=== PATIENT | female | born 1950 | race Caucasian/White ===

== ENCOUNTER → 2018-12-05 15:27 | Outpatient (CLI) | payer MEDICARE, BC, SELFPAY ==
--- NOTE | 2018-12-05 | DI.RAD.S_ITS ---
PROCEDURE: XR ANKLE LT MIN 3V INDICATIONS: Ankle Pain TECHNIQUE: 3 views of the ankle were acquired. COMPARISON: None. FINDINGS: Bones: No fractures or dislocations. Ankle mortise is normally aligned. No suspicious bony lesions. Soft tissues: No tibiotalar joint effusion. Achilles tendon appears normal. Mild soft tissue swelling right ankle joint is seen. IMPRESSION: No ankle fracture or dislocation. Ankle mortise is congruent. Mild ankle soft tissue swelling. Dictated by: Samuel Lemus M.D. on 12/05/2018 at 17:03 Approved by: Samuel Lemus M.D. on 12/05/2018 at 17:04
--- NOTE | 2018-12-05 | DI.RAD.S_ITS ---
PROCEDURE: XR SHOULDER RT MIN 2V INDICATIONS: Shoulder pain TECHNIQUE: 3 views of the shoulder were acquired. COMPARISON: [facility], , SHOULDER MINIMUM 2VIEW RIGHT, 02/06/2007, 12:13. FINDINGS: Bones: Moderate acromioclavicular joint and glenohumeral joint osteoarthritis is seen. No fractures or dislocations. No suspicious bony lesions. Visualized ribs appear intact. Soft tissues: No suspicious soft tissue calcifications. IMPRESSION: Moderate right shoulder joint osteoarthritis. No fracture or dislocation. Dictated by: Samuel Lemus M.D. on 12/05/2018 at 16:57 Approved by: Samuel Lemus M.D. on 12/05/2018 at 17:03
== END ==
PROVIDERS: PCP Family Medicine; Visit Provider Family Medicine
DX: M25.572 Pain in left ankle and joints of left foot (principal); M25.511 Pain in right shoulder; M19.011 Primary osteoarthritis, right shoulder; M79.89 Other specified soft tissue disorders
CPT/HCPCS: 73030; 73610

== ENCOUNTER 2019-01-03 02:08 | Emergency (ER) | payer MEDICARE, BC, SELFPAY ==
[2019-01-03 02:14] VITALS: BP 141/80; PULSE 78; RESP 14; TEMP 36.7; O2SAT 100; BMI 22.1
[2019-01-03 02:58] VITALS: BP 179/101; PULSE 89
[2019-01-03] MEDS: KETOROLAC 60 MG/2 ML VIAL 30 MG IV (02:58)
[2019-01-03] MEDS: PROCHLORPERAZINE 10 MG/2 ML VIAL IV (02:58)
[2019-01-03] MEDS: diphenhydrAMINE 50 MG/ML VIAL 25 MG IV (02:58)
[2019-01-03] MEDS: SODIUM CHLORIDE 0.9% 1,000 ML 1000 ML IV (02:59)
[2019-01-03 03:03] LABS: Add Manual Diff / Slide Review NO; Basophils Absolute Auto 100 /uL (0-100); Basophils Percent Auto 0.7 % (0-2); Eosinophils Absolute Auto 200 /uL (0-450); Eosinophils Percent Auto 1.2 % (2-4); Hematocrit 47.3 % (36-46); Hemoglobin 15.7 g/dL (12.0-16.0); Lymphocytes Absolute Auto 2300 /uL (1100-4500); Lymphocytes Percent Auto 16.6 % (25-40); Mean Corpuscular HGB Conc 33.3 % (30-36); Mean Corpuscular Hemoglobin 28.8 PG (26-34); Mean Corpuscular Volume 86.4 fL (80-100); Monocytes Absolute Auto 600 /uL (0-900); Monocytes Percent Auto 4.6 % (3-14); Neutrophils Absolute Auto 10400 /uL (1500-7000); Neutrophils Percent Auto 76.9 % (50-75); Platelet Count 368 X10^3/uL (150-400); Red Blood Cell Count 5.47 X10^6/uL (4.0-5.2); Red Cell Distribution Width 12.9 % (11.6-14.8); White Blood Cell Count 13.6 X10^3/uL (4.5-11.0)
[2019-01-03 03:16] LABS: BUN Creatinine Ratio 28.3 (6-22); Blood Urea Nitrogen 17 mg/dL (7-17); Calcium 10.1 mg/dL (8.4-10.2); Carbon Dioxide 32 mmol/L (22-32); Chloride 97 mmol/L (98-107); Estimated Glomerular Filt Rate > 60.0 mL/min (>60); Glucose 106 mg/dL (80-110); HEMOLYSIS 28 (0-50); Potassium 3.6 mmol/L (3.4-5.1); Sodium 140 mmol/L (137-145)
[2019-01-03 03:17] VITALS: BP 177/76; PULSE 74; RESP 16; O2SAT 100
--- NOTE | 2019-01-03 03:17 | PC.NURSE ---
Pt denies needs at this time. States my headache is a little bit better can you turn the light off so i can sleep Lights lowered and pt given a warm blanket. Pt curled up rolled over and appears to be sleeping now. Pt on spo2 monitor and bp cuff
--- NOTE | 2019-01-03 03:20 | PC.NURSE ---
paper tape applied, pt stated paper tape does not bother her skin.
--- NOTE | 2019-01-03 03:39 | ED_ITS ---
HPI - Headache General Chief Complaint: Headache Stated Complaint: Headache for 2 weeks Time Seen by Provider: 01/03/19 02:13 Source: patient and EMS Limitations: no limitations History of Present Illness HPI Narrative: The patient is a 68-year-old female who presents with headache. She has a history of migraines and fibromyalgia. She has had ongoing headache today she she says for 2 days. She actually was seen evaluated [facility] on 01/01/2019. At that time she said she fell and hit her head 5 days prior to and that she had a negative head CT at that time. She said she was previously given Dilaudid 2 separate occasions for headache and that is healing thing that helps. She actually took 10 mg of Valium prior to arrival but she says it has not helped. She denies any nausea or vomiting. She is sensitive to light. She is not on any anticoagulation. She was seen at [facility] on 12/15/2018 and she had an MRI prior to that visit. She was seen again on 01/01/2019 where she had a negative head CT. All visit she immediately asked for Dilaudid including today. Complaint: headache Onset (ago): day(s) (2) Related Data Home Medications Medication Instructions Recorded Confirmed Glucosamine Sulfate (GLUCOSAMINE) #0 03/06/13 esomeprazole magnesium [Nexium] 40 mg PO QDAY #0 03/06/13 fluoxetine [Prozac] 80 1 #0 03/06/13 levothyroxine [Synthroid] #0 03/06/13 meloxicam [Mobic] #0 03/06/13 oxycodone [Roxicodone] 5 mg PO Q4P #0 03/06/13 pregabalin [Lyrica] 1 Q DAY #0 03/06/13 rosuvastatin [Crestor] #0 03/06/13 venlafaxine 50 mg PO #0 03/06/13 Allergies Allergy/AdvReac Type Severity Reaction Status Date / Time sulfamethoxazole Allergy Verified 01/03/19 02:19 [From ] trimethoprim [From ] Allergy Verified 01/03/19 02:19 adhesive tape AdvReac Verified 01/03/19 02:19 Review of Systems Review of Systems GENERAL: Denies chills, fatigue, malaise, fever, sweats, travel HEENT: Denies sinus pain, ear pain, sore throat, difficulty swallowing, neck pain RESPIRATORY: Denies dyspnea, cough, wheezing, hemoptysis, sputum. CARDIOVASCULAR: Denies chest pain, palpitations, orthopnea, edema GASTROINTESTINAL: Denies nausea, vomiting, abdominal pain, diarrhea, constipation, melena. : Denies dysuria, frequency, incontinence, hematuria, urinary retention, flank pain. MUSCULOSKELETAL: Denies weakness, joint pain, or bony pain SKIN: No rash, no erythema, no pruritus NEUROLOGIC: Headache PSYCHIATRIC: No concerning psychosocial issues. 12 point review of systems is negative except for those stated above and HPI [facility] Medical History (Updated 01/03/19 @ 05:21 by Jeaneth Dent DO) Fibromyalgia (Acute) Social History Smoking Status: Never smoker Social History Smoking Status: Never smoker Exam Initial Vital Signs Initial Vital Signs: Vital Signs Temperature 98.1 F 01/03/19 02:14 Pulse Rate 78 01/03/19 02:14 Respiratory Rate 14 01/03/19 02:14 Blood Pressure 141/80 H 01/03/19 02:14 Pulse Oximetry 100 01/03/19 02:14 GENERAL: Patient appears in pain, closing eyes. And in no acute distress. HEENT: Head atraumatic,EOMI, pupils reactive, face symmetric, moist mucous membranes CARDIOVASCULAR: Regular rate and rhythm without murmurs, rubs or gallops. RESPIRATORY: Breath sounds equal bilaterally, no wheezes rales or rhonchi. ABDOMEN: Soft, nontender. Normoactive bowel sounds all 4 quadrants. No guarding or rebound. EXTREMITIES: Normal range of motion, no clubbing or edema. Neurovascularly intact NEUROLOGICAL: Alert and oriented x4.Normal gait and speech. Cranial nerves II through XII grossly intact. Good [id number], good wbog-[id number], strength equal bilaterally, no dysarthria or aphasia, sensation in tact to soft touch bilaterally, no visual changes, no facial droop SKIN: Warm, dry, no laceration, no petechiae, no rashes or lesions. Scores NIH Stroke Scale Level of Conciousness: Alert, keenly responsive Ask month/age: Answers both questions correctly. Open/close eyes, close hand: Performs both tasks correctly Best gaze horizontal: Normal Visual sharpe: No visual loss Facial palsy: Normal symetrical movement Left arm drift: No drift for full 10 sec Right arm drift: No drift for full 10 sec Left leg drift: No drift for full 10 sec Right leg drift: No drift for full 10 sec Limb ataxia: Absent Sensory on face/arms/legs: Normal, no sensory loss Best language: No aphasia, normal Dysarthria: Normal Extinction or inattention: No abnormality Total NIH Stroke scale score: 0 Course Orders Ordered: ED Orders 01/03/19 02:55 Basic Metabolic Panel Stat Complete Blood Count AUTO DIFF Stat Discontinued Medications Diphenhydramine HCl (Benadryl) 25 mg IV NOW ONE Stop: 01/03/19 02:15 Last Admin: 01/03/19 02:58 Dose: 25 mg Sodium Chloride (Normal Saline 0.9%) 1,000 mls @ 1,000 mls/hr IV BOLUS ONE Stop: 01/03/19 03:13 Last Admin: 01/03/19 02:59 Dose: 1,000 mls/hr Ketamine HCl (Ketalar) 10 mg IV NOW ONE Stop: 01/03/19 04:50 Last Admin: 01/03/19 05:18 Dose: 10 mg Ketorolac Tromethamine (Toradol) 30 mg IV NOW ONE Stop: 01/03/19 02:15 Last Admin: 01/03/19 02:58 Dose: 30 mg Prochlorperazine (Compazine) 10 mg IV NOW ONE Stop: 01/03/19 02:15 Last Admin: 01/03/19 02:58 Dose: 10 mg Vital Signs - 8 hr 01/03/19 02:14 01/03/19 02:58 01/03/19 03:17 Temperature 98.1 F Pulse Rate 78 89 74 Respiratory Rate 14 16 Blood Pressure 141/80 H 179/101 H Blood Pressure [Right Arm] 177/76 H Pulse Oximetry 100 100 01/03/19 03:53 01/03/19 05:00 Temperature Pulse Rate 82 Respiratory Rate Blood Pressure Blood Pressure [Right Arm] 165/70 H 161/93 H Pulse Oximetry 100 MDM - Headache Lab Data Attestation: I reviewed the patient's lab results. Result diagrams: 01/03/19 02:55 01/03/19 02:55 Lab Results 01/03/19 01/03/19 Range/Units 02:55 02:55 WBC 13.6 H (4.5-11.0) X10^3/uL RBC 5.47 H (4.0-5.2) X10^6/uL Hgb 15.7 (12.0-16.0) g/dL Hct 47.3 H (36-46) % MCV 86.4 (80-100) fL MCH 28.8 (26-34) PG MCHC 33.3 (30-36) % RDW 12.9 (11.6-14.8) % Plt Count 368 (150-400) X10^3/uL Neut % (Auto) 76.9 H (50-75) % Lymph % (Auto) 16.6 L (25-40) % [place] % (Auto) 4.6 (3-14) % Eos % (Auto) 1.2 L (2-4) % Baso % (Auto) 0.7 (0-2) % Neut # (Auto) 21110 H (1910-2483) /uL Lymph # (Auto) 2300 (6271-7002) /uL [place] # (Auto) 600 (0-900) /uL Eos # (Auto) 200 (0-450) /uL Baso # (Auto) 100 (0-100) /uL Sodium 140 (137-145) mmol/L Potassium 3.6 (3.4-5.1) mmol/L Chloride 97 L (98-107) mmol/L Carbon Dioxide 32 (22-32) mmol/L BUN 17 (7-17) mg/dL Creatinine 0.60 (0.52-1.04) mg/dL Estimated GFR > 60.0 (>60) mL/min BUN/Creatinine Ratio 28.3 H (6-22) Glucose 106 (80-110) mg/dL Calcium 10.1 (8.4-10.2) mg/dL MDM Narrative Medical decision making narrative: Patient is sleeping soon after she arrived. Likely the 10 mg of Valium that she took. She was given the migraine cocktails well. 4:40 a.m.. Patient awake still complaining of headache. She has no way of getting home. She has some mild leukocytosis but was put on Decadron from her visit 18th. She febrile no meningeal signs. No focal deficits. At this time I do not see any need for repeat imaging. 6:15 a.m.. Patient received IV ketamine which he says has helped her headache and she says it is now going down and she feels able to go home. Discharge Plan Departure Patient Disposition: Home Clinical Impression: Headache Qualifiers: Headache type: other headache syndrome Qualified Code(s): G44.89 - Other headache syndrome Instructions: DI for Migraine, DI for Headache Activity Restrictions/Additional Instructions: *You have been diagnosed with headache *What to do: Recommend seeing headache specialist for chronic pain management. Rest, increase fluid intake, sleep *Continue to take medications as directed *Follow up with your primary care provider in 2-3 days *Return to ER if you should have worsening headache, neck pain, persistent vomiting or any new, worsening or concerning symptoms Prescriptions: No Action fluoxetine [Prozac] 40 MG capsule 80 1 Qty: 0 RF: 0 meloxicam [Mobic] 7.5 MG tablet Qty: 0 RF: 0 pregabalin [Lyrica] 100 MG capsule 1 Q DAY Qty: 0 RF: 0 esomeprazole magnesium [Nexium] 40 MG capsule,delayed release(DR/EC) 40 mg PO QDAY Qty: 0 RF: 0 levothyroxine [Synthroid] 125 MCG tablet Qty: 0 RF: 0 venlafaxine 50 MG tablet 50 mg PO Qty: 0 RF: 0 rosuvastatin [Crestor] 20 MG tablet Qty: 0 RF: 0 Glucosamine Sulfate (GLUCOSAMINE) Qty: 0 RF: 0 oxycodone [Roxicodone] 5 MG tablet 5 mg PO Q4P Qty: 0 RF: 0 Referrals: Raffi Quiroga MD [Primary Care Provider] -
[2019-01-03 03:53] VITALS: BP 165/70; PULSE 82; O2SAT 100
[2019-01-03 05:00] VITALS: BP 161/93
[2019-01-03] MEDS: KETAMINE 500 MG/5 ML INJ 10 MG IV (05:18)
[2019-01-03 06:43] VITALS: BP 161/90; PULSE 76; RESP 14; O2SAT 99
== END 2019-01-03 06:52 | disposition home or self-care (01) ==
PROVIDERS: Emergency Provider Emergency Medicine; PCP Family Medicine
DX: G44.89 Other headache syndrome (principal)
CPT/HCPCS: 36591; 80048; 85025; 96361; 96374; 96375; 99283; 99284; J0780; J1200; J1885

== ENCOUNTER 2019-04-21 18:15 | Emergency (ER) | payer MEDICARE, BC, SELFPAY ==
[2019-04-21 18:31] VITALS: BP 162/79; PULSE 66; RESP 12; TEMP 36.9; O2SAT 100
[2019-04-21 18:32] VITALS: BP 162/79; PULSE 66; RESP 14; O2SAT 99
--- NOTE | 2019-04-21 18:33 | DI.RAD.S_ITS ---
PROCEDURE: XR CHEST 1V INDICATIONS: chest pain TECHNIQUE: One view of the chest was acquired. COMPARISON: [facility], CR, XR CHEST 2VW, 01/17/2016, 15:40. Located Within [facility], CR, CHEST 2 VIEW, 10/27/2015, 20:09. FINDINGS: Surgical changes and devices: There is bone cement redemonstrated in the lower thoracic spine. Lungs and pleura: There are indistinct peripheral opacities in the left lung base which appears slightly increased in prominence but may been present on the prior studies. Findings are suggestive of pleural plaques. Right lung is clear. No pleural effusions or pneumothorax. Mediastinum: Mediastinal contours appear unchanged. Heart size is normal. Bones and chest wall: No suspicious bony lesions. Overlying soft tissues appear unremarkable. IMPRESSION: 1. Indistinct left basilar peripheral opacities suggestive of pleural plaques appear slightly increased in prominence. Elsewhere, no acute consolidation. Recommend a followup PA and lateral study when clinically feasible. Dictated by: Henry Mabry M.D. on 04/21/2019 at 20:16 Approved by: Henry Mabry M.D. on 04/21/2019 at 20:19
[2019-04-21 18:42] LABS: Add Manual Diff / Slide Review NO; Basophils Absolute Auto 100 /uL (0-100); Basophils Percent Auto 0.7 % (0-2); Eosinophils Absolute Auto 200 /uL (0-450); Eosinophils Percent Auto 1.2 % (2-4); Hematocrit 41.1 % (36-46); Hemoglobin 13.4 g/dL (12.0-16.0); Lymphocytes Absolute Auto 3100 /uL (1100-4500); Lymphocytes Percent Auto 16.7 % (25-40); Mean Corpuscular HGB Conc 32.6 % (30-36); Mean Corpuscular Volume 85.9 fL (80-100); Monocytes Absolute Auto 1400 /uL (0-900); Monocytes Percent Auto 7.6 % (3-14); Neutrophils Absolute Auto 13600 /uL (1500-7000); Neutrophils Percent Auto 73.8 % (50-75); Platelet Count 386 X10^3/uL (150-400); Red Blood Cell Count 4.78 X10^6/uL (4.0-5.2); Red Cell Distribution Width 14.5 % (11.6-14.8); White Blood Cell Count 18.4 X10^3/uL (4.5-11.0)
[2019-04-21] MEDS: ASPIRIN 81 MG CHEW TAB 324 MG PO (18:44)
[2019-04-21 18:46] LABS: Prothrombin Time 11.9 SECONDS (10.1-12.7)
--- NOTE | 2019-04-21 18:47 | ED.CHESTPAIN ---
HPI - Chest Pain General Chief Complaint: Chest Pain Stated Complaint: THINKS HAD A HEART ATTACK SATURDAY Time Seen by Provider: 04/21/19 18:39 Source: patient Mode of arrival: Ambulatory Limitations: no limitations History of Present Illness HPI narrative: The patient had a 1 hour episode of chest pain 4 days ago. She was at home, she leaned over to pick something up. She developed central sternal chest pain, radiating across her chest. She developed dyspnea. She laid down in bed for about 1 hour, symptoms resolved. She has not recently been ill. She has a history of restrictive lung disease diagnosed in her 20s, but has been asymptomatic of any lung disease for many years. She smoked as a youth, not in recent decades. She has no current diagnosis of cardiac or lung disease. She is on medications for hypothyroidism. She also has a past history of hypertension, but has been off medications for several years. She saw her family practice physician today. He started on metoprolol 50 mg b.i.d., advised her to come here for further evaluation. Apparently there is a subtle change on a baseline EKG he has at the office, there is no prior EKG at this hospital. We do not have access to her prior records. The patient has been asymptomatic for 4 days. The patient also explains that she is under lot of stress at home. She did not elaborate. Related Data Home Medications Medication Instructions Recorded Confirmed Glucosamine Sulfate (GLUCOSAMINE) #0 03/06/13 esomeprazole magnesium [Nexium] 40 mg PO QDAY #0 03/06/13 fluoxetine [Prozac] 80 1 #0 03/06/13 levothyroxine [Synthroid] #0 03/06/13 meloxicam [Mobic] #0 03/06/13 oxycodone [Roxicodone] 5 mg PO Q4P #0 03/06/13 pregabalin [Lyrica] 1 Q DAY #0 03/06/13 rosuvastatin [Crestor] #0 03/06/13 venlafaxine 50 mg PO #0 03/06/13 Allergies Allergy/AdvReac Type Severity Reaction Status Date / Time sulfamethoxazole Allergy Verified 01/03/19 02:19 [From ] trimethoprim [From ] Allergy Verified 01/03/19 02:19 adhesive tape AdvReac Verified 01/03/19 02:19 Review of Systems Review of Systems ROS Unobtainable: All systems reviewed & are unremarkable except as noted in HPI and below Constitutional Constitutional: Reports as per HPI, Denies fatigue, Denies lethargy, Denies malaise, Denies night sweats and Denies poor appetite Eyes Comments: No complaints ENT Ears, Nose, Mouth, and Throat: Denies change in voice, Denies vertigo, Denies dizziness, Denies neck pain and Denies sore throat Cardiovascular Cardiovascular: Reports as per HPI and Reports chest pain at rest Respiratory Respiratory: Reports as per HPI (Dyspnea associated with the chest pain 4 days ago.), Denies cough and Denies wheezing Gastrointestinal Gastrointestinal: Denies abdominal pain, Denies diarrhea, Denies nausea and Denies vomiting Musculoskeletal Musculoskeletal: Denies back pain, Denies myalgias, Denies arthralgias and Denies neck pain Integumentary/Breasts Skin/Breast: Denies dry skin, Denies pruritus, Denies erythema and Denies rash Neurologic Neurologic: Denies confusion, Denies vertigo and Denies dizziness Psychiatric Psychiatric: Reports anxiety, Denies confusion and Denies depression Endocrine Endocrine: Denies fatigue Hematologic/Lymphatic Hematologic/Lymphatic: Denies easy bruising Allergic/Immunologic Allergic/Immunologic: Denies wheezing [facility] Medical History (Updated 04/21/19 @ 20:08 by Raffi Casey MD) Fibromyalgia (Acute) Hypertension (Acute) Hypothyroidism (Acute) Restrictive lung disease (Acute) Surgical History (Updated 04/21/19 @ 19:52 by Raffi Casey MD) No pertinent past surgical history (Acute) Social History (Updated 04/21/19 @ 19:52 by Raffi Casey MD) Smoking Status: Former smoker substance use type: does not use Social History (Updated 04/21/19 @ 19:52 by Raffi Casey MD) Smoking Status: Former smoker substance use type: does not use Exam Initial Vital Signs Initial Vital Signs: Vital Signs Temperature 98.4 F 04/21/19 18:31 Pulse Rate 66 04/21/19 18:31 Respiratory Rate 12 04/21/19 18:31 Blood Pressure 162/79 H 04/21/19 18:31 Pulse Oximetry 100 04/21/19 18:31 Const General: cooperative and well developed Nutritional Appearance: well nourished Orientation: alert, awake, oriented x3 and not confused HENMT Face and sinus: normal facial exam Mouth: oral mucosae normal Throat: posterior oropharynx normal Eyes General: appearance normal, both eyes and all related structures Eyelids: eyelids normal Conjunctivae: conjunctivae normal Sclera: sclerae normal Pupils: PERRL EOM: EOM intact bilaterally Neck Neck: full ROM, No lymphadenopathy and No JVD Thyroid: thyroid normal Chest Chest: normal inspection of the chest Resp Effort & Inspection: normal respiratory effort and able to speak in complete sentences Auscultation: clear to auscultation bilaterally, no rales, no rhonchi and no wheezes Cardio Rate: regular rate Rhythm: regular rhythm Heart Sounds: S1 normal, S2 normal, no click, no gallops, no murmurs and no rubs Pulses: normal peripheral pulses GI Inspection: non-distended Palpation: soft, no hepatosplenomegaly, No guarding, No pulsatile mass and No tender Auscultation: normal bowel sounds Back/Spine/Pelvis Back: normal to inspection Skin General: no rashes or lesions noted Neuro General: alert, oriented x3, gait normal and no focal motor deficits Speech: speech normal Extrem General: full ROM, no pedal edema and no calf tenderness Psych Appearance: well kempt Mental Status: mental status grossly normal Attitude: cooperative Thought Content: normal Judgment: judgment good Course Course Course Narrative: The case was discussed with Dr. Lemus with [facility] in [place], [place]. The patient has been asymptomatic of the episode of chest pain for 4 days. She has an intermediate troponin with no critical EKG changes. The family practice doctor started her on Lopressor, I have started on aspirin. The patient will be contacted by Cardiology tomorrow for outpatient follow-up, she will be instructed return if symptoms escalate. Orders Ordered: ED Orders 04/21/19 18:28 EKG-12 Lead Stat 04/21/19 18:30 Complete Blood Count AUTO DIFF Stat Comprehensive Metabolic Panel Stat Free T4 Free Thyroxine Stat Lipase Stat Partial Thromboplastin Time Stat Prothrombin Time INR Stat TSH w/ Reflex to FT4 Stat Troponin & CK Cardiac Panel Stat 04/21/19 18:33 XR chest 1V Stat Discontinued Medications Aspirin (Aspirin Chew) 324 mg PO NOW ONE Stop: 04/21/19 18:34 Last Admin: 04/21/19 18:44 Dose: 324 mg Documented by: SALAZAR Vital Signs Vital signs: Vital Signs - 8 hr 04/21/19 18:31 04/21/19 18:32 04/21/19 19:35 Temperature 98.4 F Pulse Rate 66 66 64 Respiratory Rate 12 14 18 Blood Pressure 162/79 H Blood Pressure [Left Arm] 162/79 H 122/63 Pulse Oximetry 100 99 98 04/21/19 20:09 Temperature Pulse Rate 65 Respiratory Rate 26 H Blood Pressure Blood Pressure [Left Arm] 117/67 Pulse Oximetry 96 MDM - Chest Pain Lab Data Result diagrams: 04/21/19 18:30 04/21/19 18:30 Labs: Lab Results 04/21/19 04/21/19 04/21/19 Range/Units 18:30 18:30 18:30 WBC 18.4 H (4.5-11.0) X10^3/uL RBC 4.78 (4.0-5.2) X10^6/uL Hgb 13.4 (12.0-16.0) g/dL Hct 41.1 (36-46) % MCV 85.9 (80-100) fL MCH 28.0 (26-34) PG MCHC 32.6 (30-36) % RDW 14.5 (11.6-14.8) % Plt Count 386 (150-400) X10^3/uL Neut % (Auto) 73.8 (50-75) % Lymph % (Auto) 16.7 L (25-40) % [place] % (Auto) 7.6 (3-14) % Eos % (Auto) 1.2 L (2-4) % Baso % (Auto) 0.7 (0-2) % Neut # (Auto) 08116 H (9161-2508) /uL Lymph # (Auto) 3100 (9317-1748) /uL [place] # (Auto) 1400 H (0-900) /uL Eos # (Auto) 200 (0-450) /uL Baso # (Auto) 100 (0-100) /uL PT 11.9 (10.1-12.7) SECONDS INR 1.0 (0.9-1.3) APTT 41 H (26.4-36.2) SECONDS Sodium 138 (137-145) mmol/L Potassium 3.5 (3.4-5.1) mmol/L Chloride 98 (98-107) mmol/L Carbon Dioxide 32 (22-32) mmol/L BUN 23 H (7-17) mg/dL Creatinine 0.70 (0.52-1.04) mg/dL Estimated GFR > 60.0 (>60) mL/min BUN/Creatinine Ratio 32.9 H (6-22) Glucose 124 H (80-110) mg/dL Calcium 9.3 (8.4-10.2) mg/dL Total Bilirubin 0.4 (0.2-1.3) mg/dL AST 29 (14-36) IU/L ALT 19 (9-52) IU/L Alkaline Phosphatase 107 (38-126) U/L Total Creatine Kinase 78 (30-135) U/L CK-MB (CK-2) TNP CK-MB (CK-2) Rel Index TNP Troponin I 0.067 H (0.01-0.034) ng/mL Total Protein 7.1 (6.3-8.2) g/dL Albumin 3.9 (3.5-5.0) g/dL Globulin 3.2 (1.7-4.1) g/dL Albumin/Globulin Ratio 1.2 (1.0-2.8) Lipase 58 (23-300) U/L TSH (0.47-4.68) uIU/mL Free T4 (0.78-2.19) ng/dL 04/21/19 Range/Units 18:30 WBC (4.5-11.0) X10^3/uL RBC (4.0-5.2) X10^6/uL Hgb (12.0-16.0) g/dL Hct (36-46) % MCV (80-100) fL MCH (26-34) PG MCHC (30-36) % RDW (11.6-14.8) % Plt Count (150-400) X10^3/uL Neut % (Auto) (50-75) % Lymph % (Auto) (25-40) % [place] % (Auto) (3-14) % Eos % (Auto) (2-4) % Baso % (Auto) (0-2) % Neut # (Auto) (4250-2701) /uL Lymph # (Auto) (3188-8500) /uL [place] # (Auto) (0-900) /uL Eos # (Auto) (0-450) /uL Baso # (Auto) (0-100) /uL PT (10.1-12.7) SECONDS INR (0.9-1.3) APTT (26.4-36.2) SECONDS Sodium (137-145) mmol/L Potassium (3.4-5.1) mmol/L Chloride (98-107) mmol/L Carbon Dioxide (22-32) mmol/L BUN (7-17) mg/dL Creatinine (0.52-1.04) mg/dL Estimated GFR (>60) mL/min BUN/Creatinine Ratio (6-22) Glucose (80-110) mg/dL Calcium (8.4-10.2) mg/dL Total Bilirubin (0.2-1.3) mg/dL AST (14-36) IU/L ALT (9-52) IU/L Alkaline Phosphatase (38-126) U/L Total Creatine Kinase (30-135) U/L CK-MB (CK-2) CK-MB (CK-2) Rel Index Troponin I (0.01-0.034) ng/mL Total Protein (6.3-8.2) g/dL Albumin (3.5-5.0) g/dL Globulin (1.7-4.1) g/dL Albumin/Globulin Ratio (1.0-2.8) Lipase (23-300) U/L TSH 0.08 L (0.47-4.68) uIU/mL Free T4 2.56 H (0.78-2.19) ng/dL Imaging Data Chest x-ray: My impression: Normal ECG Data Attestation: I personally reviewed and interpreted this ECG as follows: Discharge Plan Departure Patient Disposition: Home Clinical Impression: Chest pain Qualifiers: Chest pain type: unspecified Qualified Code(s): R07.9 - Chest pain, unspecified Discharge Date/Time: 04/21/19 20:11 Instructions: DI for Chest Pain Activity Restrictions/Additional Instructions: It is unclear if the chest pain came from her heart, but she need further evaluation. Continue taking the Lopressor prescribed by your doctor, take 1 baby aspirin daily. Follow-up at a local ER if you experience symptoms such as the event 4 days ago. Consider calling 911 if this happens. Expect a call from [facility] tomorrow to arrange follow-up. Prescriptions: No Action fluoxetine [Prozac] 40 MG capsule 80 1 Qty: 0 RF: 0 meloxicam [Mobic] 7.5 MG tablet Qty: 0 RF: 0 pregabalin [Lyrica] 100 MG capsule 1 Q DAY Qty: 0 RF: 0 esomeprazole magnesium [Nexium] 40 MG capsule,delayed release(DR/EC) 40 mg PO QDAY Qty: 0 RF: 0 levothyroxine [Synthroid] 125 MCG tablet Qty: 0 RF: 0 venlafaxine 50 MG tablet 50 mg PO Qty: 0 RF: 0 rosuvastatin [Crestor] 20 MG tablet Qty: 0 RF: 0 Glucosamine Sulfate (GLUCOSAMINE) Qty: 0 RF: 0 oxycodone [Roxicodone] 5 MG tablet 5 mg PO Q4P Qty: 0 RF: 0 Referrals: Alejo Lemus MD [Non-Staff] - Raffi Quiroga MD [Primary Care Provider] -
[2019-04-21 18:49] LABS: PTT Partial Thromboplastin Tim 41 SECONDS (26.4-36.2)
--- NOTE | 2019-04-21 18:50 | PC.NURSE ---
Very active 68 yo female w/ pmh including hypertension as well as hypothyroid, fibromyalgia, chronic opiod use. Pt states she stopped most of her medications about a year ago and takes her levothyroxine only occasionally. She saw her PCP today after having a single episode of chest pain associated w/ shortness of breath. Episode was self limiting and she has not had pain since.
[2019-04-21 18:51] LABS: Alanine Aminotransferase 19 IU/L (9-52); Albumin 3.9 g/dL (3.5-5.0); Albumin Globulin Ratio 1.2 (1.0-2.8); Alkaline Phosphatase 107 U/L (38-126); Aspartate Aminotransferase 29 IU/L (14-36); BUN Creatinine Ratio 32.9 (6-22); Bilirubin Total 0.4 mg/dL (0.2-1.3); Blood Urea Nitrogen 23 mg/dL (7-17); Calcium 9.3 mg/dL (8.4-10.2); Carbon Dioxide 32 mmol/L (22-32); Chloride 98 mmol/L (98-107); Creatine Kinase 78 U/L (30-135); Estimated Glomerular Filt Rate > 60.0 mL/min (>60); Globulin 3.2 g/dL (1.7-4.1); Glucose 124 mg/dL (80-110); HEMOLYSIS < 15 (0-50); Lipase 58 U/L (23-300); Potassium 3.5 mmol/L (3.4-5.1); Sodium 138 mmol/L (137-145); Total Protein 7.1 g/dL (6.3-8.2)
[2019-04-21 19:02] LABS: Troponin I 0.067 ng/mL (0.01-0.034)
[2019-04-21 19:34] LABS: TSH w/ Reflex to FT4 0.08 uIU/mL (0.47-4.68)
[2019-04-21 19:35] VITALS: BP 122/63; PULSE 64; RESP 18; O2SAT 98
[2019-04-21 20:00] LABS: Free T4, Direct Thyroxine 2.56 ng/dL (0.78-2.19)
[2019-04-21 20:09] VITALS: BP 117/67; PULSE 65; RESP 26; O2SAT 96
== END 2019-04-21 20:11 | disposition home or self-care (01) ==
PROVIDERS: Emergency Provider Emergency Medicine; PCP Family Medicine
DX: R07.9 Chest pain, unspecified (principal)
CPT/HCPCS: 36415; 71045; 80053; 82550; 83690; 84439; 84443; 84484; 85025; 85610; 85730; 93005; 99283; 99285

== ENCOUNTER → 2019-12-28 17:37 | Outpatient (CLI) | payer MEDICARE, BC, SELFPAY ==
--- NOTE | 2019-12-28 | DI.RAD.S_ITS ---
PROCEDURE: XR SHOULDER RT MIN 2V INDICATIONS: PAIN IN RT SHOULDER TECHNIQUE: 3 views of the shoulder were acquired. COMPARISON: [facility], , XR SHOULDER RT MIN 2V, 12/05/2018, 15:40. FINDINGS: Bones: No acute fractures or dislocations. No suspicious bony lesions. Visualized ribs appear intact. Moderate glenohumeral and AC joint degeneration. Slight lateral downsloping of the acromion. Chronic right rib fractures Soft tissues: No suspicious soft tissue calcifications. IMPRESSION: Moderate right shoulder joint degeneration as before. If the patient's pain or other symptoms persist, consider further evaluation with MRI Dictated by: Maico Shah M.D. on 12/29/2019 at 9:05 Approved by: Maico Shah M.D. on 12/29/2019 at 9:21
== END ==
PROVIDERS: PCP Family Medicine; Referring Provider Family Medicine; Visit Provider Family Medicine
DX: M25.511 Pain in right shoulder (principal); M19.011 Primary osteoarthritis, right shoulder
CPT/HCPCS: 73030

== ENCOUNTER → 2020-03-04 15:06 | Outpatient (CLI) | payer MEDICARE, BC, SELFPAY ==
--- NOTE | 2020-03-04 | DI.CT.S_ITS ---
PROCEDURE: CT ABDOMEN PELVIS WO CON INDICATIONS: Unspecified abdominal pain TECHNIQUE: Noncontrast 5 mm thick sections acquired from the diaphragms to the symphysis. 5 mm coronal and sagittal reformats were then performed. For radiation dose reduction, the following was used: automated exposure control, adjustment of mA and/or kV according to patient size. COMPARISON: None. FINDINGS: Image quality: Excellent. ABDOMEN: Lung bases: Lung bases are clear. Heart size is normal. Solid organs: Liver is normal in size, but internal detail is somewhat limited by absence of intravenous contrast. What may be a hepatic hemangioma can be seen at the right and left hepatic lobes on series 2, image 12, slightly larger on the left than the right, and measuring up to 1.3 cm on the left at the left lateral hepatic segment and within the anterior right hepatic segment measuring 1.0 cm. Gallbladder has been previously resected . Pancreas is normal in contours. Spleen is normal in size. No adrenal nodules. Kidneys are normal in size, without hydronephrosis or nephrolithiasis. Peritoneum and bowel: Unenhanced bowel loops demonstrate normal wall thickness and caliber. No free fluid or air. Colonic obstipation is moderate, greater on the right than the left. Nodes and vessels: No retroperitoneal or mesenteric adenopathy by size criteria. Aorta and inferior vena cava are normal in caliber. Miscellaneous: No ventral hernias. PELVIS: Genitourinary: Bladder wall thickness is normal. Miscellaneous: No inguinal hernias or adenopathy. Bones: No suspicious bony lesions. No vertebral body compression fractures. IMPRESSION: The study is moderately compromised by absence of both oral and intravenous contrast. Two small hypodensities within the liver at the same axial level are considered most likely a manifestation of hemangiomas measuring up to 1.3 cm in maximal dimension. No definite infection or neoplasm is found. Generalized moderate colonic obstipation, right greater than left. Dictated by: Juancho Hathaway M.D. on 03/04/2020 at 16:33 Approved by: Juancho Hathaway M.D. on 03/04/2020 at 16:37
== END ==
PROVIDERS: PCP Family Medicine; Referring Provider Family Medicine; Visit Provider Internal Medicine
DX: R10.9 Unspecified abdominal pain (principal); K59.00 Constipation, unspecified
CPT/HCPCS: 74176

== ENCOUNTER 2020-07-19 17:30 | Emergency (ER) | payer MEDICARE, BC, SELFPAY ==
[2020-07-19 17:51] VITALS: BP 128/58; PULSE 59; RESP 18; TEMP 36.9; O2SAT 100
--- NOTE | 2020-07-19 17:57 | DI.RAD.S_ITS ---
PROCEDURE: XR FOOT RT MIN 3V INDICATIONS: heavy item dropped on foot. TECHNIQUE: 3 views of the foot were acquired. COMPARISON: None. FINDINGS: Bones: No fractures or dislocations. No suspicious bony lesions. Scattered degenerative subchondral sclerosis and spurring. Soft tissues: No tibiotalar joint effusion. Achilles tendon appears normal. IMPRESSION: No fracture. If the patient's symptoms do not improve recommend followup radiographs in 10 days to assess for healing sclerosis/occult injury. Dictated by: Maico Shah M.D. on 07/19/2020 at 18:24 Approved by: Maico Shah M.D. on 07/19/2020 at 18:25
--- NOTE | 2020-07-19 19:38 | ED.LOWEXIN ---
HPI - Extremity Injury (Lower) General Chief Complaint: Extremity Injury, Lower Stated Complaint: rt foot injury Time Seen by Provider: 07/19/20 18:05 Source: patient Mode of arrival: Wheelchair Limitations: no limitations History of Present Illness HPI Narrative: Patient is a 70-year-old female here for evaluation of a right foot injury. Her there today she had a porcelain pedestal sink fall over and land on the top of her foot. She did take 2 Percocet prior to arrival. Describes pain on the top her foot and on her 3rd toe which has some bruising. Related Data Home Medications Medication Instructions Recorded Confirmed Glucosamine Sulfate (GLUCOSAMINE) #0 03/06/13 esomeprazole magnesium [Nexium] 40 mg PO QDAY #0 03/06/13 fluoxetine [Prozac] 80 1 #0 03/06/13 levothyroxine [Synthroid] #0 03/06/13 meloxicam [Mobic] #0 03/06/13 oxycodone [Roxicodone] 5 mg PO Q4P #0 03/06/13 pregabalin [Lyrica] 1 Q DAY #0 03/06/13 rosuvastatin [Crestor] #0 03/06/13 venlafaxine 50 mg PO #0 03/06/13 Allergies Allergy/AdvReac Type Severity Reaction Status Date / Time sulfamethoxazole Allergy Verified 01/03/19 02:19 [From ] trimethoprim [From ] Allergy Verified 01/03/19 02:19 adhesive tape AdvReac Verified 01/03/19 02:19 Review of Systems Constitutional Constitutional: Denies fever(s) and Denies headache(s) ENT Ears, Nose, Mouth, and Throat: Denies headache(s) Musculoskeletal Musculoskeletal: Denies tingling Comments: Right foot pain Integumentary/Breasts Comments: Bruising around the toes of the right foot Neurologic Neurologic: Denies headache(s) and Denies tingling Hematologic/Lymphatic Hematologic/Lymphatic: Denies easy bleeding and Denies easy bruising Allergic/Immunologic Allergic/Immunologic: Denies urticaria Patient History Medical History Fibromyalgia Hypertension Hypothyroidism Restrictive lung disease Surgical History (Updated 04/21/19 @ 19:52 by Raffi Casey MD) No pertinent past surgical history Social History Smoking Status: Former smoker substance use type: does not use Smoking Status: Former smoker alcohol intake frequency: 0-2 drinks per day Substance Use Type: marijuana Exam Initial Vital Signs Initial Vital Signs: Vital Signs Temperature 98.5 F 07/19/20 17:51 Pulse Rate 59 L 07/19/20 17:51 Respiratory Rate 18 07/19/20 17:51 Blood Pressure 128/58 L 07/19/20 17:51 Pulse Oximetry 100 07/19/20 17:51 Const General: cooperative and comfortable Limitations: mental status not altered HENMT Head: normal to inspection and normocephalic Cardio Pulses: dorsalis pedis present Skin Other: Patient has bruising along the 3rd and 4th toe. Neuro Sensory Exam: no sensory deficits noted Extrem Other: Tenderness on the dorsum of the foot and along the 3rd and 4th toes Psych Appearance: grossly normal and well kempt Course Orders Ordered: ED Orders 07/19/20 17:57 XR foot RT min 3V Stat Vital Signs Vital signs: Vital Signs - 8 hr 07/19/20 19:52 Temperature 97.0 F L Pulse Rate 53 L Respiratory Rate 16 Blood Pressure 133/59 L Pulse Oximetry 96 MDM - Extremity Injury (Lower) Imaging Data Extremity x-ray #1: Radiologist's Impression: [address] [id number] ReportSigned Patient: Sue Martin KMR#: [id number]: 1950cct:[id number]/Sex: 70 / FDate of Service: 07/19/20Loc: EDAccession Number: [id number] Procedure: XR foot RT min 3V Ordering Provider: Jeaneth Dent D.O. PROCEDURE: XR FOOT RT MIN 3V INDICATIONS: heavy item dropped on foot. TECHNIQUE: 3 views of the foot were acquired. COMPARISON: None. FINDINGS: Bones: No fractures or dislocations. No suspicious bony lesions. Scattered degenerative subchondral sclerosis and spurring. Soft tissues: No tibiotalar joint effusion. Achilles tendon appears normal. IMPRESSION: No fracture. If the patient's symptoms do not improve recommend followup radiographs in 10 days to assess for healing sclerosis/occult injury. Dictated by: Maico Shah M.D. on 07/19/2020 at 18:24 Approved by: Maico Shah M.D. on 07/19/2020 at 18:25 MDM Narrative Medical decision making narrative: There were no fractures on the x-ray. Patient is neurovascularly intact. Discussed this with the patient. Discussed return precautions and follow-up instructions. She expressed understanding and agreement. Discharge Plan Departure Patient Disposition: Home Clinical Impression: Contusion of foot Qualifiers: Encounter type: initial encounter Laterality: right Qualified Code(s): S90.31XA - Contusion of right foot, initial encounter Instructions: How To Perform RICE (Rest, Ice, Compress, Elevate) Activity Restrictions/Additional Instructions: There were no fractures on the x-ray. You can walk on it as tolerated. Return to the emergency department for any new or worsening symptoms Prescriptions: No Action fluoxetine [Prozac] 40 MG capsule 80 1 Qty: 0 RF: 0 meloxicam [Mobic] 7.5 MG tablet Qty: 0 RF: 0 pregabalin [Lyrica] 100 MG capsule 1 Q DAY Qty: 0 RF: 0 esomeprazole magnesium [Nexium] 40 MG capsule,delayed release(DR/EC) 40 mg PO QDAY Qty: 0 RF: 0 levothyroxine [Synthroid] 125 MCG tablet Qty: 0 RF: 0 venlafaxine 50 MG tablet 50 mg PO Qty: 0 RF: 0 rosuvastatin [Crestor] 20 MG tablet Qty: 0 RF: 0 Glucosamine Sulfate (GLUCOSAMINE) Qty: 0 RF: 0 oxycodone [Roxicodone] 5 MG tablet 5 mg PO Q4P Qty: 0 RF: 0 Referrals: Raffi Quiroga MD [Primary Care Provider] -
[2020-07-19 19:52] VITALS: BP 133/59; PULSE 53; RESP 16; TEMP 36.1; O2SAT 96
== END 2020-07-19 19:59 | disposition home or self-care (01) ==
PROVIDERS: Emergency Provider Emergency Medicine; PCP Family Medicine
DX: S90.31XA Contusion of right foot, initial encounter (principal); W20.8XXA Other cause of strike by thrown, projected or falling object, initial encounter
CPT/HCPCS: 73630; 99281; 99283

== ENCOUNTER → 2020-08-16 14:35 | Outpatient (CLI) | payer MEDICARE, BC, SELFPAY ==
--- NOTE | 2020-08-16 14:38 | DI.US.S_ITS ---
PROCEDURE: US CAROTID DOPPLER BI INDICATIONS: STENOSIS TECHNIQUE: Color and pulse Doppler interrogation was performed of both carotid systems, with image documentation and velocity measurements. COMPARISON: None. FINDINGS: Stenosis calculations are based on SRU (Society of Radiologists in Ultrasound) criteria. Right side: Brachial blood pressure: 128/69 mm Hg. Common carotid artery peak systolic velocity: 70 cm/sec. Internal carotid artery peak systolic velocity: 49 cm/sec. Internal carotid artery end diastolic velocity: 12 cm/sec. External carotid artery peak systolic velocity: 77 cm/sec. ICA/CCA peak systolic ratio: 0.[address] scale imaging description: Mild scattered plaque. Percent internal carotid artery stenosis: Less than 50% . Vertebral artery: Flow direction is antegrade. Left side: Brachial blood pressure: 114/68 mm Hg. Common carotid artery peak systolic velocity: 78 cm/sec. Internal carotid artery peak systolic velocity: 61 cm/sec. Internal carotid artery end diastolic velocity: 16 cm/sec. External carotid artery peak systolic velocity: 53 cm/sec. ICA/CCA peak systolic ratio: 0.[address] scale imaging description: Mild scattered plaque Percent internal carotid artery stenosis: Less than 50% . Vertebral artery: Flow direction is antegrade. IMPRESSION: Less than 50% bilateral internal carotid artery stenosis. Dictated by: Arun Jorgensen [facility] Interpreted: Samuel Lemus MD on 08/16/2020 at 15:29 Approved by: Samuel Lemus M.D. on 08/16/2020 at 16:39
== END ==
PROVIDERS: PCP Family Medicine; Referring Provider Family Medicine; Visit Provider Family Medicine
DX: I65.23 Occlusion and stenosis of bilateral carotid arteries (principal)
CPT/HCPCS: 93880

== ENCOUNTER → 2020-11-22 11:03 | Outpatient (CLI) | payer MEDICARE, BC, SELFPAY ==
[2020-11-22 11:40] LABS: COVID19 -Nasal RAPID Negative (Negative)
== END ==
PROVIDERS: PCP Family Medicine; Referring Provider Internal Medicine; Visit Provider Internal Medicine
DX: Z20.822 Contact with and (suspected) exposure to COVID-19 (principal)
CPT/HCPCS: 87635; C9803

== ENCOUNTER → 2020-11-23 15:14 | Outpatient (CLI) | payer MEDICARE, BC, SELFPAY ==
--- NOTE | 2020-11-30 09:22 | PM.PFT.1 ---
Pulmonary Function Test Referral & Results Date Patient Seen: 11/23/20 Requesting provider: Raffi Quiroga Results: The spirometry demonstrates an FVC of 1.64 L which is 74% of predicted. The FEV1 was measured at 1.26 L which is 76% of predicted. The FEV1/FVC ratio was 77 which is 100% of predicted. Following the administration of bronchodilator there was a 44% improvement in FEF 25-75%. Lung volumes show an SVC of 2.01 L which is 92% of predicted. The diffusing capacity was measured at 10.90 which is 73% of predicted. No hemoglobin value was provided, so no correction for potential anemia could be made, if appropriate. The maximum voluntary ventilation was reduced Interpretation: This study demonstrates perhaps very mild obstructive lung disease based on reduction FEV1. FEV1/FVC ratio is preserved however. There is an element of improvement in small airway flow after bronchodilator based on improvement in FEF 25-75%, the supporting the possibility of mild obstructive lung disease Lung volumes are normal There is a minimal reduction in diffusing capacity suggesting element of disease at the capillary alveolar level
== END ==
PROVIDERS: PCP Family Medicine; Referring Provider Family Medicine; Visit Provider Family Medicine
DX: R06.02 Shortness of breath (principal)
CPT/HCPCS: 94060; 94726; 94729

== ENCOUNTER → 2020-12-20 15:45 | Outpatient (CLI) | payer MEDICARE, BC, SELFPAY ==
--- NOTE | 2020-12-20 | DI.MRI.S_ITS ---
PROCEDURE: MR HEAD/BRAIN WO CON INDICATIONS: COGNITIVE IMPAIRMENT TECHNIQUE: Non-contrast axial T1 spin echo, axial T2 fast spin echo, sagittal and axial FLAIR, coronal T2 fast spin echo, axial gradient echo, axial diffusion and ADC through the brain. COMPARISON: [facility], MR, BRAIN WITH AND WITHOUT CONTRAS, 02/07/2009, 12:53. FINDINGS: Image quality: Excellent. CSF spaces: Ventricles appear symmetric in size and shape. Basal cisterns are patent. No extra-axial fluid collections. Brain: No intracranial bleeds or mass effects. There is cerebral volume loss for age. There are minimal periventricular and deep white matter chronic small vessel ischemic changes. Brainstem appears normal. Diffusion-weighted images show no acute ischemic insults. No chronic ischemic insults. Normal intravascular flow voids are present. Skull and face: Calvarial bone marrow is normal in signal. Orbits are normal. Sinuses: Sinuses and mastoids are clear. IMPRESSION: 1. Mild volume loss and minimal small vessel ischemic disease. 2. No acute process. No recent infarct. Dictated by: Sukhjinder Martins M.D. on 12/20/2020 at 16:42 Approved by: Sukhjinder Martins M.D. on 12/20/2020 at 16:43
== END ==
PROVIDERS: PCP Family Medicine; Referring Provider Specialist; Visit Provider Specialist
DX: R41.89 Other symptoms and signs involving cognitive functions and awareness (principal); G40.909 Epilepsy, unspecified, not intractable, without status epilepticus; I67.82 Cerebral ischemia
CPT/HCPCS: 70551

== ENCOUNTER → 2021-02-08 10:56 | Outpatient (CLI) | payer MEDICARE, BC, SELFPAY ==
--- NOTE | 2021-02-08 | DI.RAD.S_ITS ---
PROCEDURE: XR CHEST 2V INDICATIONS: Pulmonary fibrosis, unspecified TECHNIQUE: 2 views of the chest were acquired. COMPARISON: [facility], CR, XR CHEST 1V, 04/21/2019, 18:36. FINDINGS: Surgical changes and devices: Post vertebroplasty changes are noted in lower thoracic spine vertebral bodies. Lungs and pleura: Lungs are clear. No pleural effusions or pneumothorax. Mediastinum: Mediastinal contours are normal. Heart size is normal. Bones and chest wall: Old healed right posterior lateral upper rib fractures are seen. Soft tissues appear unremarkable. IMPRESSION: No acute cardiopulmonary pathology. Dictated by: Samuel Lemus M.D. on 02/08/2021 at 11:41 Approved by: Samuel Lemus M.D. on 02/08/2021 at 11:41
[2021-02-08 12:00] LABS: Alanine Aminotransferase 21 IU/L (<35); Albumin 4.4 g/dL (3.5-5.0); Albumin Globulin Ratio 1.5 (1.0-2.8); Alkaline Phosphatase 94 U/L (38-126); Aspartate Aminotransferase 46 IU/L (14-36); BUN Creatinine Ratio 33.3 (6-22); Bilirubin Total 0.5 mg/dL (0.2-1.3); Blood Urea Nitrogen 30 mg/dL (7-17); Calcium 9.8 mg/dL (8.4-10.2); Carbon Dioxide 30 mmol/L (22-32); Chloride 101 mmol/L (98-107); Estimated Glomerular Filt Rate > 60.0 mL/min (>60); Glucose 149 mg/dL (80-110); HEMOLYSIS < 15 (0-50); Potassium 4.7 mmol/L (3.4-5.1); Sodium 139 mmol/L (137-145); Total Protein 7.4 g/dL (6.3-8.2)
[2021-02-08 12:01] LABS: Add Manual Diff / Slide Review NO; Basophils Absolute Auto 100 /uL (0-100); Basophils Percent Auto 0.5 % (0-2); Eosinophils Absolute Auto 200 /uL (0-450); Eosinophils Percent Auto 2.3 % (2-4); Hematocrit 39.1 % (36-46); Lymphocytes Absolute Auto 2200 /uL (1100-4500); Lymphocytes Percent Auto 20.8 % (25-40); Mean Corpuscular HGB Conc 33.2 % (30-36); Mean Corpuscular Volume 87.4 fL (80-100); Monocytes Absolute Auto 900 /uL (0-900); Monocytes Percent Auto 8.6 % (3-14); Neutrophils Absolute Auto 7100 /uL (1500-7000); Neutrophils Percent Auto 67.8 % (50-75); Platelet Count 321 X10^3/uL (150-400); Red Blood Cell Count 4.47 X10^6/uL (4.0-5.2); Red Cell Distribution Width 14.4 % (11.6-14.8); White Blood Cell Count 10.5 X10^3/uL (4.5-11.0)
[2021-02-08 13:08] LABS: Folate > 20.0 ng/mL (2.76-20.0); Vitamin B12 948 pg/mL (239-931)
[2021-02-10 15:45] LABS: Lamotrigine Lamictal <1.0 ug/mL (2.0-20.0)
== END ==
PROVIDERS: PCP Family Medicine; Referring Provider Family Medicine; Visit Provider Family Medicine
DX: J84.10 Pulmonary fibrosis, unspecified (principal); E11.8 Type 2 diabetes mellitus with unspecified complications; I10 Essential (primary) hypertension; E03.9 Hypothyroidism, unspecified; R06.02 Shortness of breath; F41.0 Panic disorder [episodic paroxysmal anxiety]; M79.7 Fibromyalgia
CPT/HCPCS: 36415; 71046; 80053; 80175; 82607; 82746; 83036; 85025

== ENCOUNTER 2021-03-07 21:49 | Emergency (ER) | payer MEDICARE, BC, SELFPAY ==
[2021-03-07 21:53] VITALS: BP 145/63; PULSE 97; RESP 18; TEMP 37; O2SAT 98
--- NOTE | 2021-03-07 21:58 | DI.RAD.S_ITS ---
PROCEDURE: XR ELBOW RT MIN 3V INDICATIONS: fall TECHNIQUE: 3 views of the elbow were acquired. COMPARISON: None. FINDINGS: Bones: Age indeterminate impaction involving radial neck is seen.. No suspicious bony lesions. Osteoarthritic changes are noted in elbow joints. Soft tissues: There is a small elbow joint effusion with displacement of anterior fat pad.. No suspicious soft tissue calcifications. IMPRESSION: Age indeterminate impaction fracture involving radial neck. Small joint effusion is present. Elbow joint osteoarthritis. No discrepancies from preliminary reading. Dictated by: Samuel Lemus M.D. on 03/08/2021 at 8:43 Approved by: Samuel Lemus M.D. on 03/08/2021 at 8:44
--- NOTE | 2021-03-07 21:58 | DI.RAD.S_ITS ---
PROCEDURE: XR SHOULDER RT MIN 2V INDICATIONS: fall TECHNIQUE: 2 views of the shoulder were acquired. COMPARISON: [facility], CR, XR SHOULDER RT MIN 2V, 12/28/2019, 17:43. FINDINGS: Bones: No fractures or dislocations. Moderate acromioclavicular joint and glenohumeral joint osteoarthritic changes are seen. No suspicious bony lesions. Visualized ribs appear intact. Soft tissues: No suspicious soft tissue calcifications. IMPRESSION: No acute right shoulder fracture or dislocation. Moderate shoulder joint osteoarthritis. No discrepancies from preliminary reading. Dictated by: Samuel Lemus M.D. on 03/08/2021 at 8:31 Approved by: Samuel Lemus M.D. on 03/08/2021 at 8:43
== END 2021-03-08 00:21 | disposition left against medical advice (07) ==
PROVIDERS: Emergency Provider Emergency Medicine; PCP Family Medicine
DX: S49.91XA Unspecified injury of right shoulder and upper arm, initial encounter (principal); W19.XXXA Unspecified fall, initial encounter
CPT/HCPCS: 73030; 73080; 99281

== ENCOUNTER → 2021-06-21 17:49 | Outpatient (CLI) | payer MEDICARE, BC, SELFPAY ==
--- NOTE | 2021-06-21 | DI.MRI.S_ITS ---
PROCEDURE: MR SHOULDER RT WO CON INDICATIONS: Pain in right shoulder TECHNIQUE: Noncontrast oblique coronal T2 fast spin echo with fat saturation, oblique sagittal T1 spin echo and T2 fast spin echo with fat saturation, axial T1 spin echo and T2 fast spin echo with fat saturation through the shoulder. COMPARISON: [facility], CR, XR SHOULDER 2+ VIEWS RIGHT, 05/27/2021, 21:37. FINDINGS: Rotator cuff: Severe supraspinatus tendinopathy with partial thickness articular and bursal sided tear although no definite large or retracted full-thickness defect. There is infraspinatus tendinopathy and thickening with bursal surface fraying partial-thickness articular sided tear. Teres minor tendon appears intact. Subscapularis tendinopathy with high-grade partial thickness articular and bursal sided tear. Diffuse atrophy of the rotator cuff muscles involving the subscapularis infraspinatus and supraspinatus. Bones and bursae: No bone marrow contusions or fractures. Moderate joint effusion. There is ill-defined marrow edema with serpiginous and geographic appearance for example image 9/8. Moderate hypertrophic acromioclavicular joint degeneration. Acromion demonstrates conventional anatomy, without an os acromiale. Moderate subacromial-subdeltoid bursitis. Capsule and soft tissues: Labrum: Marked blunting of the superior labrum. There is also blunted appearance of amorphous intermediate signal changes involving the inferior, anterior and posterior segments. There is early chondrolabral separation at the posterior segment and diffuse partial thickness glenohumeral chondral loss. Glenohumeral ligaments: Inferior and superior glenohumeral ligaments are intact. Biceps tendon: Intra-articular segment not seen, likely indicating rupture. Rotator interval: Normal signal intensity. Coracohumeral ligament: Intact. IMPRESSION: Marked edema involving the surgical neck and greater tuberosity of the humerus, which could be related to bone infarct, versus reactive changes or marrow contusion. A discrete lesion is thought to be less likely and not seen. Please correlate clinically. Recommend continued surveillance with serial shoulder radiographs. High-grade partial-thickness rotator cuff tear as detailed above. Diffuse atrophy of the rotator cuff muscles. Moderate subacromial-subdeltoid bursitis Circumferential chronic appearing tear/degeneration of the labrum. Early chondrolabral separation at the posterior glenoid and diffuse partial-thickness chondral loss. Moderate joint effusion Dictated by: Maico Shah M.D. on 06/22/2021 at 8:50 Approved by: Maico Shah M.D. on 06/22/2021 at 9:55
== END ==
PROVIDERS: PCP Family Medicine; Referring Provider Family Medicine; Visit Provider Family Medicine
DX: M75.111 Incomplete rotator cuff tear or rupture of right shoulder, not specified as traumatic (principal); M25.511 Pain in right shoulder; M75.51 Bursitis of right shoulder; M25.411 Effusion, right shoulder
CPT/HCPCS: 73221

== ENCOUNTER 2021-09-12 17:23 | Emergency (ER) | payer MEDICARE, BC, SELFPAY ==
[2021-09-12 17:26] VITALS: BP 137/60; PULSE 54; RESP 18; TEMP 36.3; O2SAT 96
--- NOTE | 2021-09-12 19:25 | DI.RAD.S_ITS ---
PROCEDURE: XR RIBS RT MIN 3V W CXR 1V INDICATIONS: fall, right rib pain TECHNIQUE: 2 views of the right ribs were acquired, along with a single view chest. COMPARISON: [facility], CR, XR RIBS RIGHT WITH PA CHEST, 05/27/2021, 21:37. [facility], CR, XR SHOULDER RT MIN 2V, 03/07/2021, 21:53. FINDINGS: Surgical changes and devices: Cholecystectomy clips. Bones and chest wall: Prior T10-T11 vertebroplasty. Right lateral 10th rib minimally displaced rib fracture. Remote right 5-7th rib fractures. No suspicious bony lesions. Overlying soft tissues appear unremarkable. Lungs and pleura: No pleural effusions or pneumothorax. No consolidation. Prominent interstitial markings. Prominent lung volumes. Mediastinum: Mediastinal contours appear unchanged. Heart size is prominent. IMPRESSION: Right lateral 10th rib fracture. Remote right 5-7th rib fractures. Dictated by: Kartik Lewis M.D. on 09/12/2021 at 20:12 Approved by: Kartik Lewis M.D. on 09/12/2021 at 20:15
--- NOTE | 2021-09-12 20:05 | ED.FALL ---
HPI - Fall General Chief Complaint: Fall Stated Complaint: GLF, thinks broke sternum/ribs/etc Time Seen by Provider: 09/12/21 19:46 Source: patient Mode of arrival: Ambulatory History of Present Illness HPI Narrative: 71-year-old female former smoker with history of GERD, restrictive lung disease, hypertension and gait disturbance presents with a chief complaint of a ground level, mechanical fall 5 days ago in which she was pulled to the ground by and excited dog attached to leash. She fell forward and essentially rolled while landing on her right anterior chest. She denies any head neck or back pain. She denies any prodromal symptoms such as dizziness, weakness or lightheadedness. She states that she had been doing relatively well until her cat jumped on her anterior chest 3 days ago and now she has significant, sharp and stabbing anterior chest pain with deep breath, motion and palpation. Related Data Home Medications Medication Instructions Recorded Confirmed Glucosamine Sulfate (GLUCOSAMINE) #0 03/06/13 esomeprazole magnesium 40 mg 40 mg PO QDAY #0 03/06/13 capsule,delayed release (Nexium) fluoxetine 40 mg capsule (Prozac) 80 1 #0 03/06/13 levothyroxine 125 mcg tablet #0 03/06/13 (Synthroid) meloxicam 7.5 mg tablet (Mobic) #0 03/06/13 oxycodone 5 mg tablet (Roxicodone) 5 mg PO Q4P #0 03/06/13 pregabalin 100 mg capsule (Lyrica) 1 Q DAY #0 03/06/13 rosuvastatin 20 mg tablet (Crestor) #0 03/06/13 venlafaxine 50 mg tablet 50 mg PO #0 03/06/13 Previous Rx's Medication Instructions Recorded ketorolac 10 mg tablet 10 mg PO Q6H PRN #14 tab 09/12/21 lidocaine 5 % topical patch 1 patch TOP DAILY #15 each 09/12/21 (Lidoderm) Allergies Allergy/AdvReac Type Severity Reaction Status Date / Time sulfamethoxazole Allergy Verified 09/12/21 17:36 [From ] trimethoprim [From ] Allergy Verified 09/12/21 17:36 adhesive tape AdvReac Verified 09/12/21 17:36 Review of Systems Review of Systems Narrative: GENERAL: Denies chills, fatigue, malaise, fever, sweats. HEENT: Denies sinus pain, ear pain, sore throat, difficulty swallowing, dizziness. RESPIRATORY: Denies dyspnea, cough, wheezing, hemoptysis, sputum. CARDIOVASCULAR: See HPI GASTROINTESTINAL: Denies nausea, vomiting, abdominal pain, diarrhea, constipation, melena. : Denies dysuria, frequency, incontinence, hematuria, urinary retention. MUSCULOSKELETAL: denies weakness, joint pain, or bony pain SKIN: Denies rash, skin lesions, or other NEUROLOGIC: Denies weakness, headache, numbness, change in speech, confusion, seizures, incoordination. PSYCHIATRIC: No concerning psychosocial issues. 12 point review of systems is negative except for those stated above Patient History Medical History Fibromyalgia Hypertension Hypothyroidism Restrictive lung disease Surgical History (Updated 04/21/19 @ 19:52 by Raffi Casey MD) No pertinent past surgical history Social History Smoking Status: Former smoker substance use type: does not use Smoking Status: Former smoker alcohol intake frequency: 0-2 drinks per day Substance Use Type: marijuana Exam Narrative Exam Narrative: GENERAL: [71 year old patient appears stated age. Well-developed patient, in mild distress. HEAD: Atraumatic. Normocephalic. EYES: Pupils equal round and reactive. Extraocular motions intact. No scleral icterus. No injection or drainage. ENT: Nose without bleeding, purulent drainage. Throat without erythema, tonsillar hypertrophy or exudate. Airway patent. NECK: Trachea midline. Non tender CARDIOVASCULAR: Regular rate and rhythm without murmurs, gallops, or rubs. Anterior chest pain to palpation in the right lower anterior lip and lateral ribs. No crepitance or subcu emphysema. No decreased breath sounds, deep breath and palpation clearly elicit some pain. RESPIRATORY: Clear to auscultation. Breath sounds equal bilaterally. No wheezes, rales, or rhonchi. GASTROINTESTINAL: Abdomen soft, non-tender, nondistended. EXTREMITIES: No edema or joint tenderness. BACK: Nontender without deformity or crepitance. No flank tenderness. NEURO: AOx3. SKIN: No rash or erythema of visible areas Initial Vital Signs Initial Vital Signs: Vital Signs Temperature 97.4 F L 09/12/21 17:26 Pulse Rate 54 L 09/12/21 17:26 Respiratory Rate 18 09/12/21 17:26 Blood Pressure 137/60 09/12/21 17:26 Pulse Oximetry 96 09/12/21 17:26 Course Orders Ordered: ED Orders 09/12/21 19:25 XR ribs RT min 3V w CXR1V Stat Discontinued Medications Oxycodone/Acetaminophen (Oxycodone/Acetaminophen 5/325 Tablet) 2 tab PO NOW ONE Stop: 09/12/21 20:14 Last Admin: 09/12/21 20:20 Dose: 2 tab Documented by: [email or web address] Vital Signs Vital signs: Vital Signs - 8 hr 09/12/21 17:26 09/12/21 20:34 Temperature 97.4 F L Pulse Rate 54 L 71 Respiratory Rate 18 16 Blood Pressure 137/60 137/66 Pulse Oximetry 96 97 MDM - Fall Imaging Data Chest x-ray: Radiologist's Impression: Sue Martin??71??F??1950 ? Allergy/Adv: sulfamethoxazole, trimethoprim, adhesive tape (More??) Close Ribs X-Ray (Signed) Kartik Lewis - 09/12/21 Shoulder MRI (Signed) Maico Shah - 06/21/21 Shoulder X-Ray (Signed) Samuel Lemus - 03/07/21 Elbow X-Ray (Signed) Samuel Lemus - 03/07/21 Chest X-Ray (Signed) Samuel Lemus - 02/08/21 Brain MRI (Signed) Sukhjinder Martins - 12/20/20 Carotid Doppler Study (Signed) Samuel Lemus - 08/16/20 Foot X-Ray (Signed) Maico Shah - 07/19/20 Abdomen/Pelvis CT (Signed) Juancho Hathaway - 03/04/20 Shoulder X-Ray (Signed) Maico Shah - 12/28/19 Chest X-Ray (Signed) Henry Mabry - 04/21/19 Shoulder X-Ray (Signed) Samuel Lemus - 12/05/18 Ankle X-Ray (Signed) Samuel Lemus - 12/05/[address] [address] XRay Report Signed Patient: Sue Martin MR#: [id number] : 1950 Acct:[id number] Age/Sex: 71 / F Date of Service: 09/12/21 Loc: ED Accession Number: [id number] ?? Procedure: XR ribs RT min 3V w CXR1V Ordering Provider: Feli Evangelista P.A-C PROCEDURE:? XR RIBS RT MIN 3V W CXR 1V ? INDICATIONS:? fall, right rib pain ? TECHNIQUE:? 2 views of the right ribs were acquired, along with a single view chest.? ? COMPARISON:? [facility], CR, XR RIBS RIGHT WITH PA CHEST, 05/27/2021, 21:37.? [facility], CR, XR SHOULDER RT MIN 2V, 03/07/2021, 21:53. ? FINDINGS:? ? Surgical changes and devices:? Cholecystectomy clips.? ? Bones and chest wall:? Prior T10-T11 vertebroplasty.? Right lateral 10th rib minimally displaced rib fracture.? Remote right 5-7th rib fractures.? No suspicious bony lesions.? Overlying soft tissues appear unremarkable.? ? Lungs and pleura:? No pleural effusions or pneumothorax.? No consolidation.? Prominent interstitial markings.? Prominent lung volumes. ? Mediastinum:? Mediastinal contours appear unchanged.? Heart size is prominent.? ? IMPRESSION:? Right lateral 10th rib fracture. ? Remote right 5-7th rib fractures.? ? Dictated by: Kartik Lewis M.D. on 09/12/2021 at 20:12 ? ? Approved by: Kartik Lewis M.D. on 09/12/2021 at 20:15? Discharge Plan Departure Patient Disposition: Home Clinical Impression: Closed rib fracture Instructions: DI for Rib Fracture Activity Restrictions/Additional Instructions: *You have been diagnosed with [fall with right-sided 10th rib fracture. Your history physical exam are reassuring and as we discussed your x-ray showed a single rib fracture without any obvious evidence of lung injury. *What to do: *Please continue to take your regular medications as directed. [ ] New medication prescriptions sent to your pharmacy: [ [facility]] [ ] New medication written as a paper prescription [ ] No new medications given *Please follow up with your primary care provider in 2-3 days, call for an appointment. Let them know you were seen in the Emergency Department and that we ask that you be seen in follow up. We will electronically transmit a record of today's note if your PCP is in our system *If you do not have a primary care provider please contact the [facility] Resource line at [phone]. They will ask some questions about your medical history and help get you set up with a doctor in the community. *Return to Emergency Department if you should have any new, worsening or concerning symptoms, such as [fever greater than 101 F, shaking chills, worsening pain, persistent vomiting or other bothersome symptoms] Prescriptions: New ketorolac 10 mg tablet 10 mg PO Q6H PRN (Reason: pain) Qty: 14 0RF lidocaine [Lidoderm] 5 % adhesive patch,medicated 1 patch TOP DAILY Qty: 15 0RF Rx Instructions: leave on most painful area for 12 hrs No Action fluoxetine [Prozac] 40 MG capsule 80 1 Qty: 0 0RF meloxicam [Mobic] 7.5 MG tablet Qty: 0 0RF pregabalin [Lyrica] 100 MG capsule 1 Q DAY Qty: 0 0RF esomeprazole magnesium [Nexium] 40 MG capsule,delayed release(DR/EC) 40 mg PO QDAY Qty: 0 0RF levothyroxine [Synthroid] 125 MCG tablet Qty: 0 0RF venlafaxine 50 MG tablet 50 mg PO Qty: 0 0RF rosuvastatin [Crestor] 20 MG tablet Qty: 0 0RF Glucosamine Sulfate (GLUCOSAMINE) Qty: 0 0RF oxycodone [Roxicodone] 5 MG tablet 5 mg PO Q4P Qty: 0 0RF Referrals: Raffi Quiroga MD [Primary Care Provider] -
[2021-09-12] MEDS: OXYCODONE/ACETAMINOPHEN 5/325 TABLET 2 TAB PO (20:20)
[2021-09-12 20:34] VITALS: BP 137/66; PULSE 71; RESP 16; O2SAT 97
== END 2021-09-12 20:35 | disposition home or self-care (01) ==
PROVIDERS: Emergency Provider Emergency Medicine; PCP Family Medicine
DX: S22.41XA Multiple fractures of ribs, right side, initial encounter for closed fracture (principal); W18.39XA Other fall on same level, initial encounter
CPT/HCPCS: 71101; 99283

== ENCOUNTER → 2021-10-17 15:46 | Outpatient (CLI) | payer MEDICARE, BC, SELFPAY ==
--- NOTE | 2021-10-17 | DI.MRI.S_ITS ---
PROCEDURE: MR CERVICAL SPINE WO CON INDICATIONS: Cervicalgia TECHNIQUE: Noncontrast sagittal T1 spin echo and T2 fast spin echo, sagittal STIR, foraminal oblique sagittal T2 fast spin echo, and axial gradient echo or T2 fast spin echo through the cervical spine. COMPARISON: [facility], CT, CT ANGIO HEAD AND NECK, 05/27/2021, 23:40. [facility], CR, XR CERVICAL SPINE WITH OBLIQUES, 10/11/2021, 16:26. [facility], MR, C-SPINE WITHOUT CONTRAST, 02/14/2009, 7:31. FINDINGS: Image quality: This examination is limited by involuntary motion artifact. Alignment and Curvature: There is normal bony alignment. Bone Marrow: Marrow demonstrates normal overall signal. Spinal Cord: Visualized spinal cord has normal size and signal. No cerebellar tonsillar herniation. Paraspinous Soft Tissues: No paravertebral masses. Prevertebral soft tissues are normal in thickness. C2-C3: Moderate loss of disc height is seen. Loss of disc signal is seen. No significant neural foraminal or central canal narrowing can be seen. C3-C4: Moderate loss of disc height is seen. Loss of disc signal is seen. A mild degree of generalized disc osteophyte complex is seen. Moderate facet joint hypertrophy is seen. Moderate bilateral neural foraminal narrowing is seen. No significant central canal narrowing is seen. When comparison is made with the prior images, these findings are similar. C4-C5: Moderate loss of disc height is seen. Loss of disc signal is seen. At least moderate disc osteophyte complex is seen. There is a central disc osteophyte protrusion seen. Moderate to prominent facet hypertrophy is seen. There is at least moderate bilateral neural foraminal narrowing seen. Moderate central canal narrowing is seen. There is associated mass effect upon the ventral spinal cord. These imaging findings have progressed compared to 2009. C5-C6: At least moderate loss of disc height and disc signal can be seen. At least moderate disc osteophyte complex is seen, which is eccentric to the right. At least moderate facet hypertrophy is seen. There is moderate to severe bilateral neural foraminal narrowing seen, right worse than left. Moderate central canal narrowing is seen. These degenerative changes are worse than in 2009. C6-C7: Moderate loss of disc height is seen. Loss of disc signal is seen. Moderate generalized disc osteophyte complex is seen. Moderate facet joint hypertrophy is seen. There is at least moderate bilateral neural foraminal narrowing seen. Mild central canal narrowing is seen. These degenerative changes are mildly progressed compared to 2009. C7-T1: Moderate loss of disc height is seen. Loss of disc signal is seen. A mild degree of generalized disc osteophyte complex is seen. No significant neural foraminal or central canal narrowing can be seen. When comparison is made with the prior images, these findings are similar. IMPRESSION: Multiple levels of cervical spine degenerative change are seen, which are worst inferiorly and have progressed compared to 2009. Dictated by: Warren Rowe M.D. on 10/17/2021 at 16:19 Approved by: Warren Rowe M.D. on 10/17/2021 at 16:25
== END ==
PROVIDERS: PCP Family Medicine; Referring Provider Physical Medicine & Rehabilitation Pain Medicine; Visit Provider Physical Medicine & Rehabilitation Pain Medicine
DX: M47.812 Spondylosis without myelopathy or radiculopathy, cervical region (principal); M54.2 Cervicalgia
CPT/HCPCS: 72141

== ENCOUNTER → 2022-01-11 12:26 | Outpatient (CLI) | payer MEDICARE, BC, SELFPAY ==
--- NOTE | 2022-01-11 | DI.ECHO.S_ITS ---
[facility] +---------+ : : [address] [place] : : : : [id number] : : : : Phone: [phone] Echocardiogram Report + + :Name: JANE SALAZAR Study Date: 01/11/2022 Height: 58 in : :[facility] ReadingLocation: Weight: 107 lb : : Gender: Female BSA: 1.4 m2 : :: 1950 Age: 71 yrs BP: 153/64 mmHg: :Reason For Study: CAD : :Ordering Physician: LANCE, : :RONALD Rayo Performed By: Saqib Dhillon : :Referring: RONALD LUCAS : + + Interpretation Summary The left ventricle is normal in size. There is mild-moderate concentric left ventricular hypertrophy. The ejection fraction is estimated to be 60-65%. Diastolic parameters suggest a pseudonormalization pattern, consistent with probable elevated filling pressures. The right ventricle is normal in size and function. There is moderate aortic regurgitation. There is mild to moderate mitral regurgitation. There is mild tricuspid regurgitation. The right ventricular systolic pressure is estimated to be at least 39 mmHg based on an estimated right atrial pressure of 3 mm Hg. The ascending aorta is severely enlarged. asc Aorta Diam: 6.0 cm BP: 153/[address] surgery evaluation. Consider blood pressure less than 130/80 mmHg. Procedure: A two-dimensional transthoracic echocardiogram with color flow and Doppler was performed. The study quality was technically adequate. There is no prior echocardiogram noted for this patient. The patient was in sinus bradycardia with heart rates between 50-60 bpm during the exam. Left Ventricle: The left ventricle is normal in size. There is mild-moderate concentric left ventricular hypertrophy. The left ventricular apex is not well visualized. Left ventricular systolic function is normal. The ejection fraction is estimated to be 60-65%. There are no focal wall motion abnormalities. Diastolic parameters suggest a pseudonormalization pattern, consistent with probable elevated filling pressures. Right Ventricle: The right ventricle is normal in size and function. Atria: The left atrium is moderately dilated. Right atrial size is normal. The interatrial septum grossly appears intact with no obvious evidence for an atrial septal defect. Mitral Valve: There is mild mitral annular calcification. There is mild to moderate mitral regurgitation. Aortic Valve: The aortic valve is trileaflet. The aortic valve opens well. There is no aortic valve stenosis. There is moderate aortic regurgitation. Tricuspid Valve: The tricuspid valve is normal in structure and function. There is mild tricuspid regurgitation. The right ventricular systolic pressure is estimated to be at least 39 mmHg based on an estimated right atrial pressure of 3 mm Hg. Pulmonic Valve: The pulmonic valve is not well seen, but is grossly normal. There is no pulmonic valvular regurgitation. Great Vessels: The aortic root is normal size. The ascending aorta is severely enlarged. asc Aorta Diam: 6.0 cm. The IVC is of normal diameter and collapses greater than 50% with a sniff. This suggests a low right atrial pressure of 3 mm Hg. Pericardium/ Pleura There is no pericardial effusion. There is no pleural effusion. MMode/2D Measurements & Calculations LVIDd: 4.4 cm LVOT diam: 1.9 cm LVIDs: 3.1 cm Ao root diam: 3.2 cm FS: 29.5 % asc Aorta Diam: 6.0 cm IVSd: 1.4 cm LVPWd: 1.4 cm LV sargent. diameter/BSA (cm/m^2): 3.2 LV sys. diameter/BSA (cm/m^2): 2.2 LA dimension: 3.5 cm RA long axis: 5.1 cm LA A2 area: 18.3 cm2 LA A4 area: 20.0 cm2 LA length (vol): 5.1 cm LA vol: 60.6 ml LA vol index: 43.4 ml/m2 TAPSE_phl: 1.9 cm Doppler Measurements & Calculations Ao V2 max: 172.0 cm/sec LVOT Max Anirudh: 116.0 cm/sec Ao V2 mean: 120.0 cm/sec LV V1 max P.4 mmHg Ao max P.0 mmHg LV V1 VTI: 28.0 cm Ao mean P.0 mmHg VIVI(I,D): 1.8 cm2 Ao V2 VTI: 45.3 cm VIVI(V,D): 1.9 cm2 sev ratio: 0.62 VIVI indexed to BSA (cm^2/m^2): 1.3 AI P1/2t: 417.7 msec AI dec slope: 307.5 cm/sec2 MV E max anirudh: 86.3 cm/sec TR max anirudh: 300.0 cm/sec MV A max anirudh: 56.3 cm/sec TR max P.0 mmHg MV E/A: 1.5 Med Peak E' Anirudh: 4.3 cm/sec E/E' med: 20.3 Lat Peak E' Anirudh: 7.5 cm/sec E/E' lat: 11.4 E/e' average: 15.9 MV dec time: 0.21 sec SV(LVOT): 79.4 ml AV P1/2t-pr_phl: 431.5 msec AV VR_phl: 0.67 VIVI(VTI)/BSA_phl: 1.3 MV P1/2t-pr_phl: 60.0 msec Reading Physician:03:12 PM
== END ==
PROVIDERS: PCP Family Medicine; Referring Provider Family Medicine; Visit Provider Family Medicine
DX: I65.29 Occlusion and stenosis of unspecified carotid artery (principal); I08.3 Combined rheumatic disorders of mitral, aortic and tricuspid valves; I77.89 Other specified disorders of arteries and arterioles
CPT/HCPCS: 93306

== ENCOUNTER 2022-04-25 14:58 | Emergency (ER) | payer MEDICARE, BC, SELFPAY ==
[2022-04-25 15:13] VITALS: BP 116/56; PULSE 59; RESP 16; TEMP 37.4; O2SAT 93; BMI 21.3
[2022-04-25 15:35] LABS: COVID19 -Nasal RAPID POSITIVE (Negative)
--- NOTE | 2022-04-25 16:44 | DI.RAD.S_ITS ---
PROCEDURE: XR CHEST 2V INDICATIONS: covid+, diminished RLL TECHNIQUE: 2 views of the chest were acquired. COMPARISON: [facility], CR, XR CHEST 2V, 02/08/2021, 10:56. FINDINGS: Surgical changes and devices: Stable vertebral plasty changes are noted in the lower thoracic spine. Surgical clips seen in the right upper quadrant. Lungs and pleura: Lungs are mildly hyperexpanded and clear. No pleural effusions or pneumothorax. Mediastinum: Stable cardiomediastinal contours with enlargement of the cardiac silhouette. Bones and chest wall: No suspicious bony abnormalities. Soft tissues appear unremarkable. Old healed fractures are seen in the posterior right upper ribs. IMPRESSION: No acute cardiopulmonary abnormality. Dictated by: Frankie Mcmillan M.D. on 04/25/2022 at 17:25 Approved by: Frankie Mcmillan M.D. on 04/25/2022 at 17:28
--- NOTE | 2022-04-25 16:45 | ED_ITS ---
HPI - URI/Sore Throat General Chief Complaint: Upper Respiratory Symptoms Stated Complaint: fever, flu like symptoms Time Seen by Provider: 04/25/22 16:36 Source: patient Mode of arrival: Ambulatory History of Present Illness HPI Narrative: This is a 71-year-old female with history of fibromyalgia who is COVID vaccinated x3, presents to the emergency department complaining of 4 days of chills, shortness of breath, cough, sore throat, muscle aches, congestion. She denies any wheezing, chest pain, weakness, dysuria, altered mentation. She has not been taking any medications for her symptoms, states that she only takes her regularly scheduled medications. Her primary care provider is at [facility] she denies any nausea, vomiting, diarrhea. She lives in [place]. Related Data Home Medications Medication Instructions Recorded Confirmed Glucosamine Sulfate (GLUCOSAMINE) ##0 03/06/13 esomeprazole magnesium 40 mg 40 mg PO QDAY ##0 03/06/13 capsule,delayed release (Nexium) fluoxetine 40 mg capsule (Prozac) 80 1 ##0 03/06/13 levothyroxine 125 mcg tablet ##0 03/06/13 (Synthroid) meloxicam 7.5 mg tablet (Mobic) ##0 03/06/13 oxycodone 5 mg tablet (Roxicodone) 5 mg PO Q4P ##0 03/06/13 pregabalin 100 mg capsule (Lyrica) 1 Q DAY ##0 03/06/13 rosuvastatin 20 mg tablet (Crestor) ##0 03/06/13 venlafaxine 50 mg tablet 50 mg PO ##0 03/06/13 Previous Rx's Medication Instructions Recorded ketorolac 10 mg tablet 10 mg PO Q6H PRN pain #14 tabs 09/12/21 lidocaine 5 % topical patch 1 patch topical DAILY #15 ea 09/12/21 (Lidoderm) desloratadine 5 mg tablet 5 mg PO BID PRN nasal congestion 04/25/22 (Clarinex) #20 tabs guaifenesin 600 mg tablet, 600 mg PO BID #20 tabs 04/25/22 extended release 12 hr (Mucinex) methocarbamol 500 mg tablet 500 mg PO TID PRN muscle aches #14 04/25/22 tabs nirmatrelvir 300 mg (150 mg See Rx Instructions PO .COMPLEX 10/05/22 x2)-ritonavir 100 mg tablet,dose #30 ea pack(EUA) (Paxlovid) Allergies Allergy/AdvReac Type Severity Reaction Status Date / Time sulfamethoxazole Allergy Verified 04/25/22 15:14 [From ] trimethoprim [From ] Allergy Verified 04/25/22 15:14 adhesive tape AdvReac Verified 04/25/22 15:14 Review of Systems Review of Systems Narrative: Review of systems is negative for acute abnormalities unless otherwise noted in HPI Patient History Medical History Fibromyalgia Hypertension Hypothyroidism Restrictive lung disease Surgical History No pertinent past surgical history Social History Smoking Status: Former smoker substance use type: does not use Smoking Status: Former smoker alcohol intake frequency: 0-2 drinks per day Substance Use Type: marijuana Exam Narrative Exam Narrative: Reviewed vitals signs and nursing notes. General: cooperative, comfortable, in no acute distress, well groomed HEENT: symmetrical facial expressions, moist mucous membranes Cardiovascular: regular rate and rhythm, no peripheral edema, warm extremities Respiratory: normal effort, able to speak in complete sentences, without w heezing, stridor, or abnormal breath sounds. Diminished breath sounds in her right lower lobe, tachypnea, without crackles, wheezing, or other abnormal breath sounds. GI: abdomen soft, nontender to palpation, nondistended, without masses, rebound tenderness or exquisite tenderness with exam. MSK: moves all extremities, neurovascularly intact, no weakness, normal tone Skin: brisk capillary refill, without pallor or erythema Neuro: normal speech and cognition, A&O x3, ambulatory, clear speech Psych: mental status is grossly normal, congruent mood, normal affect, pleasant and cooperative Initial Vital Signs Initial Vital Signs: Vital Signs Temperature 99.3 F 04/25/22 15:13 Pulse Rate 59 L 04/25/22 15:13 Respiratory Rate 16 04/25/22 15:13 Blood Pressure 116/56 L 04/25/22 15:13 Pulse Oximetry 93 04/25/22 15:13 Oxygen Delivery Method 04/25/22 15:13 Course Orders Ordered: ED Orders 04/25/22 15:26 COVID19 -Nasal RAPID/Pre-Proc Stat 04/25/22 16:44 Chest [XR chest 2V] Stat 04/25/22 17:23 Throat Culture Stat Vital Signs Vital signs: Vital Signs - 8 hr 04/25/22 15:13 Temperature 99.3 F Pulse Rate 59 L Respiratory Rate 16 Blood Pressure 116/56 L Pulse Oximetry 93 Oxygen Delivery Method Room Air MDM - URI/Sore Throat Lab Data Labs: Lab Results 04/25/22 Range/Units 15:26 SARS-CoV-2 (PCR) Positive H (Negative) Point of Care Testing Rapid Strep A Negative Imaging Data Chest x-ray: Radiologist's Impression: PROCEDURE:? XR CHEST 2V ? INDICATIONS:? covid+, diminished RLL ? TECHNIQUE:? 2 views of the chest were acquired.? ? COMPARISON:? [facility], , XR CHEST 2V, 02/08/2021, 10:56. ? FINDINGS:? ? Surgical changes and devices:? Stable vertebral plasty changes are noted in the lower thoracic spine.? Surgical clips seen in the right upper quadrant. ? Lungs and pleura:? Lungs are mildly hyperexpanded and clear.? No pleural effusions or pneumothorax.? ? Mediastinum:? Stable cardiomediastinal contours with enlargement of the cardiac silhouette. ? Bones and chest wall:? No suspicious bony abnormalities.? Soft tissues appear unremarkable.? Old healed fractures are seen in the posterior right upper ribs. ? IMPRESSION:? No acute cardiopulmonary abnormality. ? ? Dictated by: Frankie Mcmillan M.D. on 04/25/2022 at 17:25 ? ? Approved by: Frankie Mcmillan M.D. on 04/25/2022 at 17:28 ? [facility] Narrative Medical decision making narrative: COVID (+) on day [4] of symptoms without hypoxia, respiratory distress, dehydration, or focal exam to suggest secondary bacterial infection. Discussed CDC guidelines for quarantine, mask wearing, physical distancing, and infection prevention measures such as frequent handwashing. Discussed supportive treatments: Tylenol/Motrin as needed for pain/fever. Prescribed Paxlovid for COVID infection due to her comorbidities, she has a history of taking rosuv astatin for hyperlipidemia but states that she is not, I told her that she can not take it with this medication and she understands. I encouraged her to come back to the hospital if she has any severe shortness of breath, worsening, chest pain, or other complication. OTC decongestant medications and/or antihistamines for symptomatic relief. Maintain adequate fluid intake. Follow- up with PCP as directed. Return to clinic/ER instructions discussed for new, not improving, or worsening symptoms. All questions answered. Discharge Plan Departure Patient Disposition: Home Clinical Impression: COVID-19 Instructions: COVID-19 Activity Restrictions/Additional Instructions: *You have been diagnosed with COVID-19. I am sorry that you are ill, please use Zyrtec at night to help manage your congestion, Mucinex as needed for productive cough, Tylenol and ibuprofen as needed for fever, please take this medication morning and night for the next 5 days. Please follow-up with your primary care provider for any worsening of your symptoms. This will hopefully prevent you from needing admission to the hospital from severe COVID illness. Stay hydrated, use ibuprofen for the muscle aches or other pain medication that your scheduled. I have sent medications to your pharmacy, they may not cover the things [id number], hopefully they will, if not, brass pickler the Paxlovid to help keep you out of the hospital and getting better sooner, take ibuprofen and Tylenol as needed for your symptoms along with your other medications which can be helpful, any allergy medications that you have at home should suffice. Come back to the emergency department if you have worsening of your symptoms, it does not appear that you have any pneumonia on your chest x-ray today. I encourage you to follow-up with a primary care provider as able. *What to do: *Please continue to take your regular medications as directed. [x ] New medication prescriptions sent to your pharmacy: [ [facility]] [ ] New medication written as a paper prescription [ ] No new medications given *Please follow up with your primary care provider in 2-3 days, call for an appointment. Let them know you were seen in the Emergency Department and that we asked that you be seen for follow-up. We will electronically transmit a record of today's note if your PCP is in our system *If you do not have a primary care provider please contact [phone] to establish care with one of the [facility] primary care providers. *Return to Emergency Department if you should have any new, worsening, or concerning symptoms, such as [fever greater than 101F, chills, worsening pain, persistent vomiting or other bothersome symptoms]. Prescriptions: New Paxlovid (EUA) 300 mg (150 mg x 2)-100 mg tablets,dose pack See Rx Instructions .ROUTE .COMPLEX Qty: 30 0RF Rx Instructions: take TWO 150 mg tablets of nirmatrelvir with ONE 100 mg tablet of ritonavir twice daily for 5 days desloratadine [Clarinex] 5 mg tablet 5 mg PO BID PRN (Reason: nasal congestion) Qty: 20 0RF guaifenesin [Mucinex] 600 mg tablet extended release 12hr 600 mg PO BID Qty: 20 0RF methocarbamol 500 mg tablet 500 mg PO TID PRN (Reason: muscle aches) Qty: 14 0RF No Action fluoxetine [Prozac] 40 MG capsule 80 1 Qty: 0 meloxicam [Mobic] 7.5 MG tablet Qty: 0 pregabalin [Lyrica] 100 MG capsule 1 Q DAY Qty: 0 esomeprazole magnesium [Nexium] 40 MG capsule,delayed release(DR/EC) 40 mg PO QDAY Qty: 0 levothyroxine [Synthroid] 125 MCG tablet Qty: 0 venlafaxine 50 MG tablet 50 mg PO Qty: 0 rosuvastatin [Crestor] 20 MG tablet Qty: 0 Glucosamine Sulfate (GLUCOSAMINE) Qty: 0 oxycodone [Roxicodone] 5 MG tablet 5 mg PO Q4P Qty: 0 ketorolac 10 mg tablet 10 mg PO Q6H PRN (Reason: pain) Qty: 14 0RF lidocaine [Lidoderm] 5 % adhesive patch,medicated 1 patch TOP DAILY Qty: 15 0RF Rx Instructions: leave on most painful area for 12 hrs Referrals: Raffi Quiroga MD [Primary Care Provider] - Visit Report Forms: Patient Portal/API
== END 2022-04-25 17:43 | disposition home or self-care (01) ==
PROVIDERS: Emergency Medicine; Emergency Provider Nurse Practitioner Critical Care Medicine; PCP Family Medicine; Referring Provider Family Medicine
DX: U07.1 COVID-19 (principal)
CPT/HCPCS: 71046; 87070; 87635; 87880; 99282; 99283; C9803

== ENCOUNTER 2022-06-28 15:26 | Inpatient (IN) | payer MEDICARE, BC, SELFPAY ==
[2022-06-28] VITALS (37 sets, daily range): BP systolic 67–113; BP diastolic 41–55; PULSE 59–69; RESP 12–62; TEMP 36.6–36.9; O2SAT 82–99; BMI 28.3
--- NOTE | 2022-06-28 16:04 | DI.RAD.S_ITS ---
PROCEDURE: XR HIP W PEL IF DONE LT 2V INDICATIONS: fall pain TECHNIQUE: AP pelvis with lateral view(s) of the left hip(s). COMPARISON: [facility], , HIP 2V LEFT, 01/01/2008, 12:14. FINDINGS: Bones: Acute fracture through subcapital region of left femoral neck is seen with superior migration of left proximal femur in relation to femoral head. Bilateral hip joint osteoarthritic changes are noted. No evidence of avascular necrosis of femoral head.. Pelvic ring appears intact. No suspicious bony lesions. Soft tissues: The visualized bowel gas pattern is normal. No suspicious soft tissue calcifications. IMPRESSION: Acute displaced left femoral neck fracture as above. Dictated by: Samuel Lemus M.D. on 06/28/2022 at 16:50 Approved by: Samuel Lemus M.D. on 06/28/2022 at 16:50
--- NOTE | 2022-06-28 16:05 | ED_ITS ---
HPI - Fall General Chief Complaint: Trauma Stated Complaint: hip pain Time Seen by Provider: 06/28/22 16:03 History of Present Illness HPI Narrative: Blood pressure and O2 saturation noted by triage notes. Patient denies any dyspnea or chest pain. Denies any dizziness. No black or bloody stools recently. Patient states she got tangled up with the Sherri walking her dog today and she fell onto her left hip. On complains of left hip pain. Denies any other injury or pain. She is not on any blood thinners. She did recently stay at hospital last month for a heart attack she states. No surgeries were done. She was at [facility]. Patient states she is not eaten or drank very much today. Has felt tired and weak though. Again denies any chest pain or dyspnea or palpitations. Patient placed in bed. Pants shoes socks removed and placed in a gown. Left leg is slightly shortened and externally rotated. Diagnosed with pulmonary fibrosis when she was 25 years old Related Data Home Medications Medication Instructions Recorded Confirmed Glucosamine Sulfate (GLUCOSAMINE) ##0 03/06/13 esomeprazole magnesium 40 mg 40 mg PO QDAY ##0 03/06/13 capsule,delayed release (Nexium) fluoxetine 40 mg capsule (Prozac) 80 1 ##0 03/06/13 levothyroxine 125 mcg tablet ##0 03/06/13 (Synthroid) meloxicam 7.5 mg tablet (Mobic) ##0 03/06/13 oxycodone 5 mg tablet (Roxicodone) 5 mg PO Q4P ##0 03/06/13 pregabalin 100 mg capsule (Lyrica) 1 Q DAY ##0 03/06/13 rosuvastatin 20 mg tablet (Crestor) ##0 03/06/13 venlafaxine 50 mg tablet 50 mg PO ##0 03/06/13 Previous Rx's Medication Instructions Recorded ketorolac 10 mg tablet 10 mg PO Q6H PRN pain #14 tabs 09/12/21 lidocaine 5 % topical patch 1 patch topical DAILY #15 ea 09/12/21 (Lidoderm) desloratadine 5 mg tablet 5 mg PO BID PRN nasal congestion 04/25/22 (Clarinex) #20 tabs guaifenesin 600 mg tablet, 600 mg PO BID #20 tabs 04/25/22 extended release 12 hr (Mucinex) methocarbamol 500 mg tablet 500 mg PO TID PRN muscle aches #14 04/25/22 tabs nirmatrelvir 300 mg (150 mg See Rx Instructions PO .COMPLEX 04/25/22 x2)-ritonavir 100 mg tablet,dose #30 ea pack(EUA) (Paxlovid) Allergies Allergy/AdvReac Type Severity Reaction Status Date / Time sulfamethoxazole Allergy Verified 06/28/22 16:34 [From ] trimethoprim [From ] Allergy Verified 06/28/22 16:34 adhesive tape AdvReac Verified 06/28/22 16:34 Review of Systems Review of Systems Narrative: GENERAL: negative chills, positive fatigue, malaise, negative fever, sweats. HEENT: negative sinus pain, ear pain, sore throat RESPIRATORY: negative dyspnea, cough CARDIOVASCULAR: negative chest pain, palpitations GASTROINTESTINAL: negative nausea, vomiting, abdominal pain : negative dysuria, frequency, hematuria MUSCULOSKELETAL: Positive muscle or bony pain SKIN: negative rash, skin lesions NEUROLOGIC: negative weakness, numbness ROS Unobtainable: All systems reviewed & are unremarkable except as noted in HPI and below Patient History Medical History Fibromyalgia Hypertension Hypothyroidism Restrictive lung disease Surgical History No pertinent past surgical history Social History Smoking Status: Former smoker substance use type: does not use Smoking Status: Former smoker alcohol intake frequency: 0-2 drinks per day Substance Use Type: marijuana Exam Narrative Exam Narrative: GENERAL: in no distress, not toxic not dyspneic HEAD: Normocephalic. EYES: Pupils equal round No scleral icterus. ENT: Mucous membranes moist. NECK: Trachea midline. CARDIOVASCULAR: Regular rate and rhythm without murmurs RESPIRATORY: Clear to auscultation. Breath sounds equal bilaterally. No wheezes, rales, or rhonchi. GASTROINTESTINAL: Abdomen soft, non-tender EXTREMITIES: Tenderness to the left hip. There is shortening slightly of the left leg and external rotation of the foot. Foot is warm soft and pink with strong pedal pulse with light touch intact to foot and toes. Nontender ankle and knee. Very painful with passive or active attempt of moving the left hip. Able to extend the left knee fully. BACK: No flank tenderness. NEURO: AOx4. SKIN: Warm and dry PSYCH: Not anxious, is cooperative Initial Vital Signs Initial Vital Signs: Vital Signs Temperature 98.4 F 06/28/22 15:47 Pulse Rate 64 06/28/22 15:47 Respiratory Rate 18 06/28/22 15:47 Blood Pressure 67/41 L 06/28/22 15:47 Pulse Oximetry 84 L 06/28/22 15:47 Oxygen Delivery Method 06/28/22 15:47 Course Course Course Narrative: No new issues during course of stay Decision to Admit Date: 06/28/22 Decision to Admit time: 16:08 Orders Ordered: ED Orders 06/28/22 16:04 XR hip w pel if done LT 2V Stat EKG-12 Lead Stat 06/28/22 16:12 Complete Blood Count AUTO DIFF Stat Comprehensive Metabolic Panel Stat Ethanol (ETOH) Stat Magnesium Urgent Partial Thromboplastin Time Stat Prothrombin Time INR Stat Troponin & CK Cardiac Panel Stat 06/28/22 16:42 XR chest 1V Stat 06/28/22 16:54 COVID19 -Nasal RAPID/Pre-Proc Stat 06/28/22 17:03 Consult to Orthopedic Surgery Stat 06/28/22 17:07 Consult to Discharge Planning Routine Urine Drug Screen, Rapid Stat 06/29/22 05:00 BMP [Basic Metabolic Panel] DAILY CBC Auto Diff [Complete Blood Count AUTO DIFF] DAILY 06/30/22 05:00 BMP [Basic Metabolic Panel] DAILY CBC Auto Diff [Complete Blood Count AUTO DIFF] DAILY 07/01/22 05:00 BMP [Basic Metabolic Panel] DAILY CBC Auto Diff [Complete Blood Count AUTO DIFF] DAILY Acetaminophen (Acetaminophen 325 Mg Tablet) 650 mg PO Q6H PRN PRN Reason: Fever/Mild Pain (1-3) Hydromorphone HCl (Hydromorphone 0.5 Mg Inj) 0.5 mg IV Q4H PRN PRN Reason: Pain, Moderate (4-6) Melatonin (Melatonin 3 Mg Tablet) 6 mg PO BEDTIME PRN PRN Reason: Insomnia Naloxone HCl (Naloxone 0.4 Mg/Ml Vial) 0.2 mg IV Q2MIN PRN PRN Reason: Opiate Reversal Oxycodone HCl (Oxycodone Ir 5 Mg Tablet) 5 mg PO Q4HR PRN PRN Reason: Pain, Moderate (4-6) Polyethylene Glycol (Polyethylene Glycol 3350 17 Gm Powd.Pack) 17 gm PO DAILY PRN PRN Reason: Constipation Sennosides (Sennosides 8.6 Mg Tablet) 8.6 mg PO BID PRN PRN Reason: Constipation Discontinued Medications Furosemide (Furosemide 20 Mg/2 Ml Vial) 20 mg IV NOW ONE Stop: 06/28/22 17:09 Last Admin: 06/28/22 18:04 Dose: 20 mg Documented By: YULIA Sodium Chloride (Normal Saline 0.9%) 1,000 mls @ 1,000 mls/hr IV BOLUS ONE Stop: 06/28/22 17:02 Last Infusion: 06/28/22 16:33 Dose: 0 mls/hr Documented By: Admin: 06/28/22 16:10 Dose: 1,000 mls/hr Documented By: MERARY Reevaluation(s) Reevaluation #1: Updated patient results and will need surgery. She understands. Time: 17:19 Consultations Consultation #1: Spoke with orthopedics, dr lugo, will need to do surgery on the hip. Hospitalist to admit Time: 16:45 Consultation #2: Spoke with hospitalist, Dr. Vega, he will admit, however patient will need cardiac clearance and echocardiogram. Time: 16:50 Vital Signs Vital signs: Vital Signs - 8 hr 06/28/22 15:47 06/28/22 15:59 06/28/22 16:00 Temperature 98.4 F Pulse Rate 64 66 Respiratory Rate 18 22 Blood Pressure 67/41 L 91/47 L Pulse Oximetry 84 L 82 L Oxygen Delivery Method Room Air Oxygen Flow Rate 06/28/22 16:00 06/28/22 16:04 06/28/22 16:04 Temperature Pulse Rate 64 65 Respiratory Rate 26 H 35 H Blood Pressure 94/48 L Pulse Oximetry 86 L 82 L Oxygen Delivery Method Oxygen Flow Rate 06/28/22 16:05 06/28/22 16:05 06/28/22 16:10 Temperature Pulse Rate 65 59 L Respiratory Rate 39 H 31 H Blood Pressure 98/48 L Pulse Oximetry 84 L 94 Oxygen Delivery Method Nasal Cannula Oxygen Flow Rate 2 06/28/22 16:15 06/28/22 16:17 06/28/22 16:17 Temperature Pulse Rate 59 L 59 L Respiratory Rate 36 H 39 H Blood Pressure 91/45 L Pulse Oximetry 97 95 Oxygen Delivery Method Nasal Cannula Nasal Cannula Nasal Cannula Oxygen Flow Rate 2 2 2 06/28/22 16:20 06/28/22 16:20 06/28/22 16:25 Temperature Pulse Rate 59 L Respiratory Rate 21 Blood Pressure 90/44 L 97/49 L Pulse Oximetry 94 Oxygen Delivery Method Nasal Cannula Nasal Cannula Nasal Cannula Oxygen Flow Rate 2 2 2 06/28/22 16:25 06/28/22 16:29 06/28/22 16:30 Temperature Pulse Rate 60 59 L Respiratory Rate 33 H 27 H Blood Pressure 108/55 L Pulse Oximetry 92 88 L Oxygen Delivery Method Nasal Cannula Nasal Cannula Nasal Cannula Oxygen Flow Rate 2 2 2 MDM - Fall Differential Diagnosis Differential diagnosis: Likely other (Hip contusion hip fracture hip dislocation/dehydration) Lab Data Result diagrams: 06/28/22 16:12 06/28/22 16:12 Labs: Lab Results 06/28/22 06/28/22 06/28/22 Range/Units 16:12 16:12 16:12 WBC 10.4 (4.5-11.0) X10^3/uL RBC 3.95 L (4.0-5.2) X10^6/uL Hgb 11.5 L (12.0-16.0) g/dL Hct 34.5 L (36-46) % MCV 87.4 (80-100) fL MCH 29.0 (26-34) PG MCHC 33.2 (30-36) % RDW 14.3 (11.6-14.8) % Plt Count 290 (150-400) X10^3/uL Neut % (Auto) 70.1 (50-75) % Lymph % (Auto) 19.6 L (25-40) % Elmore % (Auto) 7.6 (3-14) % Eos % (Auto) 1.9 L (2-4) % Baso % (Auto) 0.8 (0-2) % Neut # (Auto) 7300 H (3546-3850) /uL Lymph # (Auto) 2000 (5907-7385) /uL Elmore # (Auto) 800 (0-900) /uL Eos # (Auto) 200 (0-450) /uL Baso # (Auto) 100 (0-100) /uL PT 14.2 H (10.1-12.7) SECONDS INR 1.2 (0.9-1.3) APTT 36 (26-36) SECONDS Sodium 135 L (137-145) mmol/L Potassium 3.7 (3.4-5.1) mmol/L Chloride 101 (98-107) mmol/L Carbon Dioxide 26 (22-32) mmol/L BUN 25 H (7-17) mg/dL Creatinine 1.00 (0.52-1.04) mg/dL Estimated GFR > 60 (>60) mL/min BUN/Creatinine Ratio 25.0 H (6-22) Glucose 115 H (80-110) mg/dL Calcium 8.8 (8.4-10.2) mg/dL Magnesium (1.6-2.3) mg/dL Total Bilirubin 0.7 (0.2-1.3) mg/dL AST 32 (14-36) IU/L ALT 30 (<35) IU/L Alkaline Phosphatase 88 (38-126) U/L Total Creatine Kinase 88 (30-135) U/L CK-MB (CK-2) TNP CK-MB (CK-2) Rel Index TNP Troponin I 0.050 H (0.01-0.034) ng/mL Total Protein 6.2 L (6.3-8.2) g/dL Albumin 3.7 (3.5-5.0) g/dL Globulin 2.5 (1.7-4.1) g/dL Albumin/Globulin Ratio 1.5 (1.0-2.8) Ethyl Alcohol < 10 ( - 10) mg/dL SARS-CoV-2 (PCR) (Negative) 06/28/22 06/28/22 Range/Units 16:12 16:54 WBC (4.5-11.0) X10^3/uL RBC (4.0-5.2) X10^6/uL Hgb (12.0-16.0) g/dL Hct (36-46) % MCV (80-100) fL MCH (26-34) PG MCHC (30-36) % RDW (11.6-14.8) % Plt Count (150-400) X10^3/uL Neut % (Auto) (50-75) % Lymph % (Auto) (25-40) % Elmore % (Auto) (3-14) % Eos % (Auto) (2-4) % Baso % (Auto) (0-2) % Neut # (Auto) (6125-8632) /uL Lymph # (Auto) (7104-7062) /uL Elmore # (Auto) (0-900) /uL Eos # (Auto) (0-450) /uL Baso # (Auto) (0-100) /uL PT (10.1-12.7) SECONDS INR (0.9-1.3) APTT (26-36) SECONDS Sodium (137-145) mmol/L Potassium (3.4-5.1) mmol/L Chloride (98-107) mmol/L Carbon Dioxide (22-32) mmol/L BUN (7-17) mg/dL Creatinine (0.52-1.04) mg/dL Estimated GFR (>60) mL/min BUN/Creatinine Ratio (6-22) Glucose (80-110) mg/dL Calcium (8.4-10.2) mg/dL Magnesium 1.9 (1.6-2.3) mg/dL Total Bilirubin (0.2-1.3) mg/dL AST (14-36) IU/L ALT (<35) IU/L Alkaline Phosphatase (38-126) U/L Total Creatine Kinase (30-135) U/L CK-MB (CK-2) CK-MB (CK-2) Rel Index Troponin I (0.01-0.034) ng/mL Total Protein (6.3-8.2) g/dL Albumin (3.5-5.0) g/dL Globulin (1.7-4.1) g/dL Albumin/Globulin Ratio (1.0-2.8) Ethyl Alcohol ( - 10) mg/dL SARS-CoV-2 (PCR) Negative (Negative) Imaging Data Chest x-ray: Radiologist's Impression: [address] [address] XRay Report Signed Patient: Sue Martin MR#: [id number] : 1950 Acct:[id number] Age/Sex: 72 / F Date of Service: 06/28/22 Loc: ED Accession Number: [id number] ?? Procedure: XR chest 1V Ordering Provider: Jn Ramírez MD PROCEDURE:? XR CHEST 1V ? INDICATIONS:? HIP PAIN AFTER FALL ? TECHNIQUE:? One view of the chest was acquired.? ? COMPARISON:? [facility], XR CHEST 2V, 04/25/2022, 17:05. ? FINDINGS:? ? Surgical changes and devices:? Surgical clips are seen in right hilar region.? There is prior lower thoracic spine vertebral body kyphoplasty. ? Lungs and pleura:? Mild pulmonary vascular congestion is seen.? No definite focal infiltrate.? No pleural effusions or pneumothorax.? ? Mediastinum:? Mediastinal contours appear normal.? Heart size is enlarged.? ? Bones and chest wall:? No suspicious bony lesions.? Overlying soft tissues ap pear unremarkable.? ? IMPRESSION:? Cardiomegaly and mild congestion.? No focal infiltrate or pneumot horax. ? ? Dictated by: Samuel Lemus M.D. on 06/28/2022 at 16:50 ? ? Approved by: Samuel Lemus M.D. on 06/28/2022 at 16:51 ? Extremity x-ray #1: Radiologist's Impression: [place] [address] XRay Report Signed Patient: Sue Martin MR#: [id number] : 1950 Acct:[id number] Age/Sex: 72 / F Date of Service: 06/28/22 Loc: ED Accession Number: [id number] ?? Procedure: XR hip w pel if done LT 2V Ordering Provider: Jn Ramírez MD PROCEDURE:? XR HIP W PEL IF DONE LT 2V ? INDICATIONS:? fall pain ? TECHNIQUE:? AP pelvis with lateral view(s) of the left hip(s).? ? COMPARISON:? [facility], HIP 2V LEFT, 01/01/2008, 12:14. ? FINDINGS:? ? Bones:? Acute fracture through subcapital region of left femoral neck is seen with superior migration of left proximal femur in relation to femoral head.? Bilateral hip joint osteoarthritic changes are noted.? No evidence of avascular necrosis of fe moral head..? Pelvic ring appears intact.? No suspicious bony lesions.? ? Soft tissues:? The visualized bowel gas pattern is normal.? No suspicious soft tissue calcifications.? ? ? IMPRESSION:? Acute displaced left femoral neck fracture as above.? ? Dictated by: Samuel Lemus M.D. on 06/28/2022 at 16:50 ? ? Approved by: Samuel Lemus M.D. on 06/28/2022 at 16:50 ? ECG Data Interpretation: Sinus rhythm rate [address] elevation or depression MDM Narrative Medical decision making narrative: Appropriate for admission. Patient will need surgical intervention for her hip fracture. Blood pressure has improved with IV fluids. O2 saturation improved with nasal cannula. No vasopressors are needed. Patient on 2 L nasal cannula and doing very well. At this time uncertain etiology of patient's arrival vital signs however have improved with conservative management. O2 saturation likely due to pulmonary fibrosis which is not new for patient. Patient in no respiratory distress and breathing and speaking with ease. Vital signs may be related to drug screen as well. Discharge Plan Departure Patient Disposition: Admitted As Inpatient Clinical Impression: Closed hip fracture Admit Date/Time: 06/28/22 17:05 Admit Provider: Yovani Vega
[2022-06-28] MEDS: SODIUM CHLORIDE 0.9% 1,000 ML 1000 ML IV (16:10)
[2022-06-28 16:29] LABS: Add Manual Diff / Slide Review NO; Basophils Absolute Auto 100 /uL (0-100); Basophils Percent Auto 0.8 % (0-2); Eosinophils Absolute Auto 200 /uL (0-450); Eosinophils Percent Auto 1.9 % (2-4); Hematocrit 34.5 % (36-46); Hemoglobin 11.5 g/dL (12.0-16.0); Lymphocytes Absolute Auto 2000 /uL (1100-4500); Lymphocytes Percent Auto 19.6 % (25-40); Mean Corpuscular HGB Conc 33.2 % (30-36); Mean Corpuscular Volume 87.4 fL (80-100); Monocytes Absolute Auto 800 /uL (0-900); Monocytes Percent Auto 7.6 % (3-14); Neutrophils Absolute Auto 7300 /uL (1500-7000); Neutrophils Percent Auto 70.1 % (50-75); Platelet Count 290 X10^3/uL (150-400); Red Blood Cell Count 3.95 X10^6/uL (4.0-5.2); Red Cell Distribution Width 14.3 % (11.6-14.8); White Blood Cell Count 10.4 X10^3/uL (4.5-11.0)
[2022-06-28 16:41] LABS: INR 1.2 (0.9-1.3); Prothrombin Time 14.2 SECONDS (10.1-12.7)
--- NOTE | 2022-06-28 16:42 | DI.RAD.S_ITS ---
PROCEDURE: XR CHEST 1V INDICATIONS: HIP PAIN AFTER FALL TECHNIQUE: One view of the chest was acquired. COMPARISON: [facility], CR, XR CHEST 2V, 04/25/2022, 17:05. FINDINGS: Surgical changes and devices: Surgical clips are seen in right hilar region. There is prior lower thoracic spine vertebral body kyphoplasty. Lungs and pleura: Mild pulmonary vascular congestion is seen. No definite focal infiltrate. No pleural effusions or pneumothorax. Mediastinum: Mediastinal contours appear normal. Heart size is enlarged. Bones and chest wall: No suspicious bony lesions. Overlying soft tissues appear unremarkable. IMPRESSION: Cardiomegaly and mild congestion. No focal infiltrate or pneumothorax. Dictated by: Samuel Lemus M.D. on 06/28/2022 at 16:50 Approved by: Samuel Lemus M.D. on 06/28/2022 at 16:51
[2022-06-28 16:43] LABS: PTT Partial Thromboplastin Tim 36 SECONDS (26-36)
[2022-06-28 17:14] LABS: Alanine Aminotransferase 30 IU/L (<35); Albumin 3.7 g/dL (3.5-5.0); Albumin Globulin Ratio 1.5 (1.0-2.8); Alkaline Phosphatase 88 U/L (38-126); Aspartate Aminotransferase 32 IU/L (14-36); Bilirubin Total 0.7 mg/dL (0.2-1.3); Blood Urea Nitrogen 25 mg/dL (7-17); Calcium 8.8 mg/dL (8.4-10.2); Carbon Dioxide 26 mmol/L (22-32); Chloride 101 mmol/L (98-107); Creatine Kinase 88 U/L (30-135); Estimated Glomerular Filt Rate > 60 mL/min (>60); Ethanol (ETOH) < 10 mg/dL; Globulin 2.5 g/dL (1.7-4.1); Glucose 115 mg/dL (80-110); HEMOLYSIS < 15 (0-50); Potassium 3.7 mmol/L (3.4-5.1); Sodium 135 mmol/L (137-145); Total Protein 6.2 g/dL (6.3-8.2)
[2022-06-28 17:23] LABS: Magnesium 1.9 mg/dL (1.6-2.3)
[2022-06-28 17:33] LABS: COVID19 -Nasal RAPID Negative (Negative)
[2022-06-28 17:38] LABS: UR Morphine/Opiate cutoff 300 Negative (Negative); Ur Creatinine Normal (Normal); Ur Specific Gravity Normal (Normal); Urine Amphetamines Positive (Negative); Urine Barbiturates Negative (Negative); Urine Benzodiazepines Positive (Negative); Urine Cocaine Negative (Negative); Urine MDMA Negative (Negative); Urine Methadone Negative (Negative); Urine Methamphetamines Positive (Negative); Urine Oxycodone Negative (Negative); Urine Phencyclidine Negative (Negative); Urine Tetrahydrocannabinol Positive (Negative); Urine Tricyclic Antidepressant Negative (Negative); Urine pH Normal (Normal)
[2022-06-28] MEDS: FUROSEMIDE 20 MG/2 ML VIAL IV (18:04)
[2022-06-28] MEDS: HYDROMORPHONE 0.5 MG INJ IV ×2 (19:24→23:34)
--- NOTE | 2022-06-28 21:50 | P.HP_ITS ---
History of Present Illness History of Present Illness Date Patient Seen: 06/28/22 Time Patient Seen: 21:00 Chief complaint: hip pain Narrative: Ms. Martin is a 72W with idiopathic pulmonary fibrosis, HTN, hypothyroid, fibromyalgia, and ascending aortic aneurysm who presents after a fall. She states she became tangled up in the dog leash while walking her dog. She felt on to her left hip and had immediate pain and inability to walk. She had no head strike or loss of consciousness. She recently was at another facility about a month ago for she states a heart attack. She does not provide much more information. In the ED workup was done, vitals notable for afebrile, initial blood pressure was documented in 60s systolic and pulse ox in the 80s. She was placed no oxygen. She was ordered for fluids and her blood pressure improved. Labs notale for WBC 10.4, hgb 11.5, plts 290. Creatinine 1.00. Trop 0.05. COVID negative. Chest xray read as cardiomegaly and mild congestion for which she was given lasix. Hip xray showed acute displaced femoral neck fracture. Ortho was consulted and she was admitted for further treatment. Family history: mother with TIA Social history: she denies alcohol, cigarettes, other substance use Patient History Medical History Fibromyalgia Hypertension Hypothyroidism Restrictive lung disease Surgical History No pertinent past surgical history Family & Social History Social History: household members significant other Prior Living Arrangements House Safety & Behavioral: Feels Safe in Current Yes Environment Been Physically Hurt or No Threatened By a Person Tobacco & Substance use: Tobacco type cigarettes Smoking Status Former smoker alcohol intake current alcohol intake frequency 0-2 drinks per day Substance Use Type marijuana,amphetamines,opiates,methamphetamine Meds Home Medications and Allergies Home Medications Medication Instructions Recorded Confirmed Type Glucosamine Sulfate (GLUCOSAMINE) ##0 03/06/13 History esomeprazole magnesium 40 mg 40 mg PO QDAY ##0 03/06/13 History capsule,delayed release (Nexium) fluoxetine 40 mg capsule (Prozac) 80 1 ##0 03/06/13 History levothyroxine 125 mcg tablet ##0 03/06/13 History (Synthroid) meloxicam 7.5 mg tablet (Mobic) ##0 03/06/13 History oxycodone 5 mg tablet (Roxicodone) 5 mg PO Q4P ##0 03/06/13 History pregabalin 100 mg capsule (Lyrica) 1 Q DAY ##0 03/06/13 History rosuvastatin 20 mg tablet (Crestor) ##0 03/06/13 History venlafaxine 50 mg tablet 50 mg PO ##0 03/06/13 History ketorolac 10 mg tablet 10 mg PO Q6H PRN pain #14 tabs 09/12/21 Rx lidocaine 5 % topical patch 1 patch topical DAILY #15 ea 09/12/21 Rx (Lidoderm) desloratadine 5 mg tablet 5 mg PO BID PRN nasal congestion 04/25/22 Rx (Clarinex) #20 tabs guaifenesin 600 mg tablet, 600 mg PO BID #20 tabs 04/25/22 Rx extended release 12 hr (Mucinex) methocarbamol 500 mg tablet 500 mg PO TID PRN muscle aches #14 04/25/22 Rx tabs nirmatrelvir 300 mg (150 mg See Rx Instructions PO .COMPLEX 04/25/22 Rx x2)-ritonavir 100 mg tablet,dose #30 ea pack(EUA) (Paxlovid) Allergies Allergy/AdvReac Type Severity Reaction Status Date / Time sulfamethoxazole Allergy Verified 06/28/22 16:34 [From ] trimethoprim [From ] Allergy Verified 06/28/22 16:34 adhesive tape AdvReac Verified 06/28/22 16:34 Review of Systems Review of Systems Narrative: 14 systems reviewed and negative aside from what is noted in HPI Exam Vital Signs (past 8 hours): - 06/28/22 15:47 06/28/22 15:59 06/28/22 16:00 Temperature 98.4 F Pulse Rate 64 66 Respiratory Rate 18 22 Blood Pressure 67/41 L 91/47 L Pulse Oximetry 84 L 82 L Oxygen Delivery Method Room Air Oxygen Flow Rate 06/28/22 16:00 06/28/22 16:04 06/28/22 16:04 Temperature Pulse Rate 64 65 Respiratory Rate 26 H 35 H Blood Pressure 94/48 L Pulse Oximetry 86 L 82 L Oxygen Delivery Method Oxygen Flow Rate 06/28/22 16:05 06/28/22 16:05 06/28/22 16:10 Temperature Pulse Rate 65 59 L Respiratory Rate 39 H 31 H Blood Pressure 98/48 L Pulse Oximetry 84 L 94 Oxygen Delivery Method Nasal Cannula Oxygen Flow Rate 2 06/28/22 16:15 06/28/22 16:17 06/28/22 16:17 Temperature Pulse Rate 59 L 59 L Respiratory Rate 36 H 39 H Blood Pressure 91/45 L Pulse Oximetry 97 95 Oxygen Delivery Method Nasal Cannula Nasal Cannula Nasal Cannula Oxygen Flow Rate 2 2 2 06/28/22 16:20 06/28/22 16:20 06/28/22 16:25 Temperature Pulse Rate 59 L Respiratory Rate 21 Blood Pressure 90/44 L 97/49 L Pulse Oximetry 94 Oxygen Delivery Method Nasal Cannula Nasal Cannula Nasal Cannula Oxygen Flow Rate 2 2 2 06/28/22 16:25 06/28/22 16:29 06/28/22 16:30 Temperature Pulse Rate 60 59 L Respiratory Rate 33 H 27 H Blood Pressure 108/55 L Pulse Oximetry 92 88 L Oxygen Delivery Method Nasal Cannula Nasal Cannula Nasal Cannula Oxygen Flow Rate 2 2 2 06/28/22 16:30 06/28/22 16:43 06/28/22 16:45 Temperature Pulse Rate 59 L 59 L 60 Respiratory Rate 21 12 Blood Pressure Pulse Oximetry 89 L 95 96 Oxygen Delivery Method Nasal Cannula Oxygen Flow Rate 3.5 06/28/22 16:50 06/28/22 16:55 06/28/22 17:00 Temperature Pulse Rate 61 60 61 Respiratory Rate 55 H 32 H 62 H Blood Pressure Pulse Oximetry 99 90 L 94 Oxygen Delivery Method Oxygen Flow Rate 06/28/22 17:05 06/28/22 17:10 06/28/22 17:15 Temperature Pulse Rate 62 62 62 Respiratory Rate 32 H 29 H 27 H Blood Pressure Pulse Oximetry 95 96 94 Oxygen Delivery Method Oxygen Flow Rate 06/28/22 17:20 06/28/22 17:25 06/28/22 17:30 Temperature Pulse Rate 62 66 68 Respiratory Rate 40 H 31 H 40 H Blood Pressure Pulse Oximetry 95 93 Oxygen Delivery Method Oxygen Flow Rate 06/28/22 17:35 06/28/22 17:40 06/28/22 17:45 Temperature Pulse Rate 67 69 68 Respiratory Rate 30 H 34 H 40 H Blood Pressure Pulse Oximetry 86 L 88 L 85 L Oxygen Delivery Method Oxygen Flow Rate 06/28/22 17:50 12/08/22 17:55 06/28/22 18:00 Temperature Pulse Rate 66 65 64 Respiratory Rate 33 H 36 H 41 H Blood Pressure Pulse Oximetry 94 96 94 Oxygen Delivery Method Oxygen Flow Rate 06/28/22 18:05 06/28/22 18:10 06/28/22 18:15 Temperature Pulse Rate 63 64 66 Respiratory Rate 43 H 32 H 38 H Blood Pressure Pulse Oximetry 91 92 93 Oxygen Delivery Method Oxygen Flow Rate 06/28/22 18:20 06/28/22 18:25 06/28/22 18:30 Temperature Pulse Rate 67 67 67 Respiratory Rate 39 H 31 H 33 H Blood Pressure Pulse Oximetry 93 91 92 Oxygen Delivery Method Nasal Cannula Oxygen Flow Rate 06/28/22 18:35 06/28/22 19:35 Temperature 97.9 F Pulse Rate 67 63 Respiratory Rate 31 H 17 Blood Pressure 113/44 L Pulse Oximetry 93 93 Oxygen Delivery Method Nasal Cannula Oxygen Flow Rate 1.5 0 Oxygen Delivery Method Nasal Cannula Oxygen Flow Rate 0 Narrative Exam Narrative: GEN: distress from pain HEENT: moist mucous membranes, PERRL NECK: trachea midline, no JVD PULM: fine crackles bilaterally CV: regular rate and rhythm, no murmurs ABD: soft, nontender, nondistended, no organomegaly EXT: warm and well perfused, left leg tenderness NEURO: awake, alert, oriented, no focal deficits Objective Labs Result Diagrams: 06/28/22 16:12 06/28/22 16:12 Labs: Laboratory Results - last 24 hr 06/28/22 06/28/22 06/28/22 16:12 16:12 16:12 WBC 10.4 RBC 3.95 L Hgb 11.5 L Hct 34.5 L MCV 87.4 MCH 29.0 MCHC 33.2 RDW 14.3 Plt Count 290 Neut % (Auto) 70.1 Lymph % (Auto) 19.6 L [place] % (Auto) 7.6 Eos % (Auto) 1.9 L Baso % (Auto) 0.8 Neut # (Auto) 7300 H Lymph # (Auto) 2000 [place] # (Auto) 800 Eos # (Auto) 200 Baso # (Auto) 100 PT 14.2 H INR 1.2 APTT 36 Sodium 135 L Potassium 3.7 Chloride 101 Carbon Dioxide 26 BUN 25 H Creatinine 1.00 Estimated GFR > 60 BUN/Creatinine Ratio 25.0 H Glucose 115 H Calcium 8.8 Magnesium Total Bilirubin 0.7 AST 32 ALT 30 Alkaline Phosphatase 88 Total Creatine Kinase 88 CK-MB (CK-2) TNP CK-MB (CK-2) Rel Index TNP Troponin I 0.050 H Total Protein 6.2 L Albumin 3.7 Globulin 2.5 Albumin/Globulin Ratio 1.5 U Opiates 300ng/mL cut Ur Oxycodone Screen Urine Methadone Screen Ur Barbiturates Screen U Tricyclic Antidepress Ur Phencyclidine Scrn Ur Amphetamines Screen U Methamphetamines Scrn Ur MDMA Scrn (Ecstasy) U Benzodiazepines Scrn Urine Cocaine Screen U Marijuana (THC) Screen Ethyl Alcohol < 10 SARS-CoV-2 (PCR) 06/28/22 06/28/22 06/28/22 16:12 16:54 17:07 WBC RBC Hgb Hct MCV MCH MCHC RDW Plt Count Neut % (Auto) Lymph % (Auto) [place] % (Auto) Eos % (Auto) Baso % (Auto) Neut # (Auto) Lymph # (Auto) [place] # (Auto) Eos # (Auto) Baso # (Auto) PT INR APTT Sodium Potassium Chloride Carbon Dioxide BUN Creatinine Estimated GFR BUN/Creatinine Ratio Glucose Calcium Magnesium 1.9 Total Bilirubin AST ALT Alkaline Phosphatase Total Creatine Kinase CK-MB (CK-2) CK-MB (CK-2) Rel Index Troponin I Total Protein Albumin Globulin Albumin/Globulin Ratio U Opiates 300ng/mL cut Negative Ur Oxycodone Screen Negative Urine Methadone Screen Negative Ur Barbiturates Screen Negative U Tricyclic Antidepress Negative Ur Phencyclidine Scrn Negative Ur Amphetamines Screen Positive H U Methamphetamines Scrn Positive H Ur MDMA Scrn (Ecstasy) Negative U Benzodiazepines Scrn Positive H Urine Cocaine Screen Negative U Marijuana (THC) Screen Positive H Ethyl Alcohol SARS-CoV-2 (PCR) Negative Assessment & Plan Assessment & Plan narrative: 1. Left hip fracture -keep in bed until surgery -ortho consulted and plan for surgery 06/29 -IV pain medications ordered -PT/OT after surgery 2. Acute respiratory distress -did require intermittent oxygen support -has known history of ILD, and recent cardiac medical issue per patient -suspect this may be secondary to ILD, vs fluid overload -did get lasix on admit, with good urine output -trend troponins -ECHO shows EF 60-65 3. Ascending aortic aneurysm -ECHO 12/2021 ascending aneurysm was 6cm -unclear per patient what plan is regarding this -was at [facility] recently, will get records -order CT angio chest for further evaluation 4. ILD -careful with fluid overload -supplmental oxygen PRN 5. Fibromyalgia and possible depression -continue home meds once reconciled CODE: Full Proxy: Yovani Wheat, life partner I have utilized all available resources to reconcile the patient's home medications Time Spent With Patient Critical Care time: I spent a total of [] minutes of critical care time on this patient's care today; this time is exclusive of procedural time. Quality VTE Deep Vein Thrombosis/Pulmonary Embolism Present on Admission: No
--- NOTE | 2022-06-28 22:15 | DI.CT.S_ITS ---
PROCEDURE: CT ANGIO CHEST INDICATIONS: known ascending aortic aneurysm, eval please TECHNIQUE: After the administration of intravenous contrast, 2.5 mm thick sections acquired from the lung apices to the posterior lung bases. Maximum intensity projection (MIP) oblique sagittal reformats were then acquired parallel to the aortic arch. For radiation dose reduction, the following was used: automated exposure control. COMPARISON: [facility], CR, XR CHEST 1V, 06/28/2022, 16:10. FINDINGS: Image quality: Excellent. Aorta: The aortic root appears normal in caliber, measuring up to 3.4 cm at the level of the sinuses of Valsalva. The aorta measures up to 3.5 cm at the sinotubular junction. There is fusiform aneurysmal dilatation of the ascending thoracic aorta which measures up to 6.4 cm dimension. The aortic arch measures up to 2.5 cm in diameter. The proximal descending aorta is normal in caliber, measuring up to 2.8 cm. At the level of the diaphragmatic hiatus, the aorta measures up to 2.4 cm. The visualized abdominal aorta appears widely patent and normal in caliber. No mural irregularity or contrast extravasation to suggest aortic injury. Mediastinum: Heart size is enlarged. No pericardial effusion. No mediastinal or hilar adenopathy by size criteria. Central pulmonary arteries are normal in size and demonstrate no filling defects to suggest central pulmonary embolism. Esophagus is normal in caliber. No hiatal hernia. Lungs and pleura: There is a small left pleural effusion. Mild associated compressive atelectasis demonstrated bilaterally. Central and peripheral airways are patent and normal in caliber. Bones and chest wall: No axillary adenopathy by size criteria. No suspicious bony lesions. No vertebral body compression fractures. Abdomen: Visualized upper abdomen demonstrates pneumobilia within the left hepatic lobe. Bones: There is bone cement within the IMPRESSION: 1. Fusiform aneurysmal dilatation of the ascending thoracic aorta which measures up to 6.4 cm. 2. Aortic arch, descending aorta, and visualized abdominal aorta are normal in caliber. 3. Small left pleural effusion with associated compressive atelectasis. 4. Pneumobilia within the visualized left hepatic lobe. Recommend correlation with clinical history for possible prior ampullary intervention. Dictated by: Henry Mabry M.D. on 06/29/2022 at 2:44 Approved by: Henry Mabry M.D. on 06/29/2022 at 2:53
[2022-06-29] VITALS (23 sets, daily range): BP systolic 77–135; BP diastolic 33–56; PULSE 71–77; RESP 12–27; TEMP 36.5–37; O2SAT 84–95
[2022-06-29 05:31] LABS: Add Manual Diff / Slide Review NO; Basophils Absolute Auto 0 /uL (0-100); Basophils Percent Auto 0.3 % (0-2); Eosinophils Absolute Auto 300 /uL (0-450); Eosinophils Percent Auto 2.9 % (2-4); Hematocrit 34.8 % (36-46); Hemoglobin 11.4 g/dL (12.0-16.0); Lymphocytes Absolute Auto 1100 /uL (1100-4500); Lymphocytes Percent Auto 10.3 % (25-40); Mean Corpuscular HGB Conc 32.8 % (30-36); Mean Corpuscular Hemoglobin 28.7 PG (26-34); Mean Corpuscular Volume 87.4 fL (80-100); Monocytes Absolute Auto 700 /uL (0-900); Monocytes Percent Auto 6.3 % (3-14); Neutrophils Absolute Auto 8500 /uL (1500-7000); Neutrophils Percent Auto 80.2 % (50-75); Platelet Count 254 X10^3/uL (150-400); Red Blood Cell Count 3.98 X10^6/uL (4.0-5.2); Red Cell Distribution Width 14.3 % (11.6-14.8); White Blood Cell Count 10.6 X10^3/uL (4.5-11.0)
[2022-06-29 05:37] LABS: BUN Creatinine Ratio 20.6 (6-22); Blood Urea Nitrogen 22 mg/dL (7-17); Calcium 8.7 mg/dL (8.4-10.2); Carbon Dioxide 27 mmol/L (22-32); Chloride 101 mmol/L (98-107); Estimated Glomerular Filt Rate 56 mL/min (>60); Glucose 120 mg/dL (80-110); HEMOLYSIS < 15 (0-50); Sodium 135 mmol/L (137-145)
[2022-06-29 05:48] LABS: Troponin I 0.041 ng/mL (0.01-0.034)
--- NOTE | 2022-06-29 07:06 | PM.PN.1 ---
Subjective Subjective Date Patient Seen: 06/29/22 Time Patient Seen: 06:00 Interval history: She continues to have back pain. She is still short of breath. Exam Vital Signs (past 8 hours): - 06/29/22 01:14 Temperature 97.9 F Pulse Rate 77 Respiratory Rate 17 Blood Pressure 123/48 L Pulse Oximetry 91 Oxygen Flow Rate 0 Oxygen Delivery Method Nasal Cannula Oxygen Flow Rate 0 Narrative Exam Narrative: GEN: distress from pain HEENT: moist mucous membranes, PERRL NECK: trachea midline, no JVD PULM: coarse breath sounds CV: regular rate and rhythm, no murmurs ABD: soft, nontender, nondistended, no organomegaly EXT: warm and well perfused, left leg tenderness NEURO: awake, alert, oriented, no focal deficits Objective Labs Result Diagrams: 06/29/22 04:49 06/29/22 04:49 Labs: Laboratory Results - last 24 hr 06/28/22 06/28/22 06/28/22 16:12 16:12 16:12 WBC 10.4 RBC 3.95 L Hgb 11.5 L Hct 34.5 L MCV 87.4 MCH 29.0 MCHC 33.2 RDW 14.3 Plt Count 290 Neut % (Auto) 70.1 Lymph % (Auto) 19.6 L [place] % (Auto) 7.6 Eos % (Auto) 1.9 L Baso % (Auto) 0.8 Neut # (Auto) 7300 H Lymph # (Auto) 2000 [place] # (Auto) 800 Eos # (Auto) 200 Baso # (Auto) 100 PT 14.2 H INR 1.2 APTT 36 Sodium 135 L Potassium 3.7 Chloride 101 Carbon Dioxide 26 BUN 25 H Creatinine 1.00 Estimated GFR > 60 BUN/Creatinine Ratio 25.0 H Glucose 115 H Calcium 8.8 Magnesium Total Bilirubin 0.7 AST 32 ALT 30 Alkaline Phosphatase 88 Total Creatine Kinase 88 CK-MB (CK-2) TNP CK-MB (CK-2) Rel Index TNP Troponin I 0.050 H Total Protein 6.2 L Albumin 3.7 Globulin 2.5 Albumin/Globulin Ratio 1.5 U Opiates 300ng/mL cut Ur Oxycodone Screen Urine Methadone Screen Ur Barbiturates Screen U Tricyclic Antidepress Ur Phencyclidine Scrn Ur Amphetamines Screen U Methamphetamines Scrn Ur MDMA Scrn (Ecstasy) U Benzodiazepines Scrn Urine Cocaine Screen U Marijuana (THC) Screen Ethyl Alcohol < 10 SARS-CoV-2 (PCR) 06/28/22 06/28/22 06/28/22 16:12 16:54 17:07 WBC RBC Hgb Hct MCV MCH MCHC RDW Plt Count Neut % (Auto) Lymph % (Auto) [place] % (Auto) Eos % (Auto) Baso % (Auto) Neut # (Auto) Lymph # (Auto) [place] # (Auto) Eos # (Auto) Baso # (Auto) PT INR APTT Sodium Potassium Chloride Carbon Dioxide BUN Creatinine Estimated GFR BUN/Creatinine Ratio Glucose Calcium Magnesium 1.9 Total Bilirubin AST ALT Alkaline Phosphatase Total Creatine Kinase CK-MB (CK-2) CK-MB (CK-2) Rel Index Troponin I Total Protein Albumin Globulin Albumin/Globulin Ratio U Opiates 300ng/mL cut Negative Ur Oxycodone Screen Negative Urine Methadone Screen Negative Ur Barbiturates Screen Negative U Tricyclic Antidepress Negative Ur Phencyclidine Scrn Negative Ur Amphetamines Screen Positive H U Methamphetamines Scrn Positive H Ur MDMA Scrn (Ecstasy) Negative U Benzodiazepines Scrn Positive H Urine Cocaine Screen Negative U Marijuana (THC) Screen Positive H Ethyl Alcohol SARS-CoV-2 (PCR) Negative 06/29/22 06/29/22 06/29/22 04:49 04:49 04:49 WBC 10.6 RBC 3.98 L Hgb 11.4 L Hct 34.8 L MCV 87.4 MCH 28.7 MCHC 32.8 RDW 14.3 Plt Count 254 Neut % (Auto) 80.2 H Lymph % (Auto) 10.3 L [place] % (Auto) 6.3 Eos % (Auto) 2.9 Baso % (Auto) 0.3 Neut # (Auto) 8500 H Lymph # (Auto) 1100 [place] # (Auto) 700 Eos # (Auto) 300 Baso # (Auto) 0 PT INR APTT Sodium 135 L Potassium 4.0 Chloride 101 Carbon Dioxide 27 BUN 22 H Creatinine 1.07 H Estimated GFR 56 L BUN/Creatinine Ratio 20.6 Glucose 120 H Calcium 8.7 Magnesium Total Bilirubin AST ALT Alkaline Phosphatase Total Creatine Kinase CK-MB (CK-2) CK-MB (CK-2) Rel Index Troponin I 0.041 H Total Protein Albumin Globulin Albumin/Globulin Ratio U Opiates 300ng/mL cut Ur Oxycodone Screen Urine Methadone Screen Ur Barbiturates Screen U Tricyclic Antidepress Ur Phencyclidine Scrn Ur Amphetamines Screen U Methamphetamines Scrn Ur MDMA Scrn (Ecstasy) U Benzodiazepines Scrn Urine Cocaine Screen U Marijuana (THC) Screen Ethyl Alcohol SARS-CoV-2 (PCR) [facility] Medical History Fibromyalgia Hypertension Hypothyroidism Restrictive lung disease Surgical History No pertinent past surgical history Social History household members: significant other Smoking Status: Former smoker alcohol intake: current substance use type: does not use Assessment & Plan Assessment & Plan narrative: 1. Left hip fracture -keep in bed until surgery -ortho consulted and plan for surgery 06/29 -IV pain medications ordered -PT/OT after surgery 2. Acute respiratory distress -did require intermittent oxygen support -has known history of ILD, and recent cardiac medical issue per patient -suspect this may be secondary to ILD, vs fluid overload -did get lasix on admit, with good urine output -trend troponins -ECHO shows EF 60-65 3. Ascending aortic aneurysm -ECHO 12/2021 ascending aneurysm was 6cm -CTA showed aneurysm of 6.4cm -she has been referred for follow up for this but this has not happened -keep blood pressure controlled 4. Elevated troponin -was at [facility] recently, records showed possible NSTEMI at the end of May -troponin .050 but now downtrending to .041 -no chest pain or EKG changes -suspect secondary to cardiac demand 5. ILD -careful with fluid overload -supplmental oxygen PRN 6. Fibromyalgia and possible depression -continue home meds once reconciled Patient has elevated risk for surgery with recent admission for NSTEMI at [facility] in 2020. She was ultimately discharged without workup due to bed shortage and prolonged ED stay. She also has a untreated large thoracic aortic aneurysm. Her blood pressure should be closely controlled in surgery to prevent hypertension. CODE: Full Proxy: Yovani Wheat, life partner I have utilized all available resources to reconcile the patient's home medications Time Spent With Patient Critical Care time: I spent a total of [] minutes of critical care time on this patient's care today; this time is exclusive of procedural time. Quality VTE Deep Vein Thrombosis/Pulmonary Embolism Present on Admission: No
[2022-06-29] MEDS: HYDROMORPHONE 0.5 MG INJ IV ×2 (08:02→15:45)
--- NOTE | 2022-06-29 09:06 | PM.PN.1 ---
Exam Vital Signs (past 8 hours): - 06/29/22 01:14 06/29/22 08:04 Temperature 97.9 F 98.6 F Pulse Rate 77 77 Respiratory Rate 17 16 Blood Pressure 123/48 L 119/55 L Pulse Oximetry 91 94 Oxygen Flow Rate 0 0 Oxygen Delivery Method Nasal Cannula Oxygen Flow Rate 0 Narrative Exam Narrative: GEN: distress from pain HEENT: moist mucous membranes, PERRL NECK: trachea midline, no JVD PULM: coarse breath sounds CV: regular rate and rhythm, no murmurs ABD: soft, nontender, nondistended, no organomegaly EXT: warm and well perfused, left leg tenderness NEURO: awake, alert, oriented, no focal deficits Objective Labs Result Diagrams: 06/29/22 04:49 06/29/22 04:49 Labs: Laboratory Results - last 24 hr 06/28/22 06/28/22 06/28/22 16:12 16:12 16:12 WBC 10.4 RBC 3.95 L Hgb 11.5 L Hct 34.5 L MCV 87.4 MCH 29.0 MCHC 33.2 RDW 14.3 Plt Count 290 Neut % (Auto) 70.1 Lymph % (Auto) 19.6 L [place] % (Auto) 7.6 Eos % (Auto) 1.9 L Baso % (Auto) 0.8 Neut # (Auto) 7300 H Lymph # (Auto) 2000 [place] # (Auto) 800 Eos # (Auto) 200 Baso # (Auto) 100 PT 14.2 H INR 1.2 APTT 36 Sodium 135 L Potassium 3.7 Chloride 101 Carbon Dioxide 26 BUN 25 H Creatinine 1.00 Estimated GFR > 60 BUN/Creatinine Ratio 25.0 H Glucose 115 H Calcium 8.8 Magnesium Total Bilirubin 0.7 AST 32 ALT 30 Alkaline Phosphatase 88 Total Creatine Kinase 88 CK-MB (CK-2) TNP CK-MB (CK-2) Rel Index TNP Troponin I 0.050 H Total Protein 6.2 L Albumin 3.7 Globulin 2.5 Albumin/Globulin Ratio 1.5 U Opiates 300ng/mL cut Ur Oxycodone Screen Urine Methadone Screen Ur Barbiturates Screen U Tricyclic Antidepress Ur Phencyclidine Scrn Ur Amphetamines Screen U Methamphetamines Scrn Ur MDMA Scrn (Ecstasy) U Benzodiazepines Scrn Urine Cocaine Screen U Marijuana (THC) Screen Ethyl Alcohol < 10 SARS-CoV-2 (PCR) 06/28/22 06/28/22 06/28/22 16:12 16:54 17:07 WBC RBC Hgb Hct MCV MCH MCHC RDW Plt Count Neut % (Auto) Lymph % (Auto) [place] % (Auto) Eos % (Auto) Baso % (Auto) Neut # (Auto) Lymph # (Auto) [place] # (Auto) Eos # (Auto) Baso # (Auto) PT INR APTT Sodium Potassium Chloride Carbon Dioxide BUN Creatinine Estimated GFR BUN/Creatinine Ratio Glucose Calcium Magnesium 1.9 Total Bilirubin AST ALT Alkaline Phosphatase Total Creatine Kinase CK-MB (CK-2) CK-MB (CK-2) Rel Index Troponin I Total Protein Albumin Globulin Albumin/Globulin Ratio U Opiates 300ng/mL cut Negative Ur Oxycodone Screen Negative Urine Methadone Screen Negative Ur Barbiturates Screen Negative U Tricyclic Antidepress Negative Ur Phencyclidine Scrn Negative Ur Amphetamines Screen Positive H U Methamphetamines Scrn Positive H Ur MDMA Scrn (Ecstasy) Negative U Benzodiazepines Scrn Positive H Urine Cocaine Screen Negative U Marijuana (THC) Screen Positive H Ethyl Alcohol SARS-CoV-2 (PCR) Negative 06/29/22 06/29/22 06/29/22 04:49 04:49 04:49 WBC 10.6 RBC 3.98 L Hgb 11.4 L Hct 34.8 L MCV 87.4 MCH 28.7 MCHC 32.8 RDW 14.3 Plt Count 254 Neut % (Auto) 80.2 H Lymph % (Auto) 10.3 L [place] % (Auto) 6.3 Eos % (Auto) 2.9 Baso % (Auto) 0.3 Neut # (Auto) 8500 H Lymph # (Auto) 1100 [place] # (Auto) 700 Eos # (Auto) 300 Baso # (Auto) 0 PT INR APTT Sodium 135 L Potassium 4.0 Chloride 101 Carbon Dioxide 27 BUN 22 H Creatinine 1.07 H Estimated GFR 56 L BUN/Creatinine Ratio 20.6 Glucose 120 H Calcium 8.7 Magnesium Total Bilirubin AST ALT Alkaline Phosphatase Total Creatine Kinase CK-MB (CK-2) CK-MB (CK-2) Rel Index Troponin I 0.041 H Total Protein Albumin Globulin Albumin/Globulin Ratio U Opiates 300ng/mL cut Ur Oxycodone Screen Urine Methadone Screen Ur Barbiturates Screen U Tricyclic Antidepress Ur Phencyclidine Scrn Ur Amphetamines Screen U Methamphetamines Scrn Ur MDMA Scrn (Ecstasy) U Benzodiazepines Scrn Urine Cocaine Screen U Marijuana (THC) Screen Ethyl Alcohol SARS-CoV-2 (PCR) COUNTS INCLUDE 234 BEDS AT THE [facility] Medical History Fibromyalgia Hypertension Hypothyroidism Restrictive lung disease Surgical History No pertinent past surgical history Social History household members: significant other Smoking Status: Former smoker alcohol intake: current substance use type: does not use Assessment & Plan Assessment & Plan narrative: 1. Left hip fracture -keep in bed until surgery -ortho consulted and plan for surgery 06/29 -IV pain medications ordered -PT/OT after surgery 2. Acute respiratory distress -did require intermittent oxygen support -has known history of ILD, and recent cardiac medical issue per patient -suspect this may be secondary to ILD, vs fluid overload -did get lasix on admit, with good urine output -trend troponins -ECHO shows EF 60-65 3. Ascending aortic aneurysm -ECHO 12/2021 ascending aneurysm was 6cm -CTA showed aneurysm of 6.4cm -she has been referred for follow up for this but this has not happened -keep blood pressure controlled 4. Elevated troponin -was at [facility] recently, records showed possible NSTEMI at the end of May -troponin .050 but now downtrending to .041 -no chest pain or EKG changes -suspect secondary to cardiac demand 5. ILD -careful with fluid overload -supplmental oxygen PRN 6. Fibromyalgia and possible depression -continue home meds once reconciled Patient has elevated risk for surgery with recent admission for NSTEMI at [facility] in 2020. She was ultimately discharged without workup due to bed shortage and prolonged ED stay. She also has a untreated large thoracic aortic aneurysm. Her blood pressure should be closely controlled in surgery to prevent hypertension. CODE: Full Proxy: Yovani Wheat, life partner I have utilized all available resources to reconcile the patient's home medications Time Spent With Patient Critical Care time: I spent a total of [] minutes of critical care time on this patient's care today; this time is exclusive of procedural time. Quality VTE Deep Vein Thrombosis/Pulmonary Embolism Present on Admission: No
--- NOTE | 2022-06-29 12:02 | PM.HP.1 ---
History of Present Illness History of Present Illness Date Patient Seen: 06/29/22 Time Patient Seen: 12:03 Date of Onset of Symptoms: 06/28/22 Chief complaint: hip pain Narrative: Sue is a 72-year-old female who sustained a ground level fall yesterday. She felt immediate pain and was unable to bear weight on her left side. She was brought to [facility] Emergency Department where imaging was obtained demonstrating a left femoral neck fracture. Of note, she had a NSTEMI at the end of May. Currently her troponins are 0.05 and still trending down, she also had a ultrasound which was negative. She has past medical history of fibromyalgia and has a fentanyl patch and has oxycodone at home. Her pain management is being done by her primary care doctor in [place]. She does live with her partner who is able to take care of her and she does not have any stairs in her home. She denies any recent nausea, vomiting, fevers, chills or any other constitutional symptoms. Patient History Medical History Fibromyalgia Hypertension Hypothyroidism Restrictive lung disease Surgical History No pertinent past surgical history Family & Social History Social History: household members significant other Prior Living Arrangements House Safety & Behavioral: Feels Safe in Current Yes Environment Been Physically Hurt or No Threatened By a Person Tobacco & Substance use: Tobacco type cigarettes Smoking Status Former smoker alcohol intake current alcohol intake frequency 0-2 drinks per day Substance Use Type marijuana,amphetamines,opiates,methamphetamine Meds Home Medications and Allergies Home Medications Medication Instructions Recorded Confirmed Type esomeprazole magnesium 40 mg 40 mg PO QDAY ##0 03/06/13 06/28/22 History capsule,delayed release (Nexium) fluoxetine 40 mg capsule (Prozac) 40 mg PO 1 ##0 03/06/13 06/28/22 History levothyroxine 125 mcg tablet 100 mcg PO DAILY ##0 03/06/13 06/28/22 History (Synthroid) meloxicam 7.5 mg tablet (Mobic) 7.5 mg PO PRN PRN Muscle Pain ##0 03/06/13 06/28/22 History oxycodone 5 mg tablet (Roxicodone) 5 mg PO Q4P pain ##0 03/06/13 06/28/22 History fentanyl 75 mcg/hr transdermal 75 mcg transdermal 3XD pain 06/28/22 06/28/22 History patch guaifenesin 600 mg tablet, 600 mg PO BID PRN Cough 06/28/22 06/28/22 History extended release 12 hr (Mucinex) methocarbamol 500 mg tablet 500 mg PO PRN PRN Pain (Scale 06/28/22 06/28/22 History Score 4-6) Allergies Allergy/AdvReac Type Severity Reaction Status Date / Time sulfamethoxazole Allergy Verified 06/28/22 16:34 [From ] trimethoprim [From ] Allergy Verified 06/28/22 16:34 adhesive tape AdvReac Verified 06/28/22 16:34 Review of Systems Review of Systems ROS: Yes All systems reviewed with the patient and are negative except as otherwise documented Exam Vital Signs (past 8 hours): - 06/29/22 08:04 Temperature 98.6 F Pulse Rate 77 Respiratory Rate 16 Blood Pressure 119/55 L Pulse Oximetry 94 Oxygen Flow Rate 0 Oxygen Delivery Method Nasal Cannula Oxygen Flow Rate 0 Narrative Exam Narrative: HEENT: Head atraumatic eyes anicteric moist mucous membranes Cardiovascular: Warm and well-perfused extremities palpable pulses Respiratory: Breathing comfortably on room air Psychiatric: Appropriate mood and affect Neuro: No acute deficits Musculoskeletal: Focused exam of the left lower extremity demonstrates leg held in flexion and external rotation. Distally sensation intact to light touch from L2 through S2. Palpable dorsalis pedis pulse with brisk capillary refill less than 2 seconds. Objective Labs Result Diagrams: 06/29/22 04:49 06/29/22 04:49 Labs: Laboratory Results - last 24 hr 06/28/22 06/28/22 06/28/22 16:12 16:12 16:12 WBC 10.4 RBC 3.95 L Hgb 11.5 L Hct 34.5 L MCV 87.4 MCH 29.0 MCHC 33.2 RDW 14.3 Plt Count 290 Neut % (Auto) 70.1 Lymph % (Auto) 19.6 L [place] % (Auto) 7.6 Eos % (Auto) 1.9 L Baso % (Auto) 0.8 Neut # (Auto) 7300 H Lymph # (Auto) 2000 [place] # (Auto) 800 Eos # (Auto) 200 Baso # (Auto) 100 PT 14.2 H INR 1.2 APTT 36 Sodium 135 L Potassium 3.7 Chloride 101 Carbon Dioxide 26 BUN 25 H Creatinine 1.00 Estimated GFR > 60 BUN/Creatinine Ratio 25.0 H Glucose 115 H Calcium 8.8 Magnesium Total Bilirubin 0.7 AST 32 ALT 30 Alkaline Phosphatase 88 Total Creatine Kinase 88 CK-MB (CK-2) TNP CK-MB (CK-2) Rel Index TNP Troponin I 0.050 H Total Protein 6.2 L Albumin 3.7 Globulin 2.5 Albumin/Globulin Ratio 1.5 U Opiates 300ng/mL cut Ur Oxycodone Screen Urine Methadone Screen Ur Barbiturates Screen U Tricyclic Antidepress Ur Phencyclidine Scrn Ur Amphetamines Screen U Methamphetamines Scrn Ur MDMA Scrn (Ecstasy) U Benzodiazepines Scrn Urine Cocaine Screen U Marijuana (THC) Screen Ethyl Alcohol < 10 SARS-CoV-2 (PCR) 06/28/22 06/28/22 06/28/22 16:12 16:54 17:07 WBC RBC Hgb Hct MCV MCH MCHC RDW Plt Count Neut % (Auto) Lymph % (Auto) [place] % (Auto) Eos % (Auto) Baso % (Auto) Neut # (Auto) Lymph # (Auto) [place] # (Auto) Eos # (Auto) Baso # (Auto) PT INR APTT Sodium Potassium Chloride Carbon Dioxide BUN Creatinine Estimated GFR BUN/Creatinine Ratio Glucose Calcium Magnesium 1.9 Total Bilirubin AST ALT Alkaline Phosphatase Total Creatine Kinase CK-MB (CK-2) CK-MB (CK-2) Rel Index Troponin I Total Protein Albumin Globulin Albumin/Globulin Ratio U Opiates 300ng/mL cut Negative Ur Oxycodone Screen Negative Urine Methadone Screen Negative Ur Barbiturates Screen Negative U Tricyclic Antidepress Negative Ur Phencyclidine Scrn Negative Ur Amphetamines Screen Positive H U Methamphetamines Scrn Positive H Ur MDMA Scrn (Ecstasy) Negative U Benzodiazepines Scrn Positive H Urine Cocaine Screen Negative U Marijuana (THC) Screen Positive H Ethyl Alcohol SARS-CoV-2 (PCR) Negative 06/29/22 06/29/22 06/29/22 04:49 04:49 04:49 WBC 10.6 RBC 3.98 L Hgb 11.4 L Hct 34.8 L MCV 87.4 MCH 28.7 MCHC 32.8 RDW 14.3 Plt Count 254 Neut % (Auto) 80.2 H Lymph % (Auto) 10.3 L [place] % (Auto) 6.3 Eos % (Auto) 2.9 Baso % (Auto) 0.3 Neut # (Auto) 8500 H Lymph # (Auto) 1100 [place] # (Auto) 700 Eos # (Auto) 300 Baso # (Auto) 0 PT INR APTT Sodium 135 L Potassium 4.0 Chloride 101 Carbon Dioxide 27 BUN 22 H Creatinine 1.07 H Estimated GFR 56 L BUN/Creatinine Ratio 20.6 Glucose 120 H Calcium 8.7 Magnesium Total Bilirubin AST ALT Alkaline Phosphatase Total Creatine Kinase CK-MB (CK-2) CK-MB (CK-2) Rel Index Troponin I 0.041 H Total Protein Albumin Globulin Albumin/Globulin Ratio U Opiates 300ng/mL cut Ur Oxycodone Screen Urine Methadone Screen Ur Barbiturates Screen U Tricyclic Antidepress Ur Phencyclidine Scrn Ur Amphetamines Screen U Methamphetamines Scrn Ur MDMA Scrn (Ecstasy) U Benzodiazepines Scrn Urine Cocaine Screen U Marijuana (THC) Screen Ethyl Alcohol SARS-CoV-2 (PCR) Assessment & Plan Assessment & Plan narrative: Assessment: Left femoral neck fracture Plan: Discussed exam and imaging. Given the nature of the fracture, nonoperative or ORIF will likely result in avascular necrosis of the femoral head. For this reason I recommend a hemiarthroplasty. This will allow early weight-bearing and pain control. The risks and benefits of surgery were discussed with her including the risk of infection, damage to internal structures, failure of surgery, failure of implants and need for further surgery. No guarantees were made regarding outcomes. She acknowledged the risks and wished to go forward with surgery. Time Spent With Patient Critical Care time: I spent a total of [] minutes of critical care time on this patient's care today; this time is exclusive of procedural time. Quality VTE Deep Vein Thrombosis/Pulmonary Embolism Present on Admission: No
--- NOTE | 2022-06-29 12:18 | CM.DANOTE ---
Initial DCP Assessment Note Pt is a 72 yo female, resident of [place], presents after GLF at home while tangled in her boxer-pit bull's leash Patient is scheduled for a Rt Hemiarthroplasty at 1800 today Patient's toxicology significant for: Meth, amphetamines, Benzos and THC+ PCP: Raffi Quiroga Payer: [facility] Gen Met w/patient, introduced self and role Patient lives with her partner Yovani and they both live off of patient's social security disability and Yovani's food stamps. Patient explains she and Yovani allow people to come in and out of their home and can have upwards of 6 people staying there at a time Patient admits to occasional meth use and states she has not used for a month. Patient admits to daily marijuana use. Patient feels the meth use is mostly to get things done when she feels in pain and chronically fatigued Patient does not feel like her drug use is a problem for her and denies need for outpatient resources. Encouraged patient to consider securing a counselor for description of daily struggle with anxiety and sleep. Currently, Dr Quiroga is prescribing Prozac for patient Patient denies hx of HH or SNF rehab stay and is hopeful she will be able to recover at home post discharge. Open to HH services. PT/OT to follow pot operatively. CM team will follow along and make necessary referrals as needed. Likely home w/outpatient f/u vs HH services if patient agrees and if they are available to patient SINGH Watson Discharge Planning/Care Management CM Discharge Assessment Start: 06/29/22 12:08 Freq: Status: Active Protocol: Document 06/29/22 12:09 JOSE (Rec: 06/29/22 12:18 JOSE [id number]) Discharge Planning Assessment Assigned Java Programmer Analyst SINGH Meyers DPOA/Assigned Designee Name Yovani Wheat, partner Contact Information [phone] Advance Directives? No History Provided By Patient,Medical Record Prior Living Arrangements House Household Members significant other Comment Patient says she and partner take in strays (people w/o a home) and they often have many people who come and go. Patient admits many are active drug users Type of transporation used prior to Relies on Others admit Independent with ADL's Yes: Walking canes just broke, unsteady on feet, hx falls Is patient alert and oriented? Yes Needs Assistance With Meal Prep,Home Chores / Shopping Patient/Family Preference Home with Home Health Barriers to Discharge Yes Comment Possible barriers may include partner Yovani's inability to care for patient and/or poor living environment for recovery and care...however, if patient passes PT and returns home, CM team can r/o need for HH or other outpatient services, if patient is agreeable. Discharge Plan Home Transportation Arrangement Partner or friend Additional Comment pending surgery and post operative PT/OT
[2022-06-29] MEDS: SODIUM CHLORIDE 0.9% FLUSH 10 ML IV (15:45)
--- NOTE | 2022-06-29 18:41 | PC.NURSE ---
Day shift: Pt off unit to OR for hip surgery at approx 1840.
--- NOTE | 2022-06-29 19:42 | SUR.OPER ---
Lateral on a núñez bag, head on pillow, gel axillary roll in place, bottom leg bent with gel pad under knee to foot, upper leg straight and supported with pillows. Upper arm supported by pillows and secured over bottom arm to padded arm board. Safety belt at hip, tape over blanket lower legs.
[2022-06-29] MEDS: CEFAZOLIN 2 GM/100 ML PREMIX 100 ML IV (20:24)
[2022-06-29] MEDS: TRANEXAMIC ACID 1,000 MG in SODIUM CHLORIDE 0.9% 100 ML 200 MG IV ×2 (20:24→21:35)
[2022-06-29] MEDS: BUPIVACAINE 0.5% (PF) 30 ML, EPINEPHrine 0.15 MG INJ (20:51)
--- NOTE | 2022-06-29 20:57 | PM.PROC.1 ---
Procedures Date/Time Date of procedure: 06/29/22 Time of procedure: 19:50 Arterial Line Time out performed: Yes Size (Gauge): 20 Technique used: guide wire technique Post-Procedure: dry sterile dressing placed Patient tolerated procedure: Well and No complications Complications: none Site: right and radial
--- NOTE | 2022-06-29 21:46 | P.OP_ITS ---
Operative Date/Time/Diagnoses Date of procedure: 06/29/22 Time of procedure: 21:46 Pre-op diagnosis: Left femoral neck fracture Post-op diagnosis: same Procedure & Clinicians Procedure: Left hip hemiarthroplasty Same procedure as scheduled: Yes Indications: Indication: This is a 72 old female with a left femoral neck fracture. We discussed that in order to decrease the risk of avascular necrosis, fracture nonunion fracture malunion and to increase the ability to weightbear early, and increase overall health outcomes, we recommend hip hemiarthroplasty. The risks and benefits of surgery were discussed in detail including the risk for infection, damage to internal structures, bleeding, hardware failure, femur fracture, need for future surgery, dislocation, and risks of anesthesia. They accepted all the risks and expressed understanding and wished to go forward with surgery. Surgeon: Braulio Oh Learning And Development Specialist: Ana Hurst Anesthesia Type: General Operative Notes Findings: Left femoral neck fracture as seen on imaging and under direct visualization Closure Type: primary Specimen(s): none sent Prosthetic devices, grafts, tissues, transplants, or devices: Topete and nephew size 10 stem, cemented, size 41 unipolar head. Centralizer. Estimated Blood Loss (mL): 50 Blood products transfused: none Procedure in detail: Patient was identified in the preoperative holding area. The correct left hip was marked with my initials. Risks were again discussed. The patient was then brought to the operating room. A surgical pause was done confirming the correct site of surgery. The patient was given perioperative IV antibiotics followed by induction of general anesthesia. Patient was placed in the lateral decubitus position with hip process cheese cooker positioners. An axillary roll was placed. The left hip and lower extremity were then prepped and draped in a standard sterile fashion. Posterolateral skin incision was made centered over the greater trochanter. Dissection was carried down to the fascia cedric and a Mccall was used to define the plane of tissue. The fascia was then incised in line with the skin incision over the greater trochanter. A Charnley retractor was placed. The trochanter bursa was then resected. The leg was internally rotated and the capsule and short external rotators were put on tension. They were then released in line with the piriformis tendon as a single sleeve in an L-shaped fashion and this was tagged with a #5 Ethibond suture for later repair. The upper part of the quadratus femoris insertion on the femur was released. The hip was then dislocated. With the thigh parallel to the ground and the leg perpendicular to the ground at 90?, a femoral neck cut was done and then the femoral head was removed from the acetabulum. A Perez retractor was placed under the neck, and a narrow Cobra was placed into the lesser trochanter. The [employer] cutter and canal Finder were then used followed by the lateralizer. Broaching was commenced. Trialing was then done and the hip was felt to be stable. Once satisfactory sizing was confirmed a centralized plug was inserted and the canal was lavaged and dried. Cement was inserted and pressurized. The final implant was then inserted with just a few degrees of additional anteversion from the upper mattaponi version. Retrialing was done and the final bipolar head/neck construct was inserted. The hip was again taken through range of motion. Implant was stable at 90? of hip flexion all the way to 60? of internal rotation. Leg lengths were equal based on tibial tubercle palpation. The wounds were irrigated. Capsule was repaired through 2 drill holes in the greater trochanter. Fascia was closed with Quill and then the subcutaneous tissue was closed with Vicryl followed by skin gricelda and sterile dressings. Patient tolerated the procedure well without complications. Assisting participation: This operation could not have been safely performed (without compromising the technical results or length of the procedure) without the assistance of a skilled neurosurgical nurse practitioner. The neurosurgical nurse practitioner was medically necessary for proper positioning, retraction and handlingof instruments, proper exposure, and manipulation of tissue. Complications: none Post-operative Condition: stable Disposition: PACU Plan for aftercare: Postop instructions: Patient may weightbear as tolerated on postoperative day 1. Hip precautions to remain in place. No flexion adduction and internal rotation. Patient may shower over the dressing. If water gets underneath the dressing, please remove the dressing completely and ensure that the incision is completely dry. Otherwise, the dressing will come off on at the 1st postoperative visit in 2 weeks. I recommend aspirin, 81 mg b.i.d. for 4 weeks unless they are already on an anticoagulant or aspirin is not tolerated, if this is the case then Lovenox 40 mg subcutaneous for 4 weeks can be used for DVT prophylaxis.
--- NOTE | 2022-06-29 22:07 | DI.RAD.S_ITS ---
PROCEDURE: XR PELVIS 1-2V INDICATIONS: POST OP TOTAL LEFT HIP TECHNIQUE: Single-view of the pelvis acquired. COMPARISON: [facility], CR, XR HIP W PEL IF DONE LT 2V, 06/28/2022, 16:10. FINDINGS: Bones: There are postsurgical changes status post interval placement of a left hip arthroplasty. There is expected alignment. No periprosthetic fractures or suspicious lucencies. Soft tissues: Visualized bowel gas pattern is normal. No suspicious soft tissue calcifications. There are postsurgical changes with multiple skin gricelda laterally. IMPRESSION: 1. Interval left hip arthroplasty. No definite periprosthetic fracture. Dictated by: Henry Mabry M.D. on 06/30/2022 at 1:30 Approved by: Henry Mabry M.D. on 06/30/2022 at 1:31
--- NOTE | 2022-06-29 22:22 | SUR.PHASEI ---
Arterial blood pressure 89/33; map 53
[2022-06-29] MEDS: LACTATED RINGERS 1,000 ML 42 ML IV ×2 (22:29→22:31)
--- NOTE | 2022-06-29 22:46 | SUR.PHASEI ---
Arterial line to right wrist discontinued by PROP SAWYER; pressure dressing applied; no complications.
--- NOTE | 2022-06-29 22:50 | SUR.PHASEI ---
Patient denies pain, nausea or SOB; GCS 15 and following all commands.
--- NOTE | 2022-06-29 23:00 | SUR.PHASEI ---
Blood pressure improved at 125/52, MAP 65; HR 72.
[2022-06-30] VITALS (15 sets, daily range): BP systolic 91–123; BP diastolic 35–49; PULSE 72–82; RESP 15–20; TEMP 35.7–37.2; O2SAT 92–99
[2022-06-30] MEDS: LACTATED RINGERS 1,000 ML 42 ML IV (00:16)
[2022-06-30] MEDS: ASPIRIN EC 81 MG TABLET PO ×3 (00:52→20:47)
--- NOTE | 2022-06-30 03:37 | PC.NURSE ---
[employer] Contacted communications senior associate surgeon provider Dr Oh, updated provider on Pt O2 levels below 90% with NC at 5 liters, Respiratory Therapy assessed and fitted Pt with Oximask at 5Liters and Pt is now stating at 95%. Provider also updated on Pt low BP 90's (sys) /50-60's (calixto) map in 65-70's. Pt had recent history of NSTEMI in May 2021, Pt placed on Tele. Pt denies any pain, or nausea at this time.
[2022-06-30 05:05] LABS: Add Manual Diff / Slide Review NO; Basophils Absolute Auto 100 /uL (0-100); Basophils Percent Auto 0.6 % (0-2); Eosinophils Absolute Auto 0 /uL (0-450); Eosinophils Percent Auto 0.2 % (2-4); Hematocrit 34.7 % (36-46); Hemoglobin 11.3 g/dL (12.0-16.0); Lymphocytes Absolute Auto 300 /uL (1100-4500); Lymphocytes Percent Auto 2.5 % (25-40); Mean Corpuscular HGB Conc 32.7 % (30-36); Mean Corpuscular Hemoglobin 28.7 PG (26-34); Mean Corpuscular Volume 87.9 fL (80-100); Monocytes Absolute Auto 400 /uL (0-900); Neutrophils Absolute Auto 12500 /uL (1500-7000); Neutrophils Percent Auto 93.7 % (50-75); Platelet Count 216 X10^3/uL (150-400); Red Blood Cell Count 3.95 X10^6/uL (4.0-5.2); Red Cell Distribution Width 14.6 % (11.6-14.8); White Blood Cell Count 13.3 X10^3/uL (4.5-11.0)
[2022-06-30 05:18] LABS: BUN Creatinine Ratio 19.3 (6-22); Blood Urea Nitrogen 17 mg/dL (7-17); Calcium 8.1 mg/dL (8.4-10.2); Carbon Dioxide 25 mmol/L (22-32); Chloride 102 mmol/L (98-107); Estimated Glomerular Filt Rate > 60 mL/min (>60); Glucose 175 mg/dL (80-110); HEMOLYSIS < 15 (0-50); Potassium 4.1 mmol/L (3.4-5.1); Sodium 134 mmol/L (137-145)
[2022-06-30] MEDS: LEVOTHYROXINE 125 MCG TABLET 100 MCG PO (06:20)
[2022-06-30] MEDS: SODIUM CHLORIDE 0.9% FLUSH 10 ML IV ×2 (09:00→20:47)
[2022-06-30] MEDS: PANTOPRAZOLE DR 40 MG TABLET PO (09:15)
[2022-06-30] MEDS: FLUoxetine 20 MG CAPSULE 40 MG PO (09:16)
[2022-06-30] MEDS: OXYCODONE IR 5 MG TABLET PO (09:16)
[2022-06-30] MEDS: guaiFENesin ER 600 MG TAB PO (09:16)
--- NOTE | 2022-06-30 09:49 | PM.PNPO.1 ---
Subjective Subjective Date Patient Seen: 06/30/22 Time Patient Seen: 09:49 Interval history: Sitting up in bed comfortably, surgery completed late last night, has not worked w/ PT since surgery. Exam Vital Signs (past 8 hours): - 06/30/22 04:05 06/30/22 08:45 06/30/22 09:01 Temperature 96.3 F L Pulse Rate 72 Respiratory Rate 16 Blood Pressure 91/43 L Pulse Oximetry 99 95 95 Oxygen Delivery Method Oximask Nasal Cannula Oxygen Flow Rate 5 4 2 06/30/22 07:30 Temperature 97.2 F L Pulse Rate 73 Respiratory Rate 18 Blood Pressure 97/42 L Pulse Oximetry 99 Oxygen Delivery Method Oxygen Flow Rate 4 Oxygen Delivery Method Nasal Cannula Oxygen Flow Rate 2 Narrative Exam Narrative: 5/5 DF, PF, EHL, quadriceps, hamstrings. Calves soft, compressible, nontender. Aquacel dressing CDI. Objective Labs Result Diagrams: 06/30/22 04:37 06/30/22 04:37 Labs: Laboratory Results - last 24 hr 06/30/22 06/30/22 04:37 04:37 WBC 13.3 H RBC 3.95 L Hgb 11.3 L Hct 34.7 L MCV 87.9 MCH 28.7 MCHC 32.7 RDW 14.6 Plt Count 216 Neut % (Auto) 93.7 H Lymph % (Auto) 2.5 L [place] % (Auto) 3.0 Eos % (Auto) 0.2 L Baso % (Auto) 0.6 Neut # (Auto) 84869 H Lymph # (Auto) 300 L [place] # (Auto) 400 Eos # (Auto) 0 Baso # (Auto) 100 Sodium 134 L Potassium 4.1 Chloride 102 Carbon Dioxide 25 BUN 17 Creatinine 0.88 Estimated GFR > 60 BUN/Creatinine Ratio 19.3 Glucose 175 H Calcium 8.1 L PFSH Medical History Fibromyalgia Hypertension Hypothyroidism Restrictive lung disease Surgical History No pertinent past surgical history Social History household members: significant other Smoking Status: Former smoker alcohol intake: current substance use type: does not use Assessment & Plan Post-op Assessment and plan (1) Status post hip surgery: Assessment and Plan narrative: 1) Weightbearing as tolerated LLE. Posterior hip precautions (no flexion w/ adduction and internal rotation). 2) Patient may shower over the dressing.? If water gets underneath the dressing, please remove the dressing completely and ensure that the incision is completely dry.? Otherwise, the dressing will come off on at the 1st postoperative visit in 2 weeks.? 3) Aspirin, 81 mg b.i.d. for 4 weeks for DVT prophylaxis. 4) F/u w/ PA in ortho clinic in 2 weeks for wound check/staple removal. F/u w/ Dr Oh in 6 weeks for xrays and review of progress. Postoperative Procedures: Procedures Operation Date: 06/29/22 18:00 Actual Procedure Side Surgeon p Hip Hemiarthroplasty Joe Left Braulio Oh MD Postoperative day: 1 Quality VTE Deep Vein Thrombosis/Pulmonary Embolism Present on Admission: No
--- NOTE | 2022-06-30 09:51 | PT.IIE ---
Current Diagnoses Fracture of unspecified part of neck of left femur, initial encounter for closed fracture (06/28/22) Other specified postprocedural states (06/28/22) Surgery Performed Operation Date: 06/29/22 18:00 Actual Procedures p Hip Hemiarthroplasty Joe(Left) - Braulio Oh MD Surgical History (Last Reviewed 06/29/22 @ 12:05 by Braulio Oh MD) No pertinent past surgical history Medical History (Last Reviewed 06/29/22 @ 12:05 by Braulio Oh MD) Fibromyalgia Hypertension Hypothyroidism Restrictive lung disease Physical Therapy Inpatient Evaluation/Re-Eval M1 PT/OT-IP Prior Functional Status Start: 06/30/22 12:47 Freq: NEEDED Status: Active Protocol: Document 06/30/22 09:51 AB (Rec: 06/30/22 13:04 AB [email or web address]) Medical Review Prior Functional Status Medical History Reviewed Yes Communication able to make needs known but gets easily distracted Mobility and Gait pt stated that she is independent with all mobilities and ambulation without AD but has h/o falls Prior Functional Level (Other details) pt stated that she just recently have a heart attack and since then, is not able to ambulate as far as before and gets tired easily Social History Household Members significant other Living Arrangements House Number of Floors (Floors) One Floor Number of Stairs To Enter/Railing? ramp to enter Home Environment Standard Height Toilet,Walk in Shower,Tub/Shower Home Equipment Front Wheel Walker,Four Wheel Walker,Raised Toilet Seat Without Armrests,Tub Transfer Bench,Shower Seat without Backrest,Hand Held Shower Additional Social History Comment pt stated that she sponge bathes M2 PT-IP Current Condition Start: 06/30/22 12:47 Freq: NEEDED Status: Active Protocol: Document 06/30/22 09:51 AB (Rec: 06/30/22 13:04 AB [email or web address]) Physical Therapy Current Condition Current Condition Evaluation Date 06/30/22 Treatment Diagnosis L femoral fx s/p L hemiarthroplasty; difficulty in walking Onset Date 06/28/22 M3 PT-IP Subjective Start: 06/30/22 12:47 Freq: NEEDED Status: Active Protocol: Document 06/30/22 09:51 AB (Rec: 06/30/22 13:04 AB [email or web address]) Subjective Physical Therapy Visit Type Type Initial Evaluation Visit Start Time 09:51 Visit Stop Time 10:50 Total Visit Minutes 59 Number of 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 Visits 0 Physical Therapy Visit Comments Patient Comments agreeable to do PT Therapy Pain Assessment Pain When Pain Assessed At Rest Pain Present Pain Present Pain Reported Location Left hip Intensity 4 Scale Used increases to 6/10 during mobility Pain Management Techniques Distraction,Modification of Treatment,Re-positioning, Timing of Activity with Medications M4 PT-IP Mobility and Gait Start: 06/30/22 12:47 Freq: NEEDED Status: Active Protocol: Document 06/30/22 09:51 AB (Rec: 06/30/22 13:04 AB [id number]) PT-Bed Mobility Assessment Supine to Sit Supine to Sit Minimal Assistance PT-Transfer Assessment Sit to and From Stand Sit to and from Stand Minimal Assistance,1 Person Assistance,Use of Upper Extremities Equipment Transfer Assistive Device Gait Belt,Front Wheeled Walker Orthotic/Prosthetic Devices or Brace: No Transfers Transfer Destination Chair Transfer Technique Stand Step Pivot Transfer Ability Level of Assist Minimal Assistance,1 Person Assistance,Use of Upper Extremities Comments Mobility Comments Found pt supine in bed. Nasal cannula on but not attached to O2. asked nurse if pt is needing to be on O2 and per RT to have it off at this time. asked nurse regarding O2 if O2 sat decrease and stated to give pt 2L/min O2. O2 sat at room air supine in bed: 93-94% . educated pt on hip precautions . pt requires cues to recall. pt is also impulsive and requires cues with all tasks for safety. BP in supine: 112/42. pt complete supine to sit min A and max cues. able to sit on EOB SBA. BP checked: 107/40. O2 sat decreased to 90%. O2 @ 2L/min provided. O2 sat increased to 93%. completed sit to stand min A and completed step transfer to chair using FWW min A. (+) SOB. O2 sat checked: 89%. cued for deep breathing and O2 sat increased to 93%. BP checked after transfer sitting on chair: 109/36. positioned pt on chair. call light and table placed within reach. informed nurse regarding o2 sat and BP. deferred ambulation at this time due to decrease O2 sat and low BP. PT-Balance Assessment Sitting Balance and Reactions Static Sitting Balance Ability Good Dynamic Sitting Balance Ability Good Standing Balance and Reactions Static Standing Balance Ability Fair Dynamic Standing Balance Ability Fair Device Used FWW M5 PT-IP Objective Assessments Start: 06/30/22 12:47 Freq: NEEDED Status: Active Protocol: Document 06/30/22 09:51 AB (Rec: 06/30/22 13:04 AB [id number]) Orientation Orientation/Cognition Level of Alertness Confusional State Orientation Name,Place,Situation Safety Awareness Decreased Safety Awareness Memory Description Short Term Impaired Strength Lower Extremity Strength Assessment Left Impaired Hip 3-/5 Knee 3+/5 Muscle Tone Muscle Tone WNL Yes M6 PT-IP Treatment Start: 06/30/22 12:47 Freq: NEEDED Status: Active Protocol: Document 06/30/22 09:51 AB (Rec: 06/30/22 13:04 AB [id number]) Physical Therapy Treatment Education Education Provided Precautions,Weight Bearing Status,Post-Op Packet,Safety M7 PT-IP Assessment and Plan Start: 06/30/22 12:47 Freq: NEEDED Status: Active Protocol: Document 06/30/22 09:51 AB (Rec: 06/30/22 13:04 AB [email or web address]) PT Summary Assessment and Plan Potential Rehabilitation Potential Fair Status of Condition at Evaluation Evolving Summary Impairments Pain,ROM,Strength,Balance, Coordination,Sensation,Tone, Cognition,Bed Mobility, Transfers,Gait,Activity Tolerance Assessment Summary pt requiring min A with transfers using FWW but max cues with all tasks. Pt also presents with decrease O2 sat with activity and also has low BP affecting mobility and activity tolerance. d/c plan depending on progress but at this time will require SNF rehab. will continue to assess progress. Goals Bed Mobility Goal Standby Assistance Transfer Goal Standby Assistance,Front Wheeled Walker Gait Goal Standby Assistance,Front Wheel Walker Gait Distance 150 Days to Meet Goals 10 Frequency of Treatment Frequency Of Treatment Twice a Day Treatment Plan Physical Therapy Treatment Plan Bed Mobility Training,Transfer Training,Gait Training, Therapeutic Exercise,Balance Retraining,Post Op Education, Discharge Planning,Hot or Cold Pack,Neuromuscular Re-ed, Coordination Retraining,Manual Therapy Precautions Posterior Hip Precautions No Hip Flexion > 90 degrees,No Hip Internal Rotation,No Hip Adduction Weight Bearing Status Weight Bearing Status Weight Bear as Tolerated Allowed Weight Bearing Amount (enter % LLE WBAT or #) (%) Recommendations To Nursing Amount of Assist Needed 1 Person Assist Discharge Recommendations PT Discharge Recommendations Home with 11/02 Assist Available,Home Health,SNF Rehab,Home vs SNF Transportation Needs at Discharge Private Vehicle,Wheelchair/ Cabulance
[2022-06-30] MEDS: HYDROMORPHONE 0.5 MG INJ IV ×2 (10:55→18:39)
--- NOTE | 2022-06-30 12:45 | CM.DPC ---
Addendum entered by SINGH Martin 06/30/22 15:21: ADD: Per PT, pt did better with PM session and set up CG training with [facility] for tomorrow and anticipates pt will be able to d/c home with assist and HH. Pt still requiring oxygen and may need at d/c as well. [facility] does not have PT availability in [place] until 07/13 and [facility] does not cover [facility]. SW made initial referral to [facility] and faxed clinicals to review and F2F completed but not faxed yet. Plan: SW to follow tomorrow after CG training to confirm home with new [facility] referral and to fax F2F, HH orders, and d/c summ to [facility] at discharge. BF Original Note: DCP HH vs SNF planning Per Ortho and MD, pt seemed to tolerate surgery well last night and now to work with PT today to determine d/c needs. Pt remains on oxygen at this time. Per PT, limited today due to oxygen sats dropping to 79% with exertion and ortho static issues with bp and therefore did not ambulate yet but pt was able to stand and transfer. HH vs SNF pending progress and pt would benefit from some CG training. SW met bedside with pt and explained role and pt confirms that her Partner Yovani is a retired [employer] RN who also was the CG for his two prior wives who both from cancer and therefore he is a skilled CG and available to assist at d/c. Pt agreeable with partner coming in for CG training with PT and states she has already asked him to come in. Pt states he likely has undiagnosed personality disorder and can be an asshole sometimes but he loves me dearly and will help with whatever is needed. Pt denies any hx of HH or SNF but states she has some DME at home from her own mother. Pt is hopeful for home with [facility] assist and would be willing to consider HH or SNF if needed. Plan: SW to follow for further PT and CG training with [facility] towards determining HH vs SNF at d/c. SINGH Martin
--- NOTE | 2022-06-30 13:45 | PT.IPTN ---
Current Diagnoses Fracture of unspecified part of neck of left femur, initial encounter for closed fracture (06/28/22) Other specified postprocedural states (06/28/22) Surgery Performed Operation Date: 06/29/22 18:00 Actual Procedures p Hip Hemiarthroplasty Joe(Left) - Braulio Oh MD Physical Therapy Treatment Note M2 PT-IP Current Condition Start: 06/30/22 12:47 Freq: NEEDED Status: Active Protocol: Document 06/30/22 09:51 AB (Rec: 06/30/22 13:04 AB [email or web address]) Physical Therapy Current Condition Current Condition Evaluation Date 06/30/22 Treatment Diagnosis L femoral fx s/p L hemiarthroplasty; difficulty in walking Onset Date 06/28/22 M3 PT-IP Subjective Start: 06/30/22 12:47 Freq: NEEDED Status: Active Protocol: Document 06/30/22 13:45 AB (Rec: 06/30/22 16:21 AB [email or web address]) Subjective Physical Therapy Visit Type Type Treatment Note Visit Start Time 13:45 Visit Stop Time 14:10 Total Visit Minutes 25 Number of [employer] C DEVELOPER Visits 0 Physical Therapy Visit Comments Patient Comments agreeable to do PT Therapy Pain Assessment Pain When Pain Assessed At Rest Pain Present Pain Present Pain Reported Location Left hip Intensity 5 Scale Used Numeric (0 - 10) Pain Management Techniques Modification of Treatment,Re- positioning,Timing of Activity with Medications M4 PT-IP Mobility and Gait Start: 06/30/22 12:47 Freq: NEEDED Status: Active Protocol: Document 06/30/22 13:45 AB (Rec: 06/30/22 16:21 AB [email or web address]) PT-Transfer Assessment Sit to and From Stand Sit to and from Stand Minimal Assistance,1 Person Assistance,Use of Upper Extremities Equipment Transfer Assistive Device Gait Belt,Front Wheeled Walker Orthotic/Prosthetic Devices or Brace: No Comments Mobility Comments pt sitting on chair and agreeable to do PT. BP in sitting 106/46 O2 sat with 2L /min O2 : 96%. pt completed sit to stand min A and ambulated in room ~ 25 ft using FWW. sat back on chair. continues to require cues for hip precautions BP checked: 114/35 O2 sat 92%. pt asymptomatic. pt rested. BP checked again: 115/43 O2 sat 95%. agreed to ambulate again and completed sit to stand min A and ambulated ~ 35 ft in room using FWW min A. pt wants to stay up on the chair. BP checked again: 120/43 O2 sat 93%. positioned pt on the chair. call light and table placed within reach. Gait Assessment Gait Gait Assistance Required: Minimum Assistance Distance (Feet) 35 Able to Maintain Weight Bearing Status Yes During Gait Assistive Devices Assistive Device Gait Belt,Front Wheeled Walker Orthotic/Prosthetic Devices or Brace: No Gait Deviations General Gait Pattern Antalgic,Decreased Stride Length,Decreased Feet Clearance,Step-to Gait Factors Limiting Gait Function Factors Limiting Gait Function Decreased Activity Tolerance, Decreased Strength,Limited Range of Motion,Pain,Poor Balance,Poor Safety Awareness M5 PT-IP Objective Assessments Start: 06/30/22 12:47 Freq: NEEDED Status: Active Protocol: Document 06/30/22 09:51 AB (Rec: 06/30/22 13:04 AB [email or web address]) Orientation Orientation/Cognition Level of Alertness Confusional State Orientation Name,Place,Situation Safety Awareness Decreased Safety Awareness Memory Description Short Term Impaired Strength Lower Extremity Strength Assessment Left Impaired Hip 3-/5 Knee 3+/5 Muscle Tone Muscle Tone WNL Yes M6 PT-IP Treatment Start: 06/30/22 12:47 Freq: NEEDED Status: Active Protocol: Document 06/30/22 13:45 AB (Rec: 06/30/22 16:21 AB [email or web address]) Physical Therapy Treatment Education Education Provided Precautions,Weight Bearing Status,Safety M7 PT-IP Assessment and Plan Start: 06/30/22 12:47 Freq: NEEDED Status: Active Protocol: Document 06/30/22 13:45 AB (Rec: 06/30/22 16:21 AB [email or web address]) PT Summary Assessment and Plan Potential Rehabilitation Potential Good Summary Impairments Pain,ROM,Strength,Balance, Coordination,Sensation,Tone, Cognition,Bed Mobility, Transfers,Gait,Activity Tolerance Progress Towards Goals Slow Progress due to Pain,Slow Progress due to Medical Issues,Slow Progress due to Activity Tolerance Assessment Summary pt progressing slowly with mobility and able to ambulate this afternoon using FWW min A but continues to require cues and needing O2 to maintain O2 sat >90%. pt also continues to have low BP but does not c/ o dizziness/lightheadedness but with increase tremors. Caregiver training set up for tomorrow at 1030am. will continue to assess progress. Goals Bed Mobility Goal Standby Assistance Transfer Goal Standby Assistance,Front Wheeled Walker Gait Goal Standby Assistance,Front Wheel Walker Gait Distance 150 Days to Meet Goals 10 Frequency of Treatment Frequency Of Treatment Twice a Day Treatment Plan Physical Therapy Treatment Plan Bed Mobility Training,Transfer Training,Gait Training, Therapeutic Exercise,Balance Retraining,Post Op Education, Discharge Planning,Hot or Cold Pack,Neuromuscular Re-ed, Coordination Retraining,Manual Therapy Precautions Posterior Hip Precautions No Hip Flexion > 90 degrees,No Hip Internal Rotation,No Hip Adduction Weight Bearing Status Weight Bearing Status Weight Bear as Tolerated Allowed Weight Bearing Amount (enter % LLE WBAT or #) (%) Recommendations To Nursing Amount of Assist Needed 1 Person Assist Discharge Recommendations PT Discharge Recommendations Home with 11/02 Assist Available,Home Health Transportation Needs at Discharge Private Vehicle,Wheelchair/ Cabulance
--- NOTE | 2022-06-30 14:03 | P.PN_ITS ---
Subjective Subjective Interval history: 72-year-old female with idiopathic pulmonary fibrosis, hypertension, hypo thyroidism, fibromyalgia, and ascending aortic aneurysm who was admitted after a fall with an acute left femoral neck fracture. She is presently postoperative day 1 from left hip hemiarthroplasty. Patient reports she is feeling fairly well today. She is not been any significant shortness of breath. She is having pain in her hip. She just worked with physical therapy and states she was able to ambulate fairly well overall. Her hope is to be able to go home at discharge. Exam Vital Signs (past 8 hours): - 06/30/22 08:45 06/30/22 09:01 06/30/22 07:30 Temperature 97.2 F L Pulse Rate 73 Respiratory Rate 18 Blood Pressure 97/42 L Pulse Oximetry 95 95 99 Oxygen Delivery Method Oximask Nasal Cannula Oxygen Flow Rate 4 2 4 06/30/22 11:00 06/30/22 08:00 06/30/22 08:00 Temperature Pulse Rate 77 Respiratory Rate 20 Blood Pressure 99/39 L Pulse Oximetry 96 94 Oxygen Delivery Method Room Air Nasal Cannula Nasal Cannula Oxygen Flow Rate 2 2 06/30/22 12:00 Temperature Pulse Rate 82 Respiratory Rate 18 Blood Pressure 117/39 L Pulse Oximetry 96 Oxygen Delivery Method Oxygen Flow Rate 2 Oxygen Delivery Method Nasal Cannula Oxygen Flow Rate 2 Narrative Exam Narrative: GEN: Alert and oriented x 3, NAD HEENT:NC, Face symmetric CHEST: Respiratory excursions symmetric, coarse but CTAB CV: RRR, no M/R/G ABD: Soft, NT/ND, BT present in all 4 quadrants, no organomegaly or masses EXTR: warm, well perfused, no C/C/E SKIN: warm and dry, no rash NEURO: Alert and oriented x 3, nonfocal Objective Labs Result Diagrams: 06/30/22 04:37 06/30/22 04:37 Labs: Laboratory Results - last 24 hr 06/30/22 06/30/22 04:37 04:37 WBC 13.3 H RBC 3.95 L Hgb 11.3 L Hct 34.7 L MCV 87.9 MCH 28.7 MCHC 32.7 RDW 14.6 Plt Count 216 Neut % (Auto) 93.7 H Lymph % (Auto) 2.5 L [place] % (Auto) 3.0 Eos % (Auto) 0.2 L Baso % (Auto) 0.6 Neut # (Auto) 16769 H Lymph # (Auto) 300 L [place] # (Auto) 400 Eos # (Auto) 0 Baso # (Auto) 100 Sodium 134 L Potassium 4.1 Chloride 102 Carbon Dioxide 25 BUN 17 Creatinine 0.88 Estimated GFR > 60 BUN/Creatinine Ratio 19.3 Glucose 175 H Calcium 8.1 L [facility] Medical History Fibromyalgia Hypertension Hypothyroidism Restrictive lung disease Surgical History No pertinent past surgical history Social History household members: significant other Smoking Status: Former smoker alcohol intake: current substance use type: does not use Assessment & Plan Assessment & Plan narrative: 1. Postoperative day 1 from left hip hemiarthroplasty for left femoral neck fracture Appreciate management per Orthopedic surgery. Work on mobilization and pain control. 2. Acute hypoxic respiratory failure Postoperatively, patient did require 5 L of oxygen via nasal cannula. At baseline she does not require oxygen. Patient has known idiopathic pulmonary fibrosis. She was initially treated with IV furosemide. O2 need is now down to 2 liters/minute. Will continue to monitor. Etiology is not entirely clear, but could be related to underlying lung disease and anesthesia for surgery. No clear evidence of aspiration. 3. Ascending aortic aneurysm Measuring 6.4 cm. She will need close follow-up. She is on metoprolol for blood pressure control. 4. Elevated troponin Patient reportedly had an NSTEMI at the end of May. Troponin was 0.050, down trending to 0.041. It likely to be cardiac demand ischemia. 5. Idiopathic pulmonary fibrosis She is not on any outpatient medications or inhalers. 6. Fibromyalgia with chronic pain syndrome Patient takes fentanyl 75 mcg Q 72 hours. She is due for a patch changed today. This will be accomplished 7. Depression Continue outpatient dose of Lamictal. She also uses diazepam at bedtime for sleep. 8. Hypothyroidism Continue levothyroxine 9. Oliguria Patient was diuresed yesterday. She is now having minimal urine output. Suspect she is a bit hypovolemic. Will give a fluid bolus and monitor. Code status Full Prophylaxis Will start Lovenox Disposition Pending Time Spent With Patient Critical Care time: I spent a total of [] minutes of critical care time on this patient's care today; this time is exclusive of procedural time. Quality VTE Deep Vein Thrombosis/Pulmonary Embolism Present on Admission: No
[2022-06-30] MEDS: lamoTRIgine 100 MG TABLET 50 MG PO (14:37)
[2022-06-30] MEDS: OXYCODONE IR 5 MG TABLET 10 MG PO ×2 (14:38→19:57)
[2022-06-30] MEDS: SODIUM CHLORIDE 0.9% 500 ML 1000 ML IV ×2 (14:46→19:58)
[2022-06-30] MEDS: SENNOSIDES 8.6 MG TABLET PO (20:47)
[2022-06-30] MEDS: METOPROLOL IR 50 MG TABLET PO (20:47)
[2022-06-30] MEDS: lamoTRIgine 100 MG TABLET PO (20:47)
--- NOTE | 2022-06-30 22:19 | PC.NURSE ---
Addendum entered by Effie Gomez R.N. 07/01/22 05:23: UOP only 125cc this shift. Dr Calvo informed and stated he would wait and see what renal function is this morning and pass the information on to the morning hospitalist. Original Note: Patient is alert and oriented. Breath sounds CTA but remains on oxygen. Was receiving oxygen at 1L/min per NC at start of shift but when falling asleep or with activity she drops down into 80's so is currently on 2L/min oxygen. HRR w/telemetry reading of SR. Denies nausea. BT present and is passing flatus. Indwelling catheter is patent; has had low urine output today and received a 2nd fluid bolus at start of shift. Is able to move herself in bed but offered assistance if she needs it. Aquacel dressing to left hip is intact with 2 small areas of shadow drainage. Denies tingling/numbness but has difficulty lifting leg off bed. Trace edema present in left LE. Is wearing bilateral calf SCD's. Did complain of left hip pain and was medicated with oxycodone and ice pack applied. Fall risk score is high and bed alarm is activated.
[2022-07-01] VITALS (7 sets, daily range): BP systolic 100–112; BP diastolic 31–49; PULSE 55–68; RESP 16–21; TEMP 36.8–37.2; O2SAT 94–99
[2022-07-01] MEDS: MELOXICAM 7.5 MG TABLET PO (00:07)
[2022-07-01] MEDS: OXYCODONE IR 5 MG TABLET PO ×3 (00:07→20:18)
[2022-07-01 05:27] LABS: Add Manual Diff / Slide Review NO; Basophils Absolute Auto 0 /uL (0-100); Basophils Percent Auto 0.2 % (0-2); Eosinophils Absolute Auto 600 /uL (0-450); Eosinophils Percent Auto 5.6 % (2-4); Hematocrit 30.3 % (36-46); Hemoglobin 9.9 g/dL (12.0-16.0); Lymphocytes Absolute Auto 1300 /uL (1100-4500); Lymphocytes Percent Auto 12.8 % (25-40); Mean Corpuscular HGB Conc 32.5 % (30-36); Mean Corpuscular Hemoglobin 28.6 PG (26-34); Mean Corpuscular Volume 88.1 fL (80-100); Monocytes Absolute Auto 1000 /uL (0-900); Monocytes Percent Auto 9.4 % (3-14); Neutrophils Absolute Auto 7500 /uL (1500-7000); Platelet Count 203 X10^3/uL (150-400); Red Blood Cell Count 3.44 X10^6/uL (4.0-5.2); Red Cell Distribution Width 14.7 % (11.6-14.8); White Blood Cell Count 10.4 X10^3/uL (4.5-11.0)
[2022-07-01 05:36] LABS: BUN Creatinine Ratio 21.3 (6-22); Blood Urea Nitrogen 19 mg/dL (7-17); Calcium 7.8 mg/dL (8.4-10.2); Carbon Dioxide 27 mmol/L (22-32); Chloride 99 mmol/L (98-107); Estimated Glomerular Filt Rate > 60 mL/min (>60); Glucose 132 mg/dL (80-110); HEMOLYSIS < 15 (0-50); Potassium 3.9 mmol/L (3.4-5.1); Sodium 132 mmol/L (137-145)
--- NOTE | 2022-07-01 05:51 | P.PN_ITS ---
Subjective Subjective Interval history: 72-year-old female with idiopathic pulmonary fibrosis, hypertension, hypo thyroidism, fibromyalgia, and ascending aortic aneurysm who was admitted after a fall with an acute left femoral neck fracture.? She is presently postoperative day 1 from left hip hemiarthroplasty. Patient reports she is feeling fairly well today.? She is not been any significant shortness of breath.? She is having pain in her hip.? She really hopes to be able to go home. Urine output has remained diminished. She states she is not a very good fluid drinker and has had 1-1/2 cups of water and 3 [place] sodas today. Urine output remains 125 cc. Exam Vital Signs (past 8 hours): - 06/30/22 23:31 06/30/22 23:38 07/01/22 00:03 Temperature 98.9 F Pulse Rate 65 Respiratory Rate 16 Blood Pressure 112/49 L Pulse Oximetry 94 95 Oxygen Delivery Method Nasal Cannula Nasal Cannula Oxygen Flow Rate 2 1 2 Fraction of Inspired Oxygen 93 07/01/22 04:35 07/01/22 04:35 Temperature 98.2 F Pulse Rate 57 L Respiratory Rate 17 Blood Pressure 110/40 L Pulse Oximetry 99 99 Oxygen Delivery Method Nasal Cannula Oxygen Flow Rate 2 2 Fraction of Inspired Oxygen Fraction of Inspired Oxygen 93 Oxygen Delivery Method Nasal Cannula Oxygen Flow Rate 2 Narrative Exam Narrative: GEN: Alert and oriented x 3, NAD HEENT:NC, Face symmetric CHEST: Respiratory excursions symmetric, coarse but CTAB CV: RRR, no M/R/G ABD: Soft, NT/ND, BT present in all 4 quadrants, no organomegaly or masses EXTR: warm, well perfused, no C/C/E SKIN: warm and dry, no rash NEURO: Alert and oriented x 3, nonfocal Objective Labs Result Diagrams: 07/01/22 04:44 07/01/22 04:44 Labs: Laboratory Results - last 24 hr 07/01/22 07/01/22 04:44 04:44 WBC 10.4 RBC 3.44 L Hgb 9.9 L Hct 30.3 L MCV 88.1 MCH 28.6 MCHC 32.5 RDW 14.7 Plt Count 203 Neut % (Auto) 72.0 D Lymph % (Auto) 12.8 L [place] % (Auto) 9.4 Eos % (Auto) 5.6 H Baso % (Auto) 0.2 Neut # (Auto) 7500 H Lymph # (Auto) 1300 [place] # (Auto) 1000 H Eos # (Auto) 600 H Baso # (Auto) 0 Sodium 132 L Potassium 3.9 Chloride 99 Carbon Dioxide 27 BUN 19 H Creatinine 0.89 Estimated GFR > 60 BUN/Creatinine Ratio 21.3 Glucose 132 H Calcium 7.8 L PFSH Medical History Fibromyalgia Hypertension Hypothyroidism Restrictive lung disease Surgical History No pertinent past surgical history Social History household members: significant other Smoking Status: Former smoker alcohol intake: current substance use type: does not use Assessment & Plan Assessment & Plan narrative: 1. Postoperative day 2 from left hip hemiarthroplasty for left femoral neck fracture Appreciate management per Orthopedic surgery.? Work on mobilization and pain control. Patient's goal is to return home with home health. Her partner is a [employer]IST[employer] and she feels confident they will be successful at home. 2. Acute hypoxic respiratory failure Postoperatively, patient did require 5 L of oxygen via nasal cannula.? At baseline she does not require oxygen.? Patient has known idiopathic pulmonary fibrosis.? She was initially treated with IV furosemide.? O2 need is now down to 2 liters/minute.? Will continue to monitor.? Etiology is not entirely clear, but could be related to underlying lung disease and anesthesia for surgery.? No clear evidence of aspiration. Will have RT perform a desat study. 3. Ascending aortic aneurysm Measuring 6.4 cm.? She will need close follow-up.? She is on metoprolol for blood pressure control. 4. Elevated troponin Patient reportedly had an NSTEMI at the end of May.? Troponin was 0.050, down trending to 0.041.? It likely to be cardiac demand ischemia. 5. Idiopathic pulmonary fibrosis She is not on any outpatient medications or inhalers. 6. Fibromyalgia with chronic pain syndrome Patient takes fentanyl 75 mcg Q 72 hours.? Patch was changed yesterday. 7. Depression Continue outpatient dose of Lamictal.? She also uses diazepam at bedtime for sleep. 8. Hypothyroidism Continue levothyroxine 9. Oliguria Patient was diuresed on June 29.? Despite a couple of boluses yesterday she continues to be hypovolemic. Her oral intake remains marginal. Will give a 1 L bolus of IV fluids followed by maintenance fluids. Should she develop signs of worsening respiratory status or volume overload, would DC IV fluids and diurese. Clinically however she appears dry with dark concentrated urine, and report of marginal oral intake. Code status Full Prophylaxis Continue Lovenox Disposition Possibly home tomorrow. Time Spent With Patient Critical Care time: I spent a total of [] minutes of critical care time on this patient's care today; this time is exclusive of procedural time. Quality VTE Deep Vein Thrombosis/Pulmonary Embolism Present on Admission: No
--- NOTE | 2022-07-01 09:19 | PM.PNPO.1 ---
Subjective Subjective Date Patient Seen: 07/01/22 Time Patient Seen: 09:19 Interval history: Pt sitting up in chair comfortably. Per CM notes, it appears that pt will d/c home tomorrow w/ caregiver and home health help. Pt states she has appt w/ cardiology on 07/05. Exam Vital Signs (past 8 hours): - 07/01/22 04:35 07/01/22 04:35 07/01/22 08:00 Temperature 98.2 F 98.6 F Pulse Rate 57 L 56 L Respiratory Rate 17 21 Blood Pressure 110/40 L 107/47 L Pulse Oximetry 99 99 96 Oxygen Delivery Method Nasal Cannula Oxygen Flow Rate 2 2 2 Fraction of Inspired Oxygen 93 Oxygen Delivery Method Nasal Cannula Oxygen Flow Rate 2 Narrative Exam Narrative: 5/5 strength in quadriceps, hamstrings, DF, PF, EHL on left; 4/5 hip flexors. Sensation to light touch intact throughout LLE. Quarter-sized area of bloody drainage on Aquacel, otherwise CDI. Calves soft, compressible, nontender. Objective Labs Result Diagrams: 07/01/22 04:44 07/01/22 04:44 Labs: Laboratory Results - last 24 hr 07/01/22 07/01/22 04:44 04:44 WBC 10.4 RBC 3.44 L Hgb 9.9 L Hct 30.3 L MCV 88.1 MCH 28.6 MCHC 32.5 RDW 14.7 Plt Count 203 Neut % (Auto) 72.0 D Lymph % (Auto) 12.8 L [place] % (Auto) 9.4 Eos % (Auto) 5.6 H Baso % (Auto) 0.2 Neut # (Auto) 7500 H Lymph # (Auto) 1300 [place] # (Auto) 1000 H Eos # (Auto) 600 H Baso # (Auto) 0 Sodium 132 L Potassium 3.9 Chloride 99 Carbon Dioxide 27 BUN 19 H Creatinine 0.89 Estimated GFR > 60 BUN/Creatinine Ratio 21.3 Glucose 132 H Calcium 7.8 L PFSH Medical History Fibromyalgia Hypertension Hypothyroidism Restrictive lung disease Surgical History No pertinent past surgical history Social History household members: significant other Smoking Status: Former smoker alcohol intake: current substance use type: does not use Assessment & Plan Post-op Assessment and plan (1) Status post hip surgery: Assessment and Plan narrative: 1)? Weightbearing as tolerated LLE.? Posterior hip precautions (no flexion w/ adduction and internal rotation). 2)? Patient may shower over the dressing.? If water gets underneath the dressing, please remove the dressing completely and ensure that the incision is completely dry.? Otherwise, the dressing will be removed at the 1st postoperative visit in 2 weeks.? 3)? Aspirin, 81 mg b.i.d. for 4 weeks for DVT prophylaxis. (If cardiology elects to put pt on a different blood thinner, ASA can be d/c'd earlier). 4)? F/u w/ PA in ortho clinic in 2 weeks for wound check/staple removal.? F/u w/ Dr Oh in 6 weeks for xrays and review of progress. Postoperative Procedures: Procedures Operation Date: 06/29/22 18:00 Actual Procedure Side Surgeon p Hip Hemiarthroplasty Joe Left Braulio Oh MD Postoperative day: 2 Quality VTE Deep Vein Thrombosis/Pulmonary Embolism Present on Admission: No
[2022-07-01] MEDS: methocarbamoL 500 MG TABLET PO (09:33)
[2022-07-01] MEDS: LEVOTHYROXINE 75 MCG TABLET PO (09:33)
[2022-07-01] MEDS: lamoTRIgine 100 MG TABLET 50 MG PO (09:33)
[2022-07-01] MEDS: ENOXAPARIN 40 MG/0.4 ML SYRINGE SUBCUT (09:33)
[2022-07-01] MEDS: PANTOPRAZOLE DR 40 MG TABLET PO (09:33)
[2022-07-01] MEDS: SENNOSIDES 8.6 MG TABLET PO ×2 (09:34→20:17)
[2022-07-01] MEDS: METOPROLOL IR 50 MG TABLET PO (09:34)
[2022-07-01] MEDS: ASPIRIN EC 81 MG TABLET PO ×2 (09:34→20:17)
[2022-07-01] MEDS: FLUoxetine 20 MG CAPSULE 40 MG PO (09:34)
[2022-07-01] MEDS: CALCIUM CARBONATE 500 MG TAB 1000 MG PO (12:27)
[2022-07-01] MEDS: SODIUM CHLORIDE 0.9% FLUSH 10 ML IV (12:28)
--- NOTE | 2022-07-01 13:00 | PT-IP ANOTE ---
Pt was scheduled for caregiver training this AM at 1030 with her partner but her partner did not show. Decided to hold PT and wait for caregiver to arrive. Still waiting at 1300. Will follow up
--- NOTE | 2022-07-01 15:45 | PT.IPTN ---
Current Diagnoses Fracture of unspecified part of neck of left femur, initial encounter for closed fracture (06/28/22) Other specified postprocedural states (06/28/22) Surgery Performed Operation Date: 06/29/22 18:00 Actual Procedures p Hip Hemiarthroplasty Joe(Left) - Braulio Oh MD Physical Therapy Treatment Note M2 PT-IP Current Condition Start: 06/30/22 12:47 Freq: NEEDED Status: Active Protocol: Document 06/30/22 09:51 AB (Rec: 06/30/22 13:04 AB [email or web address]) Physical Therapy Current Condition Current Condition Evaluation Date 06/30/22 Treatment Diagnosis L femoral fx s/p L hemiarthroplasty; difficulty in walking Onset Date 06/28/22 M3 PT-IP Subjective Start: 06/30/22 12:47 Freq: NEEDED Status: Active Protocol: Document 07/01/22 15:48 AW (Rec: 07/01/22 16:05 AW [id number]) Subjective Physical Therapy Visit Type Type Treatment Note Visit Start Time 15:20 Visit Stop Time 15:45 Total Visit Minutes 25 Number of CLOTH BIN PACKER Visits 0 Physical Therapy Visit Comments Patient Comments agreeable to do PT Therapy Pain Assessment Pain When Pain Assessed At Rest Pain Present Pain Present Allowed to Sleep Location Left hip Scale Used not quantified Pain Management Techniques Modification of Treatment,Re- positioning,Timing of Activity with Medications M4 PT-IP Mobility and Gait Start: 06/30/22 12:47 Freq: NEEDED Status: Active Protocol: Document 07/01/22 15:48 AW (Rec: 07/01/22 16:05 AW [id number]) PT-Transfer Assessment Sit to and From Stand Sit to and from Stand Contact Guard Assistance, Minimal Assistance,1 Person Assistance,Use of Upper Extremities Equipment Transfer Assistive Device Gait Belt,Front Wheeled Walker Orthotic/Prosthetic Devices or Brace: No Transfers Transfer Destination Chair Transfer Technique pt ambulated with FWW Transfer Ability Level of Assist Minimal Assistance,1 Person Assistance,Use of Upper Extremities Comments Mobility Comments Pt was sitting up in the chair as PT arrived. She was able to recall all hip precautions today. SpO2 93% on 1L/min O2 NC. She stood min A and used FWW to ambulate in the room. In standing, briefly trialed room air but pt desatted to 85 % in static standing. Reapplied O2 and SpO2 recovered. Pt walked around the room with FWW 40 feet min A and cues to maintain precautions during turns. She sat on the chair for a rest break and then stood again CGA to walk another 40 feet. She stopped at the sink to brush her teeth. Standing balance was fair to good, requiring CGA. She returned to the chair - still on 1 L/min O2. SpO2 was 90%. Pt was not SOB and denied any lightheadedness. Gait Assessment Gait Gait Assistance Required: Contact Guard Assist,Minimum Assistance Distance (Feet) 40 Able to Maintain Weight Bearing Status Yes During Gait Assistive Devices Assistive Device Gait Belt,Front Wheeled Walker Gait Deviations General Gait Pattern Antalgic,Decreased Stride Length,Decreased Feet Clearance,Step-to Gait Factors Limiting Gait Function Factors Limiting Gait Function Decreased Activity Tolerance, Decreased Strength,Limited Range of Motion,Pain,Poor Balance,Poor Safety Awareness Comments Gait Comments See mobility comments for details. M5 PT-IP Objective Assessments Start: 06/30/22 12:47 Freq: NEEDED Status: Active Protocol: Document 06/30/22 09:51 AB (Rec: 06/30/22 13:04 AB [email or web address]) Orientation Orientation/Cognition Level of Alertness Confusional State Orientation Name,Place,Situation Safety Awareness Decreased Safety Awareness Memory Description Short Term Impaired Strength Lower Extremity Strength Assessment Left Impaired Hip 3-/5 Knee 3+/5 Muscle Tone Muscle Tone WNL Yes M6 PT-IP Treatment Start: 06/30/22 12:47 Freq: NEEDED Status: Active Protocol: Document 07/01/22 15:48 AW (Rec: 07/01/22 16:05 AW [id number]) Physical Therapy Treatment Education Education Provided Precautions,Weight Bearing Status,Safety M7 PT-IP Assessment and Plan Start: 06/30/22 12:47 Freq: NEEDED Status: Active Protocol: Document 07/01/22 15:48 AW (Rec: 07/01/22 16:05 AW [id number]) PT Summary Assessment and Plan Potential Rehabilitation Potential Good Summary Impairments Pain,ROM,Strength,Balance, Coordination,Sensation,Tone, Cognition,Bed Mobility, Transfers,Gait,Activity Tolerance Progress Towards Goals Slow Progress due to Pain,Slow Progress due to Medical Issues,Slow Progress due to Activity Tolerance Assessment Summary PT had intended to conduct caregiver training with pt and her SO but he did not show today. Pt's mobility is progressing slowly. She did walk 40 feet x 2 today with FWW and CGA/min A. She continues to require supplemental O2 at rest and during activity to maintain SpO2 >90%. Caregiver training postponed to tomorrow. If training goes well, pt may be able to return home with assist and home health. Will continue to assess. Goals Bed Mobility Goal Standby Assistance Transfer Goal Standby Assistance,Front Wheeled Walker Gait Goal Standby Assistance,Front Wheel Walker Gait Distance 150 Days to Meet Goals 10 Frequency of Treatment Frequency Of Treatment Twice a Day Treatment Plan Physical Therapy Treatment Plan Bed Mobility Training,Transfer Training,Gait Training, Therapeutic Exercise,Balance Retraining,Post Op Education, Discharge Planning,Hot or Cold Pack,Neuromuscular Re-ed, Coordination Retraining,Manual Therapy Precautions Posterior Hip Precautions No Hip Flexion > 90 degrees,No Hip Internal Rotation,No Hip Adduction Weight Bearing Status Weight Bearing Status Weight Bear as Tolerated Allowed Weight Bearing Amount (enter % LLE WBAT or #) (%) Recommendations To Nursing Amount of Assist Needed 1 Person Assist Discharge Recommendations PT Discharge Recommendations Home with 11/02 Assist Available,Home Health Transportation Needs at Discharge Private Vehicle,Wheelchair/ Cabulance
--- NOTE | 2022-07-01 18:15 | PC.NURSE ---
This am after administration of morning meds, including metoprolol, pt bradycardic (HR between 54-58) and hypotensive (102/30), pt asymptomatic, Dr. Sousa aware and d/c metoprolol. Close monitoring of urine output today but only 125mL by shift change this evening. Dr. Sousa aware, 1L bolus and maintenance fluids ordered.
[2022-07-01] MEDS: SODIUM CHLORIDE 0.9% 1,000 ML 1000 ML IV (18:28)
[2022-07-01] MEDS: SODIUM CHLORIDE 0.9% 1,000 ML 125 ML IV (19:42)
[2022-07-01] MEDS: lamoTRIgine 100 MG TABLET PO (23:43)
[2022-07-02] VITALS (8 sets, daily range): BP systolic 106–173; BP diastolic 32–60; PULSE 53–68; RESP 16–19; TEMP 36.1–37.9; O2SAT 90–98
[2022-07-02] MEDS: SODIUM CHLORIDE 0.9% 1,000 ML 125 ML IV (03:17)
[2022-07-02 06:11] LABS: Add Manual Diff / Slide Review NO; Basophils Absolute Auto 0 /uL (0-100); Basophils Percent Auto 0.4 % (0-2); Eosinophils Absolute Auto 500 /uL (0-450); Eosinophils Percent Auto 5.4 % (2-4); Hematocrit 29.4 % (36-46); Hemoglobin 9.5 g/dL (12.0-16.0); Lymphocytes Absolute Auto 1600 /uL (1100-4500); Lymphocytes Percent Auto 18.5 % (25-40); Mean Corpuscular HGB Conc 32.3 % (30-36); Mean Corpuscular Hemoglobin 28.7 PG (26-34); Mean Corpuscular Volume 88.8 fL (80-100); Monocytes Absolute Auto 800 /uL (0-900); Monocytes Percent Auto 9.1 % (3-14); Neutrophils Absolute Auto 5800 /uL (1500-7000); Neutrophils Percent Auto 66.6 % (50-75); Platelet Count 185 X10^3/uL (150-400); Red Blood Cell Count 3.31 X10^6/uL (4.0-5.2); Red Cell Distribution Width 14.1 % (11.6-14.8); White Blood Cell Count 8.7 X10^3/uL (4.5-11.0)
[2022-07-02 06:12] LABS: BUN Creatinine Ratio 21.7 (6-22); Blood Urea Nitrogen 20 mg/dL (7-17); Calcium 7.6 mg/dL (8.4-10.2); Carbon Dioxide 24 mmol/L (22-32); Chloride 103 mmol/L (98-107); Estimated Glomerular Filt Rate > 60 mL/min (>60); Glucose 111 mg/dL (80-110); HEMOLYSIS < 15 (0-50); Potassium 4.2 mmol/L (3.4-5.1); Sodium 132 mmol/L (137-145)
--- NOTE | 2022-07-02 06:58 | PC.NURSE ---
Pt urine output via celis was 175 this am.urine is dark yellow, [employer] attempted to do a bladder scan but unable to find the bladder. Pt isn't in any distress, doesn't appear to be having any s/s of fluid overload (pt got a 1L bolus last night and now on IVF at 125). Dr. Calvo aware of all this. No new orders taken.
[2022-07-02] MEDS: LEVOTHYROXINE 75 MCG TABLET PO (08:14)
[2022-07-02] MEDS: PANTOPRAZOLE DR 40 MG TABLET PO (08:14)
[2022-07-02] MEDS: ASPIRIN EC 81 MG TABLET PO ×2 (08:14→21:21)
[2022-07-02] MEDS: OXYCODONE IR 5 MG TABLET PO ×3 (08:15→21:20)
[2022-07-02] MEDS: SENNOSIDES 8.6 MG TABLET PO ×2 (08:15→21:21)
[2022-07-02] MEDS: lamoTRIgine 100 MG TABLET 50 MG PO (08:15)
[2022-07-02] MEDS: FLUoxetine 20 MG CAPSULE 40 MG PO (08:15)
[2022-07-02] MEDS: ENOXAPARIN 40 MG/0.4 ML SYRINGE SUBCUT (08:16)
--- NOTE | 2022-07-02 09:43 | PT.IPTN ---
Current Diagnoses Fracture of unspecified part of neck of left femur, initial encounter for closed fracture (06/28/22) Other specified postprocedural states (06/28/22) Surgery Performed Operation Date: 06/29/22 18:00 Actual Procedures p Hip Hemiarthroplasty Joe(Left) - Braulio Oh MD Physical Therapy Treatment Note M2 PT-IP Current Condition Start: 06/30/22 12:47 Freq: NEEDED Status: Active Protocol: Document 06/30/22 09:51 AB (Rec: 06/30/22 13:04 AB [email or web address]) Physical Therapy Current Condition Current Condition Evaluation Date 06/30/22 Treatment Diagnosis L femoral fx s/p L hemiarthroplasty; difficulty in walking Onset Date 06/28/22 M3 PT-IP Subjective Start: 06/30/22 12:47 Freq: NEEDED Status: Active Protocol: Document 07/02/22 09:43 AW (Rec: 07/02/22 10:38 AW [email or web address]) Subjective Physical Therapy Visit Type Type Treatment Note Visit Start Time 09:17 Visit Stop Time 09:43 Total Visit Minutes 26 Number of TIMBER GRADER Visits 0 Physical Therapy Visit Comments Patient Comments agreeable to do PT Therapy Pain Assessment Pain When Pain Assessed At Rest Pain Present Pain Present Pain Reported Location Left hip Intensity 6 Scale Used Numeric (0 - 10) Pain Management Techniques Timing of Activity with Medications M4 PT-IP Mobility and Gait Start: 06/30/22 12:47 Freq: NEEDED Status: Active Protocol: Document 07/02/22 09:43 AW (Rec: 07/02/22 10:38 AW [id number]) PT-Bed Mobility Assessment Sit to Supine Sit to Supine Minimal Assistance,1 Person Assistance PT-Transfer Assessment Sit to and From Stand Sit to and from Stand Contact Guard Assistance, Minimal Assistance,1 Person Assistance,Use of Upper Extremities Equipment Transfer Assistive Device Gait Belt,Front Wheeled Walker Orthotic/Prosthetic Devices or Brace: No Transfers Transfer Destination Bed Transfer Technique pt ambulated with FWW Transfer Ability Level of Assist Contact Guard Assistance, Minimal Assistance,1 Person Assistance,Use of Upper Extremities Comments Mobility Comments Sue was sitting up in the chair as PT arrived. She verbalized her movement strategies and was able to maintain precautions today, even in turns. She stood and walked in the room with FWW CGA. She returned to supine min A to elevate her legs. She verbalized that she likes to sleep on her right side but is aware she can not do that now due to precautions. Left pt with call light in reach. Gait Assessment Gait Gait Assistance Required: Contact Guard Assist Distance (Feet) 50 Able to Maintain Weight Bearing Status Yes During Gait Assistive Devices Assistive Device Gait Belt,Front Wheeled Walker Gait Deviations General Gait Pattern Antalgic,Decreased Stride Length,Decreased Feet Clearance,Step-to Gait Factors Limiting Gait Function Factors Limiting Gait Function Decreased Activity Tolerance, Decreased Strength,Limited Range of Motion,Pain,Poor Balance,Poor Safety Awareness Comments Gait Comments SpO2 was 97% at rest on 2L/min . Trialed room air at rest and pt de-satted to 89%. Reapplied NC at 1 L/min and SpO2 was 91%. Pt ambulated 25 feet with 1L/min and SpO2 was stable. She walked another 25 feet on room air and SpO2 dropped to 89%. On return to supine, 1L/min NC was reapplied and SpO2 was 94%. Stair Climbing Assessment Comments Stair Climbing Comments No stairs at home. PT-Balance Assessment Sitting Balance and Reactions Static Sitting Balance Ability Good Dynamic Sitting Balance Ability Good Standing Balance and Reactions Static Standing Balance Ability Fair Dynamic Standing Balance Ability Fair Device Used FWW M5 PT-IP Objective Assessments Start: 06/30/22 12:47 Freq: NEEDED Status: Active Protocol: Document 06/30/22 09:51 AB (Rec: 06/30/22 13:04 AB [email or web address]) Orientation Orientation/Cognition Level of Alertness Confusional State Orientation Name,Place,Situation Safety Awareness Decreased Safety Awareness Memory Description Short Term Impaired Strength Lower Extremity Strength Assessment Left Impaired Hip 3-/5 Knee 3+/5 Muscle Tone Muscle Tone WNL Yes M6 PT-IP Treatment Start: 06/30/22 12:47 Freq: NEEDED Status: Active Protocol: Document 07/02/22 09:43 AW (Rec: 07/02/22 10:38 AW [id number]) Physical Therapy Treatment Education Education Provided Precautions,Weight Bearing Status,Safety M7 PT-IP Assessment and Plan Start: 06/30/22 12:47 Freq: NEEDED Status: Active Protocol: Document 07/02/22 09:43 AW (Rec: 07/02/22 10:38 AW [id number]) PT Summary Assessment and Plan Summary Impairments Pain,ROM,Strength,Balance, Coordination,Sensation,Tone, Cognition,Bed Mobility, Transfers,Gait,Activity Tolerance Progress Towards Goals Slow Progress due to Pain,Slow Progress due to Medical Issues,Slow Progress due to Activity Tolerance Assessment Summary Sue is progressing slowly with mobility and requiring less O2 to maintain >90% sats during activity. RT has been consulted for possible home OT need. Anticipate pt will be safe to discharge home with assist once medically stable but would benefit from caregiver training prior to discharge. Goals Bed Mobility Goal Standby Assistance Transfer Goal Standby Assistance,Front Wheeled Walker Gait Goal Standby Assistance,Front Wheel Walker Gait Distance 150 Days to Meet Goals 10 Frequency of Treatment Frequency Of Treatment Twice a Day Treatment Plan Physical Therapy Treatment Plan Bed Mobility Training,Transfer Training,Gait Training, Therapeutic Exercise,Balance Retraining,Post Op Education, Discharge Planning,Hot or Cold Pack,Neuromuscular Re-ed, Coordination Retraining,Manual Therapy Precautions Posterior Hip Precautions No Hip Flexion > 90 degrees,No Hip Internal Rotation,No Hip Adduction Weight Bearing Status Weight Bearing Status Weight Bear as Tolerated Allowed Weight Bearing Amount (enter % LLE WBAT or #) (%) Recommendations To Nursing Amount of Assist Needed 1 Person Assist Discharge Recommendations PT Discharge Recommendations Home with 11/02 Assist Available,Home Health Transportation Needs at Discharge Private Vehicle
[2022-07-02] MEDS: HYDROMORPHONE 0.5 MG INJ IV (10:13)
--- NOTE | 2022-07-02 12:42 | CM.DPNOTE ---
Discharge Planning Note: Spoke with partner Yovani who will be here this afternoon for caregiver training and let Radha know. Apparently she will ambulate with oximetry checks to see if she can safely go home without O2. Therapy recommends home with assist. Plan: Home with assist, [facility] referral has been [facility], will need to fax F2F when pending dc. Jud Allen RN/DCP
--- NOTE | 2022-07-02 12:59 | PT.IPTN ---
Current Diagnoses Fracture of unspecified part of neck of left femur, initial encounter for closed fracture (06/28/22) Other specified postprocedural states (06/28/22) Surgery Performed Operation Date: 06/29/22 18:00 Actual Procedures p Hip Hemiarthroplasty Joe(Left) - Braulio Oh MD Physical Therapy Treatment Note M2 PT-IP Current Condition Start: 06/30/22 12:47 Freq: NEEDED Status: Active Protocol: Document 06/30/22 09:51 AB (Rec: 06/30/22 13:04 AB [id number]) Physical Therapy Current Condition Current Condition Evaluation Date 06/30/22 Treatment Diagnosis L femoral fx s/p L hemiarthroplasty; difficulty in walking Onset Date 06/28/22 M3 PT-IP Subjective Start: 06/30/22 12:47 Freq: NEEDED Status: Active Protocol: Document 07/02/22 12:59 AW (Rec: 07/02/22 14:15 AW [id number]) Subjective Physical Therapy Visit Type Type Treatment Note Visit Start Time 12:42 Visit Stop Time 12:59 Total Visit Minutes 17 Number of PRODUCTION TEAM LEADER Visits 0 Physical Therapy Visit Comments Patient Comments Pt's SO is present to participate in caregiver training. RT is also present to assess for home O2 needs. Therapy Pain Assessment Pain When Pain Assessed At Rest Pain Present Pain Present Pain Reported Location Left hip Intensity 6 Scale Used Numeric (0 - 10) Pain Management Techniques Distraction,Timing of Activity with Medications M4 PT-IP Mobility and Gait Start: 06/30/22 12:47 Freq: NEEDED Status: Active Protocol: Document 07/02/22 12:59 AW (Rec: 07/02/22 14:15 AW [id number]) PT-Bed Mobility Assessment Supine to Sit Supine to Sit Minimal Assistance Scooting Scooting to Edge of Bed Standby Assistance PT-Transfer Assessment Sit to and From Stand Sit to and from Stand Contact Guard Assistance,Use of Upper Extremities Equipment Transfer Assistive Device Gait Belt,Front Wheeled Walker Transfers Transfer Destination Bed,Chair Transfer Technique pt ambulated with FWW Transfer Ability Level of Assist Contact Guard Assistance,1 Person Assistance,Use of Upper Extremities Comments Mobility Comments Sue was lying in bed as PT arrived. Reviewed all posterior hip precautions. Sue was able to teach her precautions to her SO who understood. SpO2 was 97% on 2 L/min. On room air, SpO2 dropped to 92% at rest. Pt sat up EOB min A and stood CGA. She used FWW to ambulate in the room CGA. Pt's caregiver was able to provide appropriate level of assist for ambulation. Pt transferred to the chair CGA and then back to sitting EOB. During activity on room air, SpO2 dropped to 85%. PT left as RT continued assessment. Gait Assessment Gait Gait Assistance Required: Contact Guard Assist Distance (Feet) 50 Able to Maintain Weight Bearing Status Yes During Gait Assistive Devices Assistive Device Gait Belt,Front Wheeled Walker Orthotic/Prosthetic Devices or Brace: No Gait Deviations General Gait Pattern Antalgic,Decreased Stride Length,Decreased Feet Clearance,Step-to Gait Factors Limiting Gait Function Factors Limiting Gait Function Decreased Activity Tolerance, Decreased Strength,Limited Range of Motion,Pain,Poor Balance,Poor Safety Awareness Comments Gait Comments See mobility comments for details. Stair Climbing Assessment Comments Stair Climbing Comments No stairs at home. PT-Balance Assessment Sitting Balance and Reactions Static Sitting Balance Ability Good Dynamic Sitting Balance Ability Good Standing Balance and Reactions Static Standing Balance Ability Fair Dynamic Standing Balance Ability Fair Device Used FWW M5 PT-IP Objective Assessments Start: 06/30/22 12:47 Freq: NEEDED Status: Active Protocol: Document 06/30/22 09:51 AB (Rec: 06/30/22 13:04 AB [id number]) Orientation Orientation/Cognition Level of Alertness Confusional State Orientation Name,Place,Situation Safety Awareness Decreased Safety Awareness Memory Description Short Term Impaired Strength Lower Extremity Strength Assessment Left Impaired Hip 3-/5 Knee 3+/5 Muscle Tone Muscle Tone WNL Yes M6 PT-IP Treatment Start: 06/30/22 12:47 Freq: NEEDED Status: Active Protocol: Document 07/02/22 12:59 AW (Rec: 07/02/22 14:15 AW [id number]) Physical Therapy Treatment Education Education Provided Precautions,Weight Bearing Status,Safety Other Treatments Other Treatment Performed Educated pt's SO on hip precautions and level of assist required for safe mobility. M7 PT-IP Assessment and Plan Start: 06/30/22 12:47 Freq: NEEDED Status: Active Protocol: Document 07/02/22 12:59 AW (Rec: 07/02/22 14:15 AW [id number]) PT Summary Assessment and Plan Summary Progress Towards Goals Slow Progress due to Pain,Slow Progress due to Medical Issues,Slow Progress due to Activity Tolerance Assessment Summary Sue's SO was present to participate in caregiver training. RT was in to assess for home O2 needs. Pt does continue to desat with activity. Mobility-baumann, she is requiring less assist and is able to verbalize her movement strategies as she goes, showing good safety awareness and attention to precautions. She will be able to discharge home with assist and home health PT once medically stable. Goals Bed Mobility Goal Standby Assistance Transfer Goal Standby Assistance,Front Wheeled Walker Gait Goal Standby Assistance,Front Wheel Walker Gait Distance 150 Days to Meet Goals 10 Frequency of Treatment Frequency Of Treatment Twice a Day Treatment Plan Physical Therapy Treatment Plan Bed Mobility Training,Transfer Training,Gait Training, Therapeutic Exercise,Balance Retraining,Post Op Education, Discharge Planning,Hot or Cold Pack,Neuromuscular Re-ed, Coordination Retraining,Manual Therapy Precautions Posterior Hip Precautions No Hip Flexion > 90 degrees,No Hip Internal Rotation,No Hip Adduction Weight Bearing Status Weight Bearing Status Weight Bear as Tolerated Allowed Weight Bearing Amount (enter % LLE WBAT or #) (%) Recommendations To Nursing Amount of Assist Needed 1 Person Assist Discharge Recommendations PT Discharge Recommendations Home with 11/02 Assist Available,Home Health Transportation Needs at Discharge Private Vehicle
[2022-07-02] MEDS: ACETAMINOPHEN 325 MG TABLET 650 MG PO (15:28)
--- NOTE | 2022-07-02 19:11 | PM.PN.1 ---
Subjective Subjective Date Patient Seen: 07/02/22 Interval history: Patient feeling better today. Able to wean off O2 on home O2 gómez. Had a temp of 100.3F today. Exam Vital Signs (past 8 hours): - 07/02/22 11:20 07/02/22 12:00 07/02/22 16:00 Temperature 100.3 F H Pulse Rate 53 L Respiratory Rate 17 Blood Pressure 106/32 L Pulse Oximetry 98 93 95 Oxygen Delivery Method Nasal Cannula Room Air Oxygen Flow Rate 1 1 07/02/22 16:00 Temperature 98.2 F Pulse Rate 62 Respiratory Rate 16 Blood Pressure 156/48 H Pulse Oximetry 90 L Oxygen Delivery Method Oxygen Flow Rate 0 Fraction of Inspired Oxygen 93 Oxygen Delivery Method Room Air Oxygen Flow Rate 0 Narrative Exam Narrative: GEN: Alert and oriented x 3, NAD HEENT:NC, Face symmetric CHEST: Respiratory excursions symmetric, coarse but CTAB CV: RRR, no M/R/G ABD: Soft, NT/ND, BT present in all 4 quadrants, no organomegaly or masses EXTR: warm, well perfused, no C/C/E SKIN: warm and dry, no rash NEURO: Alert and oriented x 3, nonfocal Objective Labs Result Diagrams: 07/02/22 05:00 07/02/22 05:00 Labs: Laboratory Results - last 24 hr 07/02/22 07/02/22 05:00 05:00 WBC 8.7 RBC 3.31 L Hgb 9.5 L Hct 29.4 L MCV 88.8 MCH 28.7 MCHC 32.3 RDW 14.1 Plt Count 185 Neut % (Auto) 66.6 Lymph % (Auto) 18.5 L [place] % (Auto) 9.1 Eos % (Auto) 5.4 H Baso % (Auto) 0.4 Neut # (Auto) 5800 Lymph # (Auto) 1600 [place] # (Auto) 800 Eos # (Auto) 500 H Baso # (Auto) 0 Sodium 132 L Potassium 4.2 Chloride 103 Carbon Dioxide 24 BUN 20 H Creatinine 0.92 Estimated GFR > 60 BUN/Creatinine Ratio 21.7 Glucose 111 H Calcium 7.6 L PFSH Medical History Fibromyalgia Hypertension Hypothyroidism Restrictive lung disease Surgical History No pertinent past surgical history Social History household members: significant other Smoking Status: Former smoker alcohol intake: current substance use type: does not use Assessment & Plan Assessment & Plan narrative: 1. Postoperative day 2 from left hip hemiarthroplasty for left femoral neck fracture Appreciate management per Orthopedic surgery.? Work on mobilization and pain control. Patient's goal is to return home with home health. Her partner is a train TRAINING DEVELOPMENT MANAGER and she feels confident they will be successful at home. 2. Acute hypoxic respiratory failure Postoperatively, patient did require 5 L of oxygen via nasal cannula.? At baseline she does not require oxygen.? Patient has known idiopathic pulmonary fibrosis.? She was initially treated with IV furosemide.? O2 need is now down to 2 liters/minute.? Will continue to monitor.? Etiology is not entirely clear, but could be related to underlying lung disease and anesthesia for surgery.? No clear evidence of aspiration. Will have RT perform a desat study. 3. Ascending aortic aneurysm Measuring 6.4 cm.? She will need close follow-up.? She is on metoprolol for blood pressure control. 4. Elevated troponin Patient reportedly had an NSTEMI at the end of May.? Troponin was 0.050, down trending to 0.041.? It likely to be cardiac demand ischemia. 5. Idiopathic pulmonary fibrosis She is not on any outpatient medications or inhalers. 6. Fibromyalgia with chronic pain syndrome Patient takes fentanyl 75 mcg Q 72 hours.? Patch was changed yesterday. 7. Depression Continue outpatient dose of Lamictal.? She also uses diazepam at bedtime for sleep. 8. Hypothyroidism Continue levothyroxine 9. Oliguria Patient was diuresed on June 29.? Despite a couple of boluses yesterday she continues to be hypovolemic. Her oral intake remains marginal. Will give a 1 L bolus of IV fluids followed by maintenance fluids. Should she develop signs of worsening respiratory status or volume overload, would DC IV fluids and diurese. Clinically however she appears dry with dark concentrated urine, and report of marginal oral intake. 10. Elevated temp -100.3F on 07/04 -no new cough, dysuria -likely atelectasis on CXR -monitor for signs of infection Code status Full Prophylaxis Continue Lovenox Disposition Home with on 07/03. Time Spent With Patient Critical Care time: I spent a total of [] minutes of critical care time on this patient's care today; this time is exclusive of procedural time. Quality VTE Deep Vein Thrombosis/Pulmonary Embolism Present on Admission: No
[2022-07-02] MEDS: lamoTRIgine 100 MG TABLET PO (21:21)
[2022-07-02] MEDS: SODIUM CHLORIDE 0.9% FLUSH 10 ML IV (21:21)
[2022-07-03 03:10] VITALS: BP 185/63; PULSE 67; RESP 19; TEMP 37.1; O2SAT 93
[2022-07-03 07:30] VITALS: BP 167/49; PULSE 88; RESP 20; TEMP 36.4; O2SAT 93
[2022-07-03 08:00] VITALS: O2SAT 95
--- NOTE | 2022-07-03 08:00 | PT.IPTN ---
Addendum entered and electronically signed by Alecia Salinas, TEREZA 07/03/22 12:04: Vitals with mobility: BP 167/49, HR 88 SaO2 93% on RA. Original Note: Current Diagnoses Fracture of unspecified part of neck of left femur, initial encounter for closed fracture (06/28/22) Other specified postprocedural states (06/28/22) Surgery Performed Operation Date: 06/29/22 18:00 Actual Procedures p Hip Hemiarthroplasty Joe(Left) - Braulio Oh MD Physical Therapy Treatment Note M2 PT-IP Current Condition Start: 06/30/22 12:47 Freq: NEEDED Status: Active Protocol: Document 07/03/22 07:40 SP (Rec: 07/03/22 12:03 SP [id number]) Physical Therapy Current Condition Current Condition Evaluation Date 06/30/22 Treatment Diagnosis L femoral fx s/p L hemiarthroplasty; difficulty in walking Onset Date 06/28/22 M3 PT-IP Subjective Start: 06/30/22 12:47 Freq: NEEDED Status: Active Protocol: Document 07/03/22 07:40 SP (Rec: 07/03/22 12:03 SP [id number]) Subjective Physical Therapy Visit Type Type Treatment Note Visit Start Time 07:40 Visit Stop Time 08:00 Total Visit Minutes 20 Number of ENGINEERING SUPERVISOR Visits 1 Physical Therapy Visit Comments Patient Comments Pt agreeable to taking over tx , OUTSIDE CUTTER HAND in room, pt walking to bathroom. Patient Goals Return home with SO to assist her if needed. Prefers HHPT for progressing strengthening. Therapy Pain Assessment Pain When Pain Assessed During Mobility Pain Present Pain Present Pain Reported Location Left hip Intensity 6 Scale Used Numeric (0 - 10) Description With Movement Pain Behaviors Facial Grimacing Pain Management Techniques Distraction,Modification of Treatment,Re-positioning M4 PT-IP Mobility and Gait Start: 06/30/22 12:47 Freq: NEEDED Status: Active Protocol: Document 07/03/22 07:40 SP (Rec: 07/03/22 12:03 SP [id number]) PT-Transfer Assessment Sit to and From Stand Sit to and from Stand Standby Assistance,Use of Upper Extremities Equipment Transfer Assistive Device Gait Belt,Front Wheeled Walker Orthotic/Prosthetic Devices or Brace: No Transfers Transfer Destination Chair,Toilet Transfer Technique pt ambulated with FWW Transfer Ability Level of Assist Standby Assistance,Use of Upper Extremities Comments Mobility Comments Pt was walking to bathroom w/ FWW when arrived, OUTSIDE CUTTER HAND providing SBA. ENGINEERING SUPERVISOR took over care and provided gait belt for safety during mobility, pt gait w/ FWW 10 ft bed>toilet SBA good stable pivot, cued redirection LUE safety use grab bar slow descent pt tends keep hands on FWW and started to lose balance retro, improved stability self RUE on grab barwith noted LUE out front to maintain hip precautions, good recall /. self pericare seated, cued push from grab bar stand SBA. Gait to sink w/ FWW 10 ft wash hands no UE support needed w/ good FWW facing sink. pt returned to room chair 5 ft, good pivot and back up fully w / FWW, verbal/tactile cue reach back slow descent. DIscussed and good recall assimulation LLE post op ex: AP, heel slide and can use strap self help if needed in supine. STS tactile/vs for push from chair arm, gait around room, good stable receiprocal stepping and no IR during pivot, returned to chair. Assisted pt scoot back in chair with RLE bent onleg rest due to small stature and BUE on chair arms, Min A scoot . Pt stated may sleep in her reclined initially, easier to get out of. Pt had call light and all needs in reach before left. Pt is ok to return home with SO for assist if needed when medically cleared. Recommending HHPT due to slow moving and pt requested not planning go out unless appt. Gait Assessment Gait Gait Assistance Required: Contact Guard Assist Distance (Feet) 55 Able to Maintain Weight Bearing Status Yes During Gait Assistive Devices Assistive Device Gait Belt,Front Wheeled Walker Orthotic/Prosthetic Devices or Brace: No Gait Deviations General Gait Pattern Antalgic,Decreased Stride Length,Decreased Feet Clearance Factors Limiting Gait Function Factors Limiting Gait Function Decreased Activity Tolerance, Decreased Strength,Limited Range of Motion,Pain,Poor Balance,Poor Safety Awareness Comments Gait Comments see mobility comments. Stair Climbing Assessment Comments Stair Climbing Comments No stairs at home. PT-Balance Assessment Sitting Balance and Reactions Static Sitting Balance Ability Normal Dynamic Sitting Balance Ability Good Standing Balance and Reactions Static Standing Balance Ability Good Dynamic Standing Balance Ability Fair Device Used FWW M5 PT-IP Objective Assessments Start: 06/30/22 12:47 Freq: NEEDED Status: Active Protocol: Document 06/30/22 09:51 AB (Rec: 06/30/22 13:04 AB [id number]) Orientation Orientation/Cognition Level of Alertness Confusional State Orientation Name,Place,Situation Safety Awareness Decreased Safety Awareness Memory Description Short Term Impaired Strength Lower Extremity Strength Assessment Left Impaired Hip 3-/5 Knee 3+/5 Muscle Tone Muscle Tone WNL Yes M6 PT-IP Treatment Start: 06/30/22 12:47 Freq: NEEDED Status: Active Protocol: Document 07/03/22 07:40 SP (Rec: 07/03/22 12:03 SP [id number]) Physical Therapy Treatment Education Education Provided Precautions,Weight Bearing Status,Safety Other Treatments Other Treatment Performed Pt safety education proper use of reaching back to slow sit and push from chair arms/grab bar in bathroom to ascend, verbalized understanding and improved stability post ed. M7 PT-IP Assessment and Plan Start: 06/30/22 12:47 Freq: NEEDED Status: Active Protocol: Document 07/03/22 07:40 SP (Rec: 07/03/22 12:03 SP [id number]) PT Summary Assessment and Plan Potential Rehabilitation Potential Good Status of Condition at Evaluation Evolving Summary Impairments Pain,ROM,Strength,Balance, Cognition,Bed Mobility, Transfers,Gait,Activity Tolerance Progress Towards Goals Progressing Toward Goals,Slow Progress due to Pain,Slow Progress due to Activity Tolerance Assessment Summary Pt improved saturation low 90s during mobility, SBA throughout transfers, gait w/ FWW. Good recall precautions and maintaining throughout mobility. Safety cues for proper hand placement during transfers, improved. Encouraged pt to verbalize her movement strategies as she goes, showing good safety awareness. She will be able to discharge home with assist and home health PT once medically stable. Goals Bed Mobility Goal Standby Assistance Transfer Goal Standby Assistance,Front Wheeled Walker Gait Goal Standby Assistance,Front Wheel Walker Gait Distance 150 Days to Meet Goals 10 Frequency of Treatment Frequency Of Treatment Twice a Day Treatment Plan Physical Therapy Treatment Plan Bed Mobility Training,Transfer Training,Gait Training, Therapeutic Exercise,Balance Retraining,Post Op Education, Discharge Planning,Hot or Cold Pack,Neuromuscular Re-ed, Coordination Retraining,Manual Therapy Other Recommendations and Next Treatment safety techniquest during Focus transfers hand placement, STS, gait longer distance with LRAD. Post op ex, ROM. Precautions Posterior Hip Precautions No Hip Flexion > 90 degrees,No Hip Internal Rotation,No Hip Adduction Weight Bearing Status Weight Bearing Status Weight Bear as Tolerated Allowed Weight Bearing Amount (enter % LLE WBAT or #) (%) Recommendations To Nursing Amount of Assist Needed Standby Assistance Discharge Recommendations PT Discharge Recommendations Home with Assistance,Home with / Assist Available,Home Health Transportation Needs at Discharge Private Vehicle
--- NOTE | 2022-07-03 08:10 | P.DS_ITS ---
History of Present Illness History of Present Illness Date Patient Seen: 07/03/22 Time Patient Seen: 12:03 Date of Onset of Symptoms: 06/28/22 Chief complaint: hip pain Narrative: Sue is a 72-year-old female who sustained a ground level fall yesterday. She felt immediate pain and was unable to bear weight on her left side. She was bro ught to [facility] Emergency Department where imaging was obtained demonstrating a left femoral neck fracture. Of note, she had a NSTEMI at the end of May. Currently her troponins are 0.05 and still trending down, she also had a ultrasound which was negative. She has past medical history of fibromyalgia and has a fentanyl patch and has oxycodone at home. Her pain management is being done by her primary care doctor in [place]. She does live with her partner who is able to take care of her and she does not have any stairs in her home. She denies any recent nausea, vomiting, fevers, chills or any other constitutional symptoms. Discharge Providers Provider Date of admission: 06/28/22 17:05 Discharge Date: 07/03/22 Primary care physician: Raffi Quiroga MD Consults: 06/28/22 17:03 Consult to Orthopedic Surgery Stat Comment: Consulting Provider: Braulio Oh Reason for consultation: left hip fracture Has provider been notified: Yes 06/28/22 17:07 Consult to Discharge Planning Routine Comment: 06/29/22 23:44 Consult to Discharge Planning Routine Comment: Consult to Physical Therapy Evaluate & Treat Comment: Physician Instructions: Evaluate and Treat Discharge provider: Yovani Vega DO Summary Hospital Course Discharge Diagnosis: 1. Left hip hemiarthroplasty for left femoral neck fracture Appreciate management per Orthopedic surgery.? Work on mobilization and pain control.? Patient's returned home with home health.? Her partner is a train QUALITY MANAGEMENT COORDINATOR and she feels confident they will be successful at home. 2. Acute hypoxic respiratory failure, resolved Postoperatively, patient did require 5 L of oxygen via nasal cannula.? At baseline she does not require oxygen.? Patient has known idiopathic pulmonary fibrosis.? She was initially treated with IV furosemide.? Able to wean off O2. 3. Ascending aortic aneurysm Measuring 6.4 cm.? She will need close follow-up.? She is on metoprolol for blood pressure control. 4. Elevated troponin Patient reportedly had an NSTEMI at the end of May.? Troponin was 0.050, down trending to 0.041.? It likely to be cardiac demand ischemia. 5. Idiopathic pulmonary fibrosis She is not on any outpatient medications or inhalers. 6. Fibromyalgia with chronic pain syndrome Patient takes fentanyl 75 mcg Q 72 hours.? Patch was changed yesterday. 7. Depression Continue outpatient dose of Lamictal.? She also uses diazepam at bedtime for sleep. 8. Hypothyroidism Continue levothyroxine 9. Oliguria Patient was diuresed on June 29.? Despite a couple of boluses yesterday she continues to be hypovolemic.? Her oral intake remains marginal.? Will give a 1 L bolus of IV fluids followed by maintenance fluids.? Should she develop signs of worsening respiratory status or volume overload, would DC IV fluids and d iurese.? Clinically however she appears dry with dark concentrated urine, and report of marginal oral intake. 10. Elevated temp -100.3F on 07/04 -no new cough, dysuria -likely atelectasis on CXR -no repeat fevers Hospital Course: For fall at home resulting in left hip fracture which was repaired by ortho. Patient worked with physical therapy following and was able to clear for home health physical therapy. She was placed on aspirin twice daily for 4 weeks and will follow-up in ortho clinic. She had a temp of 100.3? F prior to discharge but no repeat fevers were noted and chest x-ray, UA and cultures were negative so this was not treated. Time Spent with Patient Time spent: Greater than 30 minutes Exam Vital Signs (past 8 hours): - 07/03/22 03:10 Temperature 98.7 F Pulse Rate 67 Respiratory Rate 19 Blood Pressure 185/63 H Pulse Oximetry 93 Oxygen Flow Rate 0 Fraction of Inspired Oxygen 93 Oxygen Delivery Method Room Air Oxygen Flow Rate 0 Narrative Exam Narrative: GEN: Alert and oriented x 3, NAD HEENT:NC, Face symmetric CHEST: Respiratory excursions symmetric, coarse but CTAB CV: RRR, no M/R/G ABD: Soft, NT/ND, BT present in all 4 quadrants, no organomegaly or masses EXTR: warm, well perfused, no C/C/E SKIN: warm and dry, no rash NEURO: Alert and oriented x 3, nonfocal Objective Labs Result Diagrams: 07/02/22 05:00 07/02/22 05:00 [facility] Medical History Fibromyalgia Hypertension Hypothyroidism Restrictive lung disease Surgical History No pertinent past surgical history Social History household members: significant other Smoking Status: Former smoker alcohol intake: current substance use type: does not use Discharge Plan Discharge Plan Patient Disposition: Home Health Service Provider Discharge Comment: You fell and broke your left hip which was repaired by ortho. You will now take Aspirin 81 mg twice daily for 4 weeks for clot prophylaxis. You will need to follow-up with ortho in clinic. Discharge orders & Medications Prescriptions: New aspirin 81 mg Tablet,Delayed Release (Dr/Ec) 81 mg PO BID 28 Days Qty: 56 0RF oxycodone 5 mg Tablet 5 mg PO Q4HR PRN (Reason: Pain, Moderate (4-6)) Qty: 30 0RF Continued fluoxetine [Prozac] 40 MG capsule 40 mg PO DAILY Qty: 0 fentanyl 75 mcg/hr patch 72 hour 75 mcg transdermal 3XD Rx Instructions: last patch applied 06/27 on left wrist metoprolol tartrate 50 mg Tablet 50 mg PO BID vitamin E 400 unit Tablet 1 unit PO DAILY vitamin B complex Tablet 1 tab PO DAILY diazepam [Valium] 10 mg Tablet 10 mg PO BEDTIME cholecalciferol (vitamin D3) 50 mcg (2,000 unit) Tablet 50 mcg PO DAILY Rx Instructions: Takes 2 tablets daily oxycodone-acetaminophen [Percocet] 5-325 mg Tablet 1 tab PO Q6H PRN (Reason: Pain (Scale Score 4-6)) Rx Instructions: Takes 1 to 2 tablets every 6 hours lamotrigine [Lamictal] 100 mg Tablet 50 mg PO DAILY Rx Instructions: Takes 1/2 tab of the 100mg in the AM lamotrigine [Lamictal] 100 mg Tablet 100 mg PO BEDTIME levothyroxine 75 mcg Tablet 75 mcg PO DAILY Follow up/Referrals: Braulio Oh MD [Physician] - 2 Weeks (Follow up w/ PA @ [facility] for wound check and staple removal-'s nurse Tanya will call you with appointment date & time Follow up w/ Dr Oh for xrays in 6 weeks.) Raffi Quiroga MD [Primary Care Provider] - Diet/Activity/Treatments Activity: Weightbearing as tolerated to Left Lower Extremityfe. Posterior hip precautions (no flexion w/ adduction and internal rotation). Cold/Heat Therapy: Ice to hip as needed for pain. Skin/Wound/Dressing Care Report to your healthcare provider any signs of infection, such as:: chills, fever, night sweats, unusual drainage and unusual redness Dressing: May shower; leave Aquacel dressing in place until follow up appointment. No bathing or otherwise soaking incision. Call the office if the dressing becomes saturated inside. Visit Report/Discharge Packet Instructions: DI for Hip Replacement, DI for Constipation, How to Prevent Falls, DI for Taking Pain Medication Discharge Data Primary Care Provider: Raffi Quiroga Quality VTE Deep Vein Thrombosis/Pulmonary Embolism Present on Admission: No
[2022-07-03] MEDS: OXYCODONE IR 5 MG TABLET PO ×2 (09:21→14:02)
[2022-07-03] MEDS: methocarbamoL 500 MG TABLET PO (09:21)
[2022-07-03] MEDS: FLUoxetine 20 MG CAPSULE 40 MG PO (09:21)
[2022-07-03] MEDS: MELOXICAM 7.5 MG TABLET PO (09:21)
[2022-07-03] MEDS: ACETAMINOPHEN 325 MG TABLET 650 MG PO (09:22)
[2022-07-03] MEDS: PANTOPRAZOLE DR 40 MG TABLET PO (09:22)
[2022-07-03] MEDS: ASPIRIN EC 81 MG TABLET PO (09:22)
[2022-07-03] MEDS: LEVOTHYROXINE 75 MCG TABLET PO (09:23)
[2022-07-03] MEDS: lamoTRIgine 100 MG TABLET 50 MG PO (09:23)
[2022-07-03] MEDS: polyethylene glycoL 3350 17 GM POWD.PACK PO (09:23)
[2022-07-03] MEDS: SENNOSIDES 8.6 MG TABLET PO (09:23)
--- NOTE | 2022-07-03 14:15 | CM.DPNOTE ---
Discharge Planning Note: Patient to discharge home unto care of spouse who will be here to pick her up. Notified [facility] of discharge, faxed Face to Face. Jud Allen RN/CONIP
--- NOTE | 2022-07-03 14:58 | PC.NURSE ---
Discharge: Pt feels ready to d/c to home. Seen by PT and received their instructions. Is safe to go home. Seen by PA and given instructions for d/c. Has been tolerating diet w/out problems. No bm but says she will work on it at home, did give miralax this morning. Has been voiding w/out diff. Po pain meds are effective. Reviewed d/c packet and questions answered. Rx were esent. Denies any concerns. Pt d/c to home via auto w/significant other.
== END 2022-07-03 14:00 | disposition home or self-care (01) | DRG 521 ==
LOC: ED 16:03 → AC 17:05
PROVIDERS: Family Medicine; Internal Medicine; Orthopaedic Surgery; Admitting Provider Student in an Organized Health Care Education/Training Program; Emergency Provider Emergency Medicine; PCP Family Medicine; Referring Provider Emergency Medicine; Visit Provider Student in an Organized Health Care Education/Training Program
PROC: 0SRS0JZ Replacement of Left Hip Joint, Femoral Surface with Synthetic Substitute, Open Approach (ICD-10-PCS; CPT 27125; principal; 2022-06-29 18:00)
DX: S72.002A Fracture of unspecified part of neck of left femur, initial encounter for closed fracture (principal); J96.01 Acute respiratory failure with hypoxia; I24.8 Other forms of acute ischemic heart disease; J98.11 Atelectasis; M79.7 Fibromyalgia; I71.40 Abdominal aortic aneurysm, without rupture, unspecified; G89.4 Chronic pain syndrome; F32.A Depression, unspecified; E03.9 Hypothyroidism, unspecified; J84.112 Idiopathic pulmonary fibrosis; R34 Anuria and oliguria; I10 Essential (primary) hypertension; W18.30XA Fall on same level, unspecified, initial encounter; Y93.K1 Activity, walking an animal; Z20.822 Contact with and (suspected) exposure to COVID-19; Z87.891 Personal history of nicotine dependence
CPT/HCPCS: 36415; 71045; 71275; 72170; 73502; 80048; 80053; 80305; 80320; 81003; 82550; 83735; 84484; 85025; 85610; 85730; 87635; 93005; 94618; 94760; 94762; 96374; 97116; 97162; 97530; 99284; 99285; C1776; C9803; J0171; J0690; J1100; J1170; J1650; J1940; J2274; J2405; J2704; J3010; Q9967

== ENCOUNTER 2022-07-19 17:13 | Emergency (ER) | payer MEDICARE, BC, SELFPAY ==
[2022-06-28 20:18] VITALS: BMI 28.3
--- NOTE | 2022-07-19 17:30 | PC.NURSE ---
1720 pt here to have s/p hip surgery gricelda out, instructed pt she needs to follow up with surgeon and that in er we will not be removing surgical gricelda due to risks of infx and wound healing, pt to call surgeon and follow up.
== END 2022-07-19 17:34 | disposition left against medical advice (07) ==
PROVIDERS: Emergency Provider Emergency Medicine; PCP Family Medicine

== ENCOUNTER 2022-08-14 21:37 | Observation (INO) | payer MEDICARE, BC, SELFPAY ==
[2022-06-28 20:18] VITALS: BMI 28.3
[2022-08-14] VITALS (8 sets, daily range): BP systolic 114–129; BP diastolic 49–56; PULSE 41–44; RESP 12–44; TEMP 36.6; O2SAT 97–100
--- NOTE | 2022-08-14 22:04 | DI.RAD.S_ITS ---
PROCEDURE: XR CHEST 1V INDICATIONS: chest pain TECHNIQUE: One view of the chest was acquired. COMPARISON: [facility], CT, CT ANGIO CHEST, 06/28/2022, 22:32. [facility], CR, XR CHEST 1V, 06/28/2022, 16:10. FINDINGS: Surgical changes and devices: None. Lungs and pleura: Lungs are clear. No pleural effusions or pneumothorax. Mediastinum: Mediastinal contours are unchanged, with enlargement of the ascending aortic contour consistent with an ascending aortic aneurysm seen on the prior CT. Heart size is enlarged. Bones and chest wall: No suspicious bony lesions. Overlying soft tissues appear unremarkable. IMPRESSION: 1. No acute cardiopulmonary disease. 2. Aneurysmal dilatation of the ascending thoracic aorta redemonstrated. Dictated by: Henry Mabry M.D. on 08/14/2022 at 23:08 Approved by: Henry Mabry M.D. on 08/14/2022 at 23:09
--- NOTE | 2022-08-14 22:06 | PC.NURSE ---
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 Suppose to have an angio in near future. 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 Reports significant angina with any walking, relieved by 1 nitro most times. Has not required any today.
[2022-08-14 22:12] LABS: Add Manual Diff / Slide Review NO; Basophils Absolute Auto 100 /uL (0-100); Basophils Percent Auto 0.9 % (0-2); Eosinophils Absolute Auto 100 /uL (0-450); Hematocrit 42.9 % (36-46); Hemoglobin 14.2 g/dL (12.0-16.0); Lymphocytes Absolute Auto 1700 /uL (1100-4500); Lymphocytes Percent Auto 18.2 % (25-40); Mean Corpuscular Volume 84.9 fL (80-100); Monocytes Absolute Auto 700 /uL (0-900); Monocytes Percent Auto 7.7 % (3-14); Neutrophils Absolute Auto 6800 /uL (1500-7000); Neutrophils Percent Auto 72.2 % (50-75); Platelet Count 328 X10^3/uL (150-400); Red Blood Cell Count 5.06 X10^6/uL (4.0-5.2); White Blood Cell Count 9.4 X10^3/uL (4.5-11.0)
[2022-08-14 22:17] LABS: INR 1.2 (0.9-1.3); Prothrombin Time 13.5 SECONDS (10.1-12.7)
[2022-08-14 22:19] LABS: PTT Partial Thromboplastin Tim 50 SECONDS (26-36)
[2022-08-14 22:31] LABS: Alanine Aminotransferase 17 IU/L (<35); Albumin 4.4 g/dL (3.5-5.0); Albumin Globulin Ratio 1.3 (1.0-2.8); Alkaline Phosphatase 109 U/L (38-126); Aspartate Aminotransferase 26 IU/L (14-36); Bilirubin Total 0.8 mg/dL (0.2-1.3); Blood Urea Nitrogen 27 mg/dL (7-17); Calcium 9.4 mg/dL (8.4-10.2); Carbon Dioxide 27 mmol/L (22-32); Chloride 97 mmol/L (98-107); Creatine Kinase 44 U/L (30-135); Estimated Glomerular Filt Rate > 60 mL/min (>60); Globulin 3.3 g/dL (1.7-4.1); Glucose 103 mg/dL (80-110); HEMOLYSIS < 15 (0-50); Lipase 152 U/L (23-300); Magnesium 1.9 mg/dL (1.6-2.3); Potassium 4.4 mmol/L (3.4-5.1); Sodium 135 mmol/L (137-145); Total Protein 7.7 g/dL (6.3-8.2)
[2022-08-14 22:31] LABS: COVID19 -Nasal RAPID Negative (Negative)
[2022-08-14 22:42] LABS: Troponin I 0.018 ng/mL (0.01-0.034)
--- NOTE | 2022-08-14 23:54 | ED.GENADULT ---
HPI - General Adult General Chief complaint: Weakness Stated complaint: heart is fluctuating, uncontrolled temperature Time Seen by Provider: 08/14/22 23:53 Source: patient Mode of arrival: Wheelchair History of Present Illness HPI narrative: 72-year-old woman with a history of epilepsy, fibromyalgia, idiopathic pulmonary fibrosis, diabetes with myocardial infarction in May of 2022 and then subsequent hip surgery after falling sustaining a hip fracture in June. Followed by Cardiology at [facility]. She reportedly has ?too bad valves and an aortic aneurysm that they are watching?. She was discharged home after [place] with metoprolol and complains of low energy with exertional angina/shortness of breath that resolves with nitroglycerin. Over the last 24 hours she is had chills and significantly increased fatigue. She does note that she is supposed to be scheduled for a cardiac catheterization in the near future. In the meantime she complains that she can feel her heartbeat and it is very slow, that she is having significant exertional angina that responds to nitroglycerin that is getting more frequent and more intense with the episodes. She has dramatically limited her overall activity levels because of this. She talked to her cardiology office earlier today and they recommended she come in for further evaluation. She reports no overt fevers, cough, orthopnea, lower extremity edema, headaches but overall general malaise and fatigue. Related Data Home Medications Medication Instructions Recorded Confirmed fluoxetine 40 mg capsule (Prozac) 40 mg PO DAILY ##0 03/06/13 06/30/22 fentanyl 75 mcg/hr transdermal 75 mcg transdermal 3XD pain 06/28/22 06/28/22 patch cholecalciferol (vitamin D3) 50 50 mcg PO DAILY 06/30/22 06/30/22 mcg (2,000 unit) tablet diazepam 10 mg tablet (Valium) 10 mg PO BEDTIME 06/30/22 06/30/22 lamotrigine 100 mg tablet 50 mg PO DAILY 06/30/22 06/30/22 (Lamictal) lamotrigine 100 mg tablet 100 mg PO BEDTIME 06/30/22 06/30/22 (Lamictal) levothyroxine 75 mcg tablet 75 mcg PO DAILY 06/30/22 06/30/22 metoprolol tartrate 50 mg tablet 50 mg PO BID 06/30/22 06/30/22 oxycodone-acetaminophen 5 mg-325 1 tab PO Q6H PRN Pain (Scale Score 06/30/22 06/30/22 mg tablet (Percocet) 4-6) vitamin B complex 1 tab PO DAILY 06/30/22 06/30/22 vitamin E 400 unit tablet 1 unit PO DAILY 06/30/22 06/30/22 Previous Rx's Medication Instructions Recorded oxycodone 5 mg tablet 5 mg PO Q4HR PRN Pain, Moderate 07/03/22 (4-6) #30 tabs Allergies Allergy/AdvReac Type Severity Reaction Status Date / Time sulfamethoxazole Allergy Verified 08/14/22 21:46 [From ] trimethoprim [From ] Allergy Verified 08/14/22 21:46 adhesive tape AdvReac Verified 08/14/22 21:46 Review of Systems Review of Systems Narrative: Remainder of complete review of systems is otherwise unremarkable except for that included in the HPI. Patient History Medical History (Updated 08/15/22 @ 00:19 by Carmen Tate MD) Fibromyalgia Hypertension Hypothyroidism Myocardial infarction Restrictive lung disease Surgical History (Updated 08/15/22 @ 00:12 by Carmen Tate MD) Status post hip surgery Social History household members: significant other Smoking Status: Former smoker alcohol intake: current substance use type: does not use Smoking Status: Former smoker alcohol intake frequency: 0-2 drinks per day Substance Use Type: methamphetamine Exam Initial Vital Signs Initial Vital Signs: Vital Signs Temperature 98 F 08/14/22 21:41 Pulse Rate 44 L 08/14/22 21:41 Respiratory Rate 18 08/14/22 21:41 Blood Pressure 123/51 L 08/14/22 21:41 Pulse Oximetry 100 08/14/22 21:41 Oxygen Delivery Method 08/14/22 21:41 General: Frail chronically ill-appearing but in no acute distress. Able to give a complete and coherent history. Well-nourished well-developed HEENT: Moist mucous membranes, normal sclera with reactive pupils, Neck: No JVD, supple Respiratory: Lungs are clear to auscultation, no wheezing no rales no rhonchi. Full and symmetrical air movement Cardiac: Bradycardic with 3/6 systolic murmur and 2/6 diastolic murmur Abdomen: Soft, nontender, good bowel tones, no flank pain Skin: Warm and dry, no rashes Neurologic: Grossly neurologically intact with no obvious asymmetries or abnormalities Extremities: No trauma, well perfused, no lower extremity edema Psych: Cooperative, appropriate insight and affect Course Orders Ordered: ED Orders 08/14/22 21:59 Complete Blood Count AUTO DIFF Stat Comprehensive Metabolic Panel Stat Lipase Stat Magnesium Stat Partial Thromboplastin Time Stat Prothrombin Time INR Stat Troponin & CK Cardiac Panel Stat 08/14/22 22:04 XR chest 1V Stat EKG-12 Lead Stat 08/14/22 22:05 COVID19 -Nasal RAPID/Pre-Proc Stat 08/15/22 01:34 Trop I [Troponin I] Stat Discontinued Medications Aspirin (Aspirin 81 Mg Chew Tab) 324 mg PO NOW ONE Stop: 08/14/22 22:05 Vital Signs Vital signs: Vital Signs - 8 hr 08/14/22 21:41 08/14/22 22:00 08/14/22 22:01 Temperature 98 F Pulse Rate 44 L 43 L Respiratory Rate 18 44 H Blood Pressure 123/51 L 129/56 L Pulse Oximetry 100 Oxygen Delivery Method Room Air 08/14/22 22:01 08/14/22 22:30 08/14/22 22:31 Temperature Pulse Rate 42 L 43 L 43 L Respiratory Rate 43 H 12 14 Blood Pressure Pulse Oximetry 99 98 97 Oxygen Delivery Method 08/14/22 22:31 08/14/22 23:00 08/14/22 23:00 Temperature Pulse Rate 41 L Respiratory Rate 22 Blood Pressure 114/49 L 115/52 L Pulse Oximetry 98 Oxygen Delivery Method 08/14/22 23:30 08/14/22 23:31 08/14/22 23:31 Temperature Pulse Rate 41 L 41 L Respiratory Rate 42 H 42 H Blood Pressure 122/56 L Pulse Oximetry 97 97 Oxygen Delivery Method 08/15/22 00:00 08/15/22 00:00 08/15/22 00:30 Temperature Pulse Rate 41 L Respiratory Rate 43 H Blood Pressure 127/58 L 131/56 L Pulse Oximetry 97 Oxygen Delivery Method 08/15/22 00:30 08/15/22 01:00 08/15/22 01:01 Temperature Pulse Rate 43 L 45 L Respiratory Rate 20 19 Blood Pressure 142/59 H Pulse Oximetry 96 96 Oxygen Delivery Method 08/15/22 01:01 Temperature Pulse Rate 45 L Respiratory Rate 23 Blood Pressure Pulse Oximetry 96 Oxygen Delivery Method Medical Decision Making Lab Data 08/14/22 21:59 08/14/22 21:59 Labs: Lab Results 08/14/22 08/14/22 08/14/22 Range/Units 21:59 21:59 21:59 WBC 9.4 (4.5-11.0) X10^3/uL RBC 5.06 (4.0-5.2) X10^6/uL Hgb 14.2 (12.0-16.0) g/dL Hct 42.9 (36-46) % MCV 84.9 (80-100) fL MCH 28.0 (26-34) PG MCHC 33.0 (30-36) % RDW 15.0 H (11.6-14.8) % Plt Count 328 (150-400) X10^3/uL Neut % (Auto) 72.2 (50-75) % Lymph % (Auto) 18.2 L (25-40) % Jessamine % (Auto) 7.7 (3-14) % Eos % (Auto) 1.0 L (2-4) % Baso % (Auto) 0.9 (0-2) % Neut # (Auto) 6800 (9415-5328) /uL Lymph # (Auto) 1700 (3289-6942) /uL Jessamine # (Auto) 700 (0-900) /uL Eos # (Auto) 100 (0-450) /uL Baso # (Auto) 100 (0-100) /uL PT 13.5 H (10.1-12.7) SECONDS INR 1.2 (0.9-1.3) APTT 50 H (26-36) SECONDS Sodium 135 L (137-145) mmol/L Potassium 4.4 (3.4-5.1) mmol/L Chloride 97 L (98-107) mmol/L Carbon Dioxide 27 (22-32) mmol/L BUN 27 H (7-17) mg/dL Creatinine 0.87 (0.52-1.04) mg/dL Estimated GFR > 60 (>60) mL/min BUN/Creatinine Ratio 31.0 H (6-22) Glucose 103 (80-110) mg/dL Calcium 9.4 (8.4-10.2) mg/dL Magnesium 1.9 (1.6-2.3) mg/dL Total Bilirubin 0.8 (0.2-1.3) mg/dL AST 26 (14-36) IU/L ALT 17 (<35) IU/L Alkaline Phosphatase 109 (38-126) U/L Total Creatine Kinase 44 (30-135) U/L CK-MB (CK-2) TNP CK-MB (CK-2) Rel Index TNP Troponin I 0.018 (0.01-0.034) ng/mL Total Protein 7.7 (6.3-8.2) g/dL Albumin 4.4 (3.5-5.0) g/dL Globulin 3.3 (1.7-4.1) g/dL Albumin/Globulin Ratio 1.3 (1.0-2.8) Lipase 152 (23-300) U/L SARS-CoV-2 (PCR) (Negative) 08/14/22 Range/Units 22:05 WBC (4.5-11.0) X10^3/uL RBC (4.0-5.2) X10^6/uL Hgb (12.0-16.0) g/dL Hct (36-46) % MCV (80-100) fL MCH (26-34) PG MCHC (30-36) % RDW (11.6-14.8) % Plt Count (150-400) X10^3/uL Neut % (Auto) (50-75) % Lymph % (Auto) (25-40) % Jessamine % (Auto) (3-14) % Eos % (Auto) (2-4) % Baso % (Auto) (0-2) % Neut # (Auto) (9722-7406) /uL Lymph # (Auto) (6303-5321) /uL Jessamine # (Auto) (0-900) /uL Eos # (Auto) (0-450) /uL Baso # (Auto) (0-100) /uL PT (10.1-12.7) SECONDS INR (0.9-1.3) APTT (26-36) SECONDS Sodium (137-145) mmol/L Potassium (3.4-5.1) mmol/L Chloride (98-107) mmol/L Carbon Dioxide (22-32) mmol/L BUN (7-17) mg/dL Creatinine (0.52-1.04) mg/dL Estimated GFR (>60) mL/min BUN/Creatinine Ratio (6-22) Glucose (80-110) mg/dL Calcium (8.4-10.2) mg/dL Magnesium (1.6-2.3) mg/dL Total Bilirubin (0.2-1.3) mg/dL AST (14-36) IU/L ALT (<35) IU/L Alkaline Phosphatase (38-126) U/L Total Creatine Kinase (30-135) U/L CK-MB (CK-2) CK-MB (CK-2) Rel Index Troponin I (0.01-0.034) ng/mL Total Protein (6.3-8.2) g/dL Albumin (3.5-5.0) g/dL Globulin (1.7-4.1) g/dL Albumin/Globulin Ratio (1.0-2.8) Lipase (23-300) U/L SARS-CoV-2 (PCR) Negative (Negative) Imaging Data Chest x-ray: Radiologist's Impression: FINDINGS:? ? Surgical changes and devices:? None.? ? Lungs and pleura:? Lungs are clear.? No pleural effusions or pneumothorax.? ? Mediastinum:? Mediastinal contours are unchanged, with enlargement of the ascending aortic contour consistent with an ascending aortic aneurysm seen on the prior CT.? Heart size is enlarged. ? Bones and chest wall:? No suspicious bony lesions.? Overlying soft tissues appear unremarkable.? ? IMPRESSION:? ? 1. No acute cardiopulmonary disease. ? 2. Aneurysmal dilatation of the ascending thoracic aorta redemonstrated.? ? Dictated by: Henry Mabry M.D. on 08/14/2022 at 23:08 ? ? ECG Data Interpretation: Sinus bradycardia at a rate of 44 LVH with repolarization abnormalities QTC elongated at 494 milliseconds No significant ischemic changes MDM Narrative Medical decision making narrative: CC: Increased fatigue and slow heart rate Complicating co-morbidities: Recent NSTEMI, hip fracture, addition of metoprolol after her NSTEMI, worsening exertional angina Corroborating data: Data collected from: patient, Social determinants of health that may influence the patients condition: Medical records reviewed: Hospital admission records reviewed as well as records from [facility]. I have requested hospital records from [facility] effort admit in May of this year with her cardiac event. Differential considered: Congestive heart failure secondary to bradycardia, medication side effects, worsening cardiac angina, severe anemia, thyroid abnormalities after multiple acute issues in the last 3 months, no evidence of dissection, pneumothorax. Possibility of viral infection, bacterial infection Exam documented above, pertinent findings include: Bradycardia with noted heart murmurs, no significant evidence of volume overload clinically Lab Test results independently reviewed as above. Pertinent findings: CBC is unremarkable without signs of leukocytosis or significant anemia Chemistries are unremarkable with normal renal function Initial troponin is 0.018 Unclear when last TSH has been checked will add today. Will also add BNP. Independently reviewed EKG as above Imaging studies independently reviewed: Chest x-ray does not show overt heart failure, aortic and reason is again appreciated Consultations: Dr Blum, cardiology at [facility] and partner to Dr Platt. Recommendation is observation admission overnight to trend troponins, repeat echocardiogram, hold metoprolol and re-evaluate. He recommended phone call consultation with Cardiology prior to discharge and agrees with cutting metoprolol dose in and adding 2.5 mg of amlodipine for treating her anginal symptoms while not exacerbating her bradycardia. Treatments: She is given aspirin, metoprolol is held Re-evaluations: Patient is re-evaluated after discussion with Cardiology. Continues to be bradycardic, not having any pain or dyspnea at rest. Understands need for hospitalization and observation. We will continue to closely coordinate outpatient discharge(presuming heart rate comes up and she is feeling better with an unchanged echocardiogram). Have requested records from [facility]. Will discuss admission with the hospitalist service Regarding record request: She was boarded in the emergency department in [facility] for 3 days without actual transfer to [facility] with event around Thanksgiving. Will ask [facility] for their records. Disposition: see below Discharge Plan Departure Patient Disposition: Admitted as Observation Clinical Impression: Bradycardia, Fatigue, Exertional angina, Chronic idiopathic pulmonary fibrosis
[2022-08-15] VITALS (11 sets, daily range): BP systolic 116–142; BP diastolic 53–68; PULSE 41–47; RESP 16–43; TEMP 36.2–36.6; O2SAT 96–99; BMI 17.6
--- NOTE | 2022-08-15 02:13 | PM.HP.1 ---
History of Present Illness History of Present Illness Date Patient Seen: 08/15/22 Time Patient Seen: 02:13 Chief complaint: heart is fluctuating, uncontrolled temperature Narrative: Sue Martin is a 72-year-old female with a PMH of idiopathic pulmonary fibrosis, HTN, hypothyroid, fibromyalgia, chronic pain medication, meth use or hx , regular ETOH use, ascending aortic aneurysm, depression, history of epilepsy, NSTEMI 06/12-pending cardiac follow-up/catheterization, and left hip fracture ORIF with ARF 06/29/2022??Followed by Cardiology at [facility] for ?too bad valves and aortic aneurysm?.? [facility] with metoprolol 50 mg b.i.d. and complains of low energy with exertional angina/shortness of breath that resolves with nitroglycerin occurring more frequently, slow heart beat and over last 24 hours chills and significantly increased fatigue which has been dramatically decreasing her activity level. Her cardiology office today advised she come in for further evaluation.? She reports no overt fevers, cough, orthopnea, lower extremity edema, headaches but overall general malaise and fatigue. On admit patient denies chest pain & SOB at rest, headache, changes in vision, difficulty swallowing, speech impairment, weakness, numbness, tingling, difficulty with ambulation, recent falls, head injury, LOC, fever, body aches, chills, cough, recent exposure to illness, abdominal pain, nausea, vomiting, urinary incontinence/retention, dysuria, frequency, urgency, hematuria, bowel changes, constipation, incontinence, melena, rashes, recent illness with the exception of those noted above.. Admit vitals temp 98?, 116/68, continued bradycardia HR 41, tachypneic RR 42, O2 saturation 97% on room air. CBC unremarkable, chloride 97, BUN 27, creatinine clearance 42, PT 13.5 although INR stable 1.2 PTT 50, troponin 0.018, COVID is negative. Patient's EKG sinus Abhijit rate of 44 LVH with repolarization abnormalities prolonged QTC [address] or T-wave changes. Last echo 01/10 with an EF 60 65%. Chest x-ray demonstrated aneurysmal dilation ascending thoracic aorta redemonstrated, enlarged heart. [place] cardiology was consulted in the ED where patient is being followed on-call atomic physics professor recommended decreasing the metoprolol dose by half and adding 2.5 amlodipine, and repeating echo, with urgent follow-up in their clinic. Patient admitted for observation due to bradycardia, exertional angina/dyspnea. Patient History Medical History Fibromyalgia Hypertension Hypothyroidism Myocardial infarction Restrictive lung disease Surgical History Status post hip surgery Family & Social History Family History Mother TIA (transient ischemic attack) Father No problems noted. Social History: household members significant other Safety & Behavioral: Feels Safe in Current Yes Environment Been Physically Hurt or No Threatened By a Person Tobacco & Substance use: Tobacco type cigarettes Smoking Status Former smoker alcohol intake current alcohol intake frequency 0-2 drinks per day Substance Use Type methamphetamine Meds Home Medications and Allergies Home Medications Medication Instructions Recorded Confirmed Type fluoxetine 40 mg capsule (Prozac) 40 mg PO DAILY ##0 03/06/13 06/30/22 History fentanyl 75 mcg/hr transdermal 75 mcg transdermal 3XD pain 06/28/22 06/28/22 History patch cholecalciferol (vitamin D3) 50 50 mcg PO DAILY 06/30/22 06/30/22 History mcg (2,000 unit) tablet diazepam 10 mg tablet (Valium) 10 mg PO BEDTIME 06/30/22 06/30/22 History lamotrigine 100 mg tablet 50 mg PO DAILY 06/30/22 06/30/22 History (Lamictal) metoprolol tartrate 50 mg tablet 50 mg PO BID 06/30/22 06/30/22 History oxycodone-acetaminophen 5 mg-325 1 tab PO Q6H PRN Pain (Scale Score 06/30/22 06/30/22 History mg tablet (Percocet) 4-6) vitamin B complex 1 tab PO DAILY 06/30/22 06/30/22 History aspirin 81 mg tablet,delayed 81 mg PO DAILY 08/15/22 08/15/22 History release furosemide 20 mg tablet 20 mg PO DAILY 08/15/22 08/15/22 History levothyroxine 100 mcg capsule 100 mcg PO DAILY 08/15/22 08/15/22 History potassium chloride 20 mEq 20 meq PO DAILY 08/15/22 08/15/22 History tablet,extended release Allergies Allergy/AdvReac Type Severity Reaction Status Date / Time sulfamethoxazole Allergy Verified 08/14/22 21:46 [From ] trimethoprim [From ] Allergy Verified 08/14/22 21:46 adhesive tape AdvReac Verified 08/14/22 21:46 Review of Systems Review of Systems Narrative: All 12 point systems reviewed with the patient and are negative except otherwise documented. Exam Vital Signs (past 8 hours): - 08/14/22 21:41 08/14/22 22:00 08/14/22 22:01 Temperature 98 F Pulse Rate 44 L 43 L Respiratory Rate 18 44 H Blood Pressure 123/51 L 129/56 L Pulse Oximetry 100 Oxygen Delivery Method Room Air 08/14/22 22:01 08/14/22 22:30 08/14/22 22:31 Temperature Pulse Rate 42 L 43 L 43 L Respiratory Rate 43 H 12 14 Blood Pressure Pulse Oximetry 99 98 97 Oxygen Delivery Method 08/14/22 22:31 08/14/22 23:00 08/14/22 23:00 Temperature Pulse Rate 41 L Respiratory Rate 22 Blood Pressure 114/49 L 115/52 L Pulse Oximetry 98 Oxygen Delivery Method 08/14/22 23:30 08/14/22 23:31 08/14/22 23:31 Temperature Pulse Rate 41 L 41 L Respiratory Rate 42 H 42 H Blood Pressure 122/56 L Pulse Oximetry 97 97 Oxygen Delivery Method 08/15/22 00:00 08/15/22 00:00 08/15/22 00:30 Temperature Pulse Rate 41 L Respiratory Rate 43 H Blood Pressure 127/58 L 131/56 L Pulse Oximetry 97 Oxygen Delivery Method 08/15/22 00:30 08/15/22 01:00 08/15/22 01:01 Temperature Pulse Rate 43 L 45 L Respiratory Rate 20 19 Blood Pressure 142/59 H Pulse Oximetry 96 96 Oxygen Delivery Method 08/15/22 01:01 08/15/22 01:30 08/15/22 01:31 Temperature Pulse Rate 45 L 43 L Respiratory Rate 23 24 Blood Pressure 133/57 L Pulse Oximetry 96 98 Oxygen Delivery Method 08/15/22 01:31 08/15/22 02:00 08/15/22 02:01 Temperature Pulse Rate 42 L 41 L Respiratory Rate 21 42 H Blood Pressure 116/68 Pulse Oximetry 97 97 Oxygen Delivery Method 08/15/22 02:01 Temperature Pulse Rate 41 L Respiratory Rate 42 H Blood Pressure Pulse Oximetry 97 Oxygen Delivery Method Oxygen Delivery Method Room Air Narrative Exam Narrative: General: Patient is a thin frail appearing elderly female in no distress at this time. HEENT: Normocephalic, atraumatic, extraocular muscles intact, oral pharynx is clear and mucous membranes are moist. Neck is supple and symmetric, trachea is midline, no adenopathy, no thyroid enlargement, nontender, no masses palpated. Negative for JVD Chest: no nasal flaring, retractions, or tachypneic labored breathing. Lungs: Auscultation of all lung sharpe are clear without adventitious sounds, wheezes, rhonchi, or rales. Cardio: Bradycardic rate and rhythm Abdomen: Soft nontender, negative for organomegaly, or masses. Bowel sounds are present in all 4 quadrants without guarding or rebound, no CVA tenderness. Musculoskeletal: Muscle strength and tone are equal within normal limits, no deformity, crepitus, effusions, cyanosis, clubbing or edema present. Full range of motion intact radial and pedal pulses are normal. Skin: Warm dry and intact without rashes, ulcerations or petechiae. Neuro: Alert and orientated x3, moves all extremities, sensation to touch intact, no gross deficits noted of cranial nerves. Psych: Patient has a well-kept appearance, appropriate affect, mental status attitude thought context and judgment are appropriate for age. Objective Labs 08/14/22 21:59 08/14/22 21:59 Labs: Laboratory Results - last 24 hr 08/14/22 08/14/22 08/14/22 21:59 21:59 21:59 WBC 9.4 RBC 5.06 Hgb 14.2 Hct 42.9 MCV 84.9 MCH 28.0 MCHC 33.0 RDW 15.0 H Plt Count 328 Neut % (Auto) 72.2 Lymph % (Auto) 18.2 L [place] % (Auto) 7.7 Eos % (Auto) 1.0 L Baso % (Auto) 0.9 Neut # (Auto) 6800 Lymph # (Auto) 1700 [place] # (Auto) 700 Eos # (Auto) 100 Baso # (Auto) 100 PT 13.5 H INR 1.2 APTT 50 H Sodium 135 L Potassium 4.4 Chloride 97 L Carbon Dioxide 27 BUN 27 H Creatinine 0.87 Estimated GFR > 60 BUN/Creatinine Ratio 31.0 H Glucose 103 Calcium 9.4 Magnesium 1.9 Total Bilirubin 0.8 AST 26 ALT 17 Alkaline Phosphatase 109 Total Creatine Kinase 44 CK-MB (CK-2) TNP CK-MB (CK-2) Rel Index TNP Troponin I 0.018 Total Protein 7.7 Albumin 4.4 Globulin 3.3 Albumin/Globulin Ratio 1.3 Lipase 152 SARS-CoV-2 (PCR) 08/14/22 22:05 WBC RBC Hgb Hct MCV MCH MCHC RDW Plt Count Neut % (Auto) Lymph % (Auto) [place] % (Auto) Eos % (Auto) Baso % (Auto) Neut # (Auto) Lymph # (Auto) [place] # (Auto) Eos # (Auto) Baso # (Auto) PT INR APTT Sodium Potassium Chloride Carbon Dioxide BUN Creatinine Estimated GFR BUN/Creatinine Ratio Glucose Calcium Magnesium Total Bilirubin AST ALT Alkaline Phosphatase Total Creatine Kinase CK-MB (CK-2) CK-MB (CK-2) Rel Index Troponin I Total Protein Albumin Globulin Albumin/Globulin Ratio Lipase SARS-CoV-2 (PCR) Negative Assessment & Plan Assessment & Plan narrative: Sue Martin is a 72-year-old female with a PMH of idiopathic pulmonary fibrosis, HTN, hypothyroid, fibromyalgia, ascending aortic aneurysm, depression, history of epilepsy, NSTEMI 06/12-pending cardiac follow-up/catheterization, and left hip fracture ORIF with ARF 06/29/2022??Followed by Cardiology at [facility] for ?too bad valves and aortic aneurysm?.? [facility] metoprolol 50 mg b.i.d. initiated and complains of low energy with exertional angina/shortness of breath,and bradycardia. Patient has sustained bradycardia in ED and on floor in the 40s. Patient admitted for observation due to bradycardia, exertional angina/dyspnea. Once bradycardia can be resolved the patient can be seen emergently by Dr. Platt cardiology at [place] for cardiac catheterization 1. Bradycardia, with exertional angina/dyspnea, acute, present on admission -EKG sinus Abhijit rate of 44 LVH with repolarization abnormalities prolonged QTC [address] or T-wave changes. -echo 01/10 with an EF 60 65%. -[place] cardiology was consulted in the ED where patient is being followed on-call atomic physics professor recommended decreasing the metoprolol dose by half and adding 2.5 amlodipine, and repeating echo, with urgent follow-up in their clinic. -patient verbalized that she had echo completed by [facility]att [facility] approximately 1 week ago which was found Dr. Vega to have been completed on 08/02/2021-will not repeat echo. -initially reduce metoprolol to 25 b.i.d., but asked patient's heart rate continued in the 40s throughout the night. Metoprolol -initiated amlodipine 2.5 q.day -Recommend reaching out to Dr Platt for fast tracking Cardiac cath as an outpatient. -EMERGENT follow-up. 2. History of recent NSTEMI, requiring cardiac catheterization, acute on chronic, present on admission-patient is stable and in no distress -initial troponin 0.018 will trend x3 -06/28/2022 admit: Troponin was 0.050, down trending to 0.041.? It likely to be cardiac demand ischemia. -PT 13.5 although INR stable 1.2 PTT 50 -Ordered BNP, TSH/Free T4 3. Ascending aortic aneurysm, x2, chronic, present on admission -managed by Dr. Platt [facility] Measuring 6.4 cm.? She will need close follow-up.? She is on metoprolol for blood pressure control. 4. Idiopathic pulmonary fibrosis, chronic, present on admission She is not on any outpatient medications or inhalers. 5. Fibromyalgia with chronic pain syndrome -Patient takes fentanyl 75 mcg Q 72 hours.? Percocet q.4-6 hours- -discussed with patient my concerns regarding polypharmacy in relation to her bradycardia and that she may need to be tapered back on her pain medications-a discussion for follow-up with Cardiology and PCP 6. Depression, chronic, present on admission Continue outpatient dose of Lamictal.? She also uses diazepam at bedtime for sleep. 8. Hypothyroidism, acquired, chronic, present on admission -Ordered TSH/T$ - TSH 5.89 -change home dose of 100 levothyroxine to 125mcg QD repeat tsh outpatient follow-up with PCP CODE: Full Proxy: Yovani Wheat, life partner COVID PCR:Negative DVT/VTE prophylaxis: Lovenox and SCD Disposition: Patient admitted for observation expected length of stay less than 2 midnights once bradycardia has been resolved, patient to emergent outpatient follow-up Dr. Platt cardiology for cardiac catheterization. I have utilized all available immediate resources to obtain, update, or review the patient's current medications. I confirmed that the patient's advanced care plan is present, Code status is documented and/or surrogate decision maker is listed in the patient's medical record. I have personally reviewed patient's chart notes from PCP, specialists, diagnostic imaging, and laboratory results. Time Spent With Patient Critical Care time: I spent a total of [] minutes of critical care time on this patient's care today; this time is exclusive of procedural time.
[2022-08-15 03:08] LABS: Troponin I 0.013 ng/mL (0.01-0.034)
[2022-08-15 03:08] LABS: NT-proBNP (BNP-Adult 18+) 6090 pg/mL (<125); TSH w/ Reflex to FT4 5.89 uIU/mL (0.47-4.68)
[2022-08-15 03:45] LABS: Free T4, Direct Thyroxine 1.74 ng/dL (0.78-2.19)
[2022-08-15] MEDS: diazePAM 5 MG TABLET PO (05:03)
--- NOTE | 2022-08-15 06:02 | PC.NURSE ---
Received patient from ER in no distress. Heart rate low has been taking lopressor despite low heart rate at home. Medicated with 1/2 dose of night time valium per MD order. No complaints of chest pain or shortness of breath.
[2022-08-15 06:37] LABS: BUN Creatinine Ratio 30.3 (6-22); Blood Urea Nitrogen 27 mg/dL (7-17); Calcium 9.2 mg/dL (8.4-10.2); Carbon Dioxide 28 mmol/L (22-32); Chloride 96 mmol/L (98-107); Estimated Glomerular Filt Rate > 60 mL/min (>60); Glucose 97 mg/dL (80-110); HEMOLYSIS < 15 (0-50); Potassium 4.1 mmol/L (3.4-5.1); Sodium 134 mmol/L (137-145)
[2022-08-15 08:51] LABS: Troponin I 0.014 ng/mL (0.01-0.034)
[2022-08-15] MEDS: LEVOTHYROXINE 75 MCG TABLET PO (09:19)
[2022-08-15] MEDS: AMLODIPINE 5 MG TABLET 2.5 MG PO (09:20)
[2022-08-15] MEDS: ENOXAPARIN 30 MG/0.3 ML SYRINGE SUBCUT (09:22)
[2022-08-15] MEDS: lamoTRIgine 100 MG TABLET 50 MG PO (09:23)
--- NOTE | 2022-08-15 11:11 | P.PN_ITS ---
Exam Vital Signs (past 8 hours): - 08/15/22 04:00 08/15/22 08:00 08/15/22 08:00 Temperature 97.8 F 97.6 F Pulse Rate 45 L 43 L Respiratory Rate 16 42 H Blood Pressure 121/57 L 123/53 L Pulse Oximetry 97 98 Oxygen Delivery Method Room Air Oxygen Flow Rate 0 Oxygen Delivery Method Room Air Oxygen Flow Rate 0 Narrative Exam Narrative: General: Patient is a thin frail appearing elderly female in no distress at this time. HEENT: Normocephalic, atraumatic, extraocular muscles intact, oral pharynx is clear and mucous membranes are moist. Neck is supple and symmetric, trachea is midline, no adenopathy, no thyroid enlargement, nontender, no masses palpated. Negative for JVD Chest: no nasal flaring, retractions, or tachypneic labored breathing. Lungs: Auscultation of all lung sharpe are clear without adventitious sounds, wheezes, rhonchi, or rales. Cardio: Bradycardic rate and rhythm Abdomen: Soft nontender, negative for organomegaly, or masses. Bowel sounds are present in all 4 quadrants without guarding or rebound, no CVA tenderness. Musculoskeletal: Muscle strength and tone are equal within normal limits, no deformity, crepitus, effusions, cyanosis, clubbing or edema present. Full range of motion intact radial and pedal pulses are normal. Skin: Warm dry and intact without rashes, ulcerations or petechiae. Neuro: Alert and orientated x3, moves all extremities, sensation to touch in tact, no gross deficits noted of cranial nerves. Psych: Patient has a well-kept appearance, appropriate affect, mental status attitude thought context and judgment are appropriate for age. Objective Labs 08/14/22 21:59 08/15/22 05:47 Labs: Laboratory Results - last 24 hr 08/14/22 08/14/22 08/14/22 21:59 21:59 21:59 WBC 9.4 RBC 5.06 Hgb 14.2 Hct 42.9 MCV 84.9 MCH 28.0 MCHC 33.0 RDW 15.0 H Plt Count 328 Neut % (Auto) 72.2 Lymph % (Auto) 18.2 L [place] % (Auto) 7.7 Eos % (Auto) 1.0 L Baso % (Auto) 0.9 Neut # (Auto) 6800 Lymph # (Auto) 1700 [place] # (Auto) 700 Eos # (Auto) 100 Baso # (Auto) 100 PT 13.5 H INR 1.2 APTT 50 H Sodium 135 L Potassium 4.4 Chloride 97 L Carbon Dioxide 27 BUN 27 H Creatinine 0.87 Estimated GFR > 60 BUN/Creatinine Ratio 31.0 H Glucose 103 Calcium 9.4 Magnesium 1.9 Total Bilirubin 0.8 AST 26 ALT 17 Alkaline Phosphatase 109 Total Creatine Kinase 44 CK-MB (CK-2) TNP CK-MB (CK-2) Rel Index TNP Troponin I 0.018 NT-Pro-B Natriuret Pep Total Protein 7.7 Albumin 4.4 Globulin 3.3 Albumin/Globulin Ratio 1.3 Lipase 152 TSH Free T4 SARS-CoV-2 (PCR) 08/14/22 08/14/22 08/14/22 22:04 22:04 22:05 WBC RBC Hgb Hct MCV MCH MCHC RDW Plt Count Neut % (Auto) Lymph % (Auto) [place] % (Auto) Eos % (Auto) Baso % (Auto) Neut # (Auto) Lymph # (Auto) [place] # (Auto) Eos # (Auto) Baso # (Auto) PT INR APTT Sodium Potassium Chloride Carbon Dioxide BUN Creatinine Estimated GFR BUN/Creatinine Ratio Glucose Calcium Magnesium Total Bilirubin AST ALT Alkaline Phosphatase Total Creatine Kinase CK-MB (CK-2) CK-MB (CK-2) Rel Index Troponin I NT-Pro-B Natriuret Pep 6090 H Total Protein Albumin Globulin Albumin/Globulin Ratio Lipase TSH 5.89 H Free T4 1.74 SARS-CoV-2 (PCR) Negative 08/15/22 08/15/22 08/15/22 02:13 05:47 05:47 WBC RBC Hgb Hct MCV MCH MCHC RDW Plt Count Neut % (Auto) Lymph % (Auto) [place] % (Auto) Eos % (Auto) Baso % (Auto) Neut # (Auto) Lymph # (Auto) [place] # (Auto) Eos # (Auto) Baso # (Auto) PT INR APTT Sodium 134 L Potassium 4.1 Chloride 96 L Carbon Dioxide 28 BUN 27 H Creatinine 0.89 Estimated GFR > 60 BUN/Creatinine Ratio 30.3 H Glucose 97 Calcium 9.2 Magnesium Total Bilirubin AST ALT Alkaline Phosphatase Total Creatine Kinase CK-MB (CK-2) CK-MB (CK-2) Rel Index Troponin I 0.013 0.014 NT-Pro-B Natriuret Pep Total Protein Albumin Globulin Albumin/Globulin Ratio Lipase TSH Free T4 SARS-CoV-2 (PCR) [facility] Medical History Fibromyalgia Hypertension Hypothyroidism Myocardial infarction Restrictive lung disease Surgical History Status post hip surgery Family History Mother TIA (transient ischemic attack) Father No problems noted. Social History household members: significant other Smoking Status: Former smoker alcohol intake: current substance use type: does not use Assessment & Plan Assessment & Plan narrative: Sue Maritn is a 72-year-old female with a PMH of idiopathic pulmonary fibrosis, HTN, hypothyroid, fibromyalgia, ascending aortic aneurysm, depression, history of epilepsy, NSTEMI 06/12-pending cardiac follow-up/catheterization, and left hip fracture ORIF with ARF 06/29/2022??Followed by Cardiology at [facility] for ?too bad valves and aortic aneurysm?.? After [place] metoprolol 50 mg b.i.d. initiated and complains of low energy with exertional angina/shortness of breath,and bradycardia. Patient has sustained bradycardia in ED and on floor in the 40s. Patient admitted for observation due to bradycardia, exertional angina/dyspnea. Once bradycardia can be resolved the patient can be seen emergently by Dr. Platt cardiology at [place] for cardiac catheterization 1. Bradycardia, with exertional angina/dyspnea, acute, present on admission -EKG sinus Abhijit rate of 44 LVH with repolarization abnormalities prolonged QTC [address] or T-wave changes. -echo 01/10 with an EF 60 65%. -[place] cardiology was consulted in the ED where patient is being followed on- call gas pit worker recommended decreasing the metoprolol dose by half and adding 2.5 amlodipine, and repeating echo, with urgent follow-up in their clinic. -patient verbalized that she had echo completed by Dr. Platt [facility] approximately 1 week ago which was found Dr. Vega to have been completed on 08/02/2021-will not repeat echo. -initially reduce metoprolol to 25 b.i.d., but asked patient's heart rate continued in the 40s throughout the night. Metoprolol -initiated amlodipine 2.5 q.day -Recommend reaching out to Dr Platt for fast tracking Cardiac cath as an outpatient. -EMERGENT follow-up. 2. History of recent NSTEMI, requiring cardiac catheterization, acute on chronic, present on admission-patient is stable and in no distress -initial troponin 0.018 will trend x3 -06/28/2022 admit: Troponin was 0.050, down trending to 0.041.? It likely to be cardiac demand ischemia. -PT 13.5 although INR stable 1.2 PTT 50 -Ordered BNP, TSH/Free T4 3. Ascending aortic aneurysm, x2, chronic, present on admission -managed by Dr. Lc [facility] Measuring 6.4 cm.? She will need close follow-up.? She is on metoprolol for blood pressure control. 4. Idiopathic pulmonary fibrosis, chronic, present on admission She is not on any outpatient medications or inhalers. 5. Fibromyalgia with chronic pain syndrome -Patient takes fentanyl 75 mcg Q 72 hours.? Percocet q.4-6 hours- -discussed with patient my concerns regarding polypharmacy in relation to her bradycardia and that she may need to be tapered back on her pain medications-a discussion for follow-up with Cardiology and PCP 6. Depression, chronic, present on admission Continue outpatient dose of Lamictal.? She also uses diazepam at bedtime for sleep. 8. Hypothyroidism, acquired, chronic, present on admission -Ordered TSH/T$ - TSH 5.89 -change home dose of 100 levothyroxine to 125mcg QD repeat tsh outpatient follow-up with PCP CODE: Full Proxy: Yovani Whaet, life partner COVID PCR:Negative DVT/VTE prophylaxis: Lovenox and SCD Disposition: Patient admitted for observation expected length of stay less than 2 midnights once bradycardia has been resolved, patient to emergent outpatient follow-up Dr. Platt cardiology for cardiac catheterization. I have utilized all available immediate resources to obtain, update, or review the patient's current medications. I confirmed that the patient's advanced care plan is present, Code status is documented and/or surrogate decision maker is listed in the patient's medical record. I have personally reviewed patient's chart notes from PCP, specialists, diagnostic imaging, and laboratory results. Time Spent With Patient Critical Care time: I spent a total of [] minutes of critical care time on this patient's care today; this time is exclusive of procedural time.
--- NOTE | 2022-08-15 11:57 | PT.IIE ---
Surgical History (Last Reviewed 08/15/22 @ 02:25 [facility] Status post hip surgery Medical History (Last Reviewed 08/15/22 @ 02:25 by EDUARDO BarriosMARIA EUGENIA) Fibromyalgia Hypertension Hypothyroidism Myocardial infarction Restrictive lung disease Physical Therapy Inpatient Evaluation/Re-Eval M1 PT/OT-IP Prior Functional Status Start: 08/15/22 13:37 Freq: NEEDED Status: Active Protocol: Document 08/15/22 11:57 AB (Rec: 08/15/22 13:50 AB [id number]) Medical Review Prior Functional Status Medical History Reviewed Yes Communication able to make needs known Mobility and Gait pt stated that she is modified independent with all mobilities and ambulation without AD indoors but uses a 4WW for outdoor mobility Activities of Daily Living and IADL's Per OT: Pt needing assist for socks and shoes due to recent hip surgery, s/p left hip ORIF 06/29/22 with posterior hip precautions. Prior Functional Level (Other details) pt with h/o fall and sustained a L hip fx and underwent L hip hemiarthroplasty last 04/12. pt with posterior hip precautions. Social History Household Members significant other Number of Floors (Floors) One Floor Number of Stairs To Enter/Railing? no steps to enter and has a ramp Home Environment Standard Height Toilet,Walk in Shower,Tub/Shower,Ramp Home Equipment Front Wheel Walker,Four Wheel Walker,Manual Wheelchair, Bedside Commode,Raised Toilet Seat Without Armrests Additional Social History Comment pt sponge bathes and does not use the shower M2 PT-IP Current Condition Start: 08/15/22 13:37 Freq: NEEDED Status: Active Protocol: Document 08/15/22 11:57 AB (Rec: 08/15/22 13:50 AB [id number]) Physical Therapy Current Condition Current Condition Evaluation Date 08/15/22 Treatment Diagnosis bradycardia; difficulty in walking Onset Date 08/12/22 M3 PT-IP Subjective Start: 08/15/22 13:37 Freq: NEEDED Status: Active Protocol: Document 08/15/22 11:57 AB (Rec: 08/15/22 13:50 AB [id number]) Subjective Physical Therapy Visit Type Type Initial Evaluation Visit Start Time 11:57 Visit Stop Time 12:17 Total Visit Minutes 20 Number of HAND CELL TUBER Visits 0 Physical Therapy Visit Comments Patient Comments agreeable to do PT Therapy Pain Assessment Pain Present Pain Present Denied Pain M4 PT-IP Mobility and Gait Start: 08/15/22 13:37 Freq: NEEDED Status: Active Protocol: Document 08/15/22 11:57 AB (Rec: 08/15/22 13:50 AB [id number]) PT-Bed Mobility Assessment Supine to Sit Supine to Sit Independent PT-Transfer Assessment Sit to and From Stand Sit to and from Stand Standby Assistance,1 Person Assistance,Use of Upper Extremities Equipment Transfer Assistive Device None Transfers Transfer Destination Toilet Transfer Technique ambulated Transfer Ability Level of Assist Standby Assistance Comments Mobility Comments pt can be impulsive and cued for safety. completed supine to sit mod I. sit to stand SBA. pt requested to use the toilet and ambulated to the toilet without AD SBA. cued to slow down. pt completed toileting without assistance. ambulated toward the sink SBA without AD and was able to maintain standing balance sBA. pt ambulated in room without AD ~ 20ft SBA. pt agreed to sit up on the chair for lunch. positioned on the chair. call light and table placed within reach. HR: 55 bpm Gait Assessment Gait Gait Assistance Required: Standby Assistance Distance (Feet) 20 Able to Maintain Weight Bearing Status Yes During Gait Assistive Devices Assistive Device None Orthotic/Prosthetic Devices or Brace: No Factors Limiting Gait Function Factors Limiting Gait Function Decreased Activity Tolerance, Decreased Strength,Poor Balance PT-Balance Assessment Sitting Balance and Reactions Static Sitting Balance Ability Normal Dynamic Sitting Balance Ability Normal Standing Balance and Reactions Static Standing Balance Ability Good Dynamic Standing Balance Ability Good Device Used without AD M5 PT-IP Objective Assessments Start: 08/15/22 13:37 Freq: NEEDED Status: Active Protocol: Document 08/15/22 11:57 AB (Rec: 08/15/22 13:50 AB [email or web address]) Orientation Orientation/Cognition Level of Alertness Alert Orientation Name Language Function Ability No Deficits Noted Safety Awareness Decreased Safety Awareness Memory Description No Deficits Noted Gross Range of Motion Lower Extremity ROM Assessment Within Functional Limits Strength Lower Extremity Strength Assessment Within Functional Limits Sensation Assessment Sensation Gross Sensation WNL Muscle Tone Muscle Tone WNL Yes M6 PT-IP Treatment Start: 08/15/22 13:37 Freq: NEEDED Status: Active Protocol: Document 08/15/22 11:57 AB (Rec: 08/15/22 13:50 AB [id number]) Physical Therapy Treatment Education Education Provided Precautions,Safety M7 PT-IP Assessment and Plan Start: 08/15/22 13:37 Freq: NEEDED Status: Active Protocol: Document 08/15/22 11:57 AB (Rec: 08/15/22 13:50 AB [id number]) PT Summary Assessment and Plan Potential Rehabilitation Potential Fair Status of Condition at Evaluation Stable Summary Impairments Pain,ROM,Strength,Balance, Coordination,Sensation,Tone, Cognition,Bed Mobility, Transfers,Gait,Activity Tolerance Assessment Summary PT eval completed. Pt requiring SBA with mobility without AD for safety and precautions. pt has her spouse to assist her at home. Pt is at [facility] and no further PT needs at this time. Frequency of Treatment Frequency Of Treatment Discharge Precautions Posterior Hip Precautions No Hip Flexion > 90 degrees,No Hip Internal Rotation,No Hip Adduction Recommendations To Nursing Amount of Assist Needed Standby Assistance Discharge Recommendations PT Discharge Recommendations Home with Assistance Transportation Needs at Discharge Private Vehicle
--- NOTE | 2022-08-15 12:01 | OT.IP.EVAL ---
Past Medical History (Last Reviewed 08/15/22 @ 02:25 by EDUARDO BarriosMARIA EUGENIA) Fibromyalgia Hypertension Hypothyroidism Myocardial infarction Restrictive lung disease Surgical History (Last Reviewed 08/15/22 @ 02:25 by EDUARDO BarriosMARIA EUGENIA) Status post hip surgery Occupational Therapy Inpatient Evaluation/Re-Eval M1 PT/OT-IP Prior Functional Status Start: 08/15/22 13:37 Freq: NEEDED Status: Active Protocol: Document 08/15/22 11:57 AB (Rec: 08/15/22 13:50 AB [email or web address]) Medical Review Prior Functional Status Medical History Reviewed Yes Communication able to make needs known Mobility and Gait pt stated that she is modified independent with all mobilities and ambulation without AD indoors but uses a 4WW for outdoor mobility Activities of Daily Living and IADL's Per OT: Pt needing assist for socks and shoes due to recent hip surgery, s/p left hip [id number] 06/29/22 with posterior hip precautions. Prior Functional Level (Other details) pt with h/o fall and sustained a L hip fx and underwent L hip hemiarthroplasty last 04/12. pt with posterior hip precautions. Social History Household Members significant other Number of Floors (Floors) One Floor Number of Stairs To Enter/Railing? no steps to enter and has a ramp Home Environment Standard Height Toilet,Walk in Shower,Tub/Shower,Ramp Home Equipment Front Wheel Walker,Four Wheel Walker,Manual Wheelchair, Bedside Commode,Raised Toilet Seat Without Armrests Additional Social History Comment pt sponge bathes and does not use the shower M2 OT-IP Current Condition Start: 08/15/22 12:15 Freq: Status: Active Protocol: Document 08/15/22 12:15 [facility] (Rec: 08/15/22 12:36 [facility] [id number]) Occupational Therapy Current Condition Current Condition Evaluation Date 08/15/22 Treatment Diagnosis Bradycardia, recent NSTEMI Diagnosis Onset Date 08/15/22 Post Operative Precautions Posterior Hip Precautions No Hip Flexion > 90 degrees,No Hip Internal Rotation,No Hip Adduction M3 OT- IP Subjective and Pain Start: 08/15/22 12:15 Freq: Status: Active Protocol: Document 08/15/22 12:15 [facility] (Rec: 08/15/22 12:36 [facility] [id number]) OT- Subjective Occupational Therapy Visit Type Type Initial Evaluation Visit Start Time 11:30 Visit Stop Time 12:01 Total Visit Minutes 31 Occupational Therapy Visit Comments Patient Comments Pt agreed to do OT eval and wanting to brush her teeth. Patient/Caregiver Goals To go home. OT Pain Assessment Pain When Pain Assessed At Rest Pain Present Pain Present Denied Pain M4 OT- IP ADL's Start: 08/15/22 12:15 Freq: Status: Active Protocol: Document 08/15/22 12:15 [facility] (Rec: 08/15/22 12:36 [facility] [id number]) OT [id number] Comments OT Self-Feeding Comments Not at meal time. OT ADL-Grooming General Evaluation Grooming Ability Independent OT ADL-Oral Care General Eval Oral Care Ability Independent OT ADL-Dressing General Eval Lower Body Dressing Ability Maximum Assistance Comments OT Dressing Comments Due to posterior hip precautions, pt's has been assisting her with her LB dressing needs. Pt has a pattern weaver and sock aid at home. OT ADL-Toileting Comments OT Toileting Comments Pt states has been able to use the toilet on her own. OT ADL-Bathing Comments OT Bathing Comments Pt states does not like using a shower chair and has mainly been sponging off recently. M5 OT- IP IADL's Start: 08/15/22 12:15 Freq: Status: Active Protocol: Document 08/15/22 12:15 [facility] (Rec: 08/15/22 12:36 [facility] [id number]) OT-Instrumental Activities of Daily Living Home Safety Awareness Awareness of Need for Assistance at Home Good Awareness Ability to Problem Solve Emergency Able to Problem Solve Situations Meal Preparation Meal Preparation Caregiver Provides Assist Grievance Coordinator Grievance Coordinator Caregiver Provides Assist M6 OT- IP Functional Cognition Start: 08/15/22 12:15 Freq: Status: Active Protocol: Document 08/15/22 12:15 [facility] (Rec: 08/15/22 12:36 [facility] [id number]) Cognitive Factors Limiting Selfcare Function Cognitive Ability Level of Alertness Alert Patient Orientation Name,Age,Birthday,Month,Date, Year,Day of Week,Place, Situation Attention Span Ability Capable of Focused Attention, Capable of Sustained Attention Ability to Follow Commands Able to Follow Multi-Step Commands Cognitive Comments Cognitive Assessment Comments Pt appears intact for all cognitive needs. OT- Vision and Hearing OT- Hearing Assessment OT- Hearing Assessment WFL OT- Vision Assessment Visual Acuity Glasses For Reading M7 OT- IP Mobility and Balance Start: 08/15/22 12:15 Freq: Status: Active Protocol: Document 08/15/22 12:15 [facility] (Rec: 08/15/22 12:36 [facility] [id number]) OT- Bed Mobility Assessment Supine to Sit Supine to Sit Assist Independent Sit to Supine Sit to Supine Assist Independent OT-Transfer Assessment Sit to and From Stand Sit to and from Stand Independent Transfers Transfer Ability Independent Technique Transfer Destination Bed Comments Mobility Comments Pt independent with mobility in the room for bed mobility and getting in and out of the bed. OT- Balance Assessment Sitting Balance and Reactions Static Sitting Balance Ability Normal Dynamic Sitting Balance Ability Good Standing Balance and Reactions Static Standing Balance Ability Good Dynamic Standing Balance Ability Fair M8 OT- IP Objective Assessments Start: 08/15/22 12:15 Freq: Status: Active Protocol: Document 08/15/22 12:15 [facility] (Rec: 08/15/22 12:36 [facility] [id number]) OT Strength Upper Extremity Strength Assessment Within Functional Limits OT-Muscle Tone Assessment Muscle Tone WNL Yes M9 OT- IP Assessment and Plan Start: 08/15/22 12:15 Freq: Status: Active Protocol: Document 08/15/22 12:15 [facility] (Rec: 08/15/22 12:36 [facility] [id number]) OT Summary Assessment and Plan Potential Rehabilitation Potential Good Analytic Complexity at Evaluation Low Summary OT Impairments Functional Mobility,Dressing, Bathing,Activity Tolerance Progress Towards Goals Progressing Toward Goals Assessment Summary Pt low complexity and main barrier is decreased activity tolerance due to pt is bradycardic. Able to go over energy conservation strategies , and information given regarding resources for caregivers. Pt to go home when medically stable. Goals Patient/Caregiver Education Goal Demonstrate Energy Conservation and Pacing Days to Meet Goals 1 Frequency of Treatment Frequency Of Treatment Once a Day Treatment Plan OT Treatment Plan Patient/Family Education, Discharge Planning Discharge Recommendations OT Discharge Recommendations Home with Assistance Transportation Needs at Discharge Private Vehicle
--- NOTE | 2022-08-15 12:01 | OT.IP.EVAL ---
Past Medical History (Last Reviewed 08/15/22 @ 02:25 by EDUARDO BarriosMARIA EUGENIA) Fibromyalgia Hypertension Hypothyroidism Myocardial infarction Restrictive lung disease Surgical History (Last Reviewed 08/15/22 @ 02:25 by EDUARDO BarriosMARIA EUGENIA) Status post hip surgery Occupational Therapy Inpatient Evaluation/Re-Eval M1 PT/OT-IP Prior Functional Status Start: 08/15/22 12:15 Freq: NEEDED Status: Active Protocol: Document 08/15/22 12:15 [facility] (Rec: 08/15/22 12:36 [facility] [id number]) Medical Review Prior Functional Status Communication Independent Mobility and Gait Pt states use of 4ww outside Activities of Daily Living and IADL's Pt needing assist for socks and shoes due to recent hip surgery, s/p left hip ORIF 06/29/22 with posterior hip precautions. Social History Household Members significant other Number of Floors (Floors) One Floor Number of Stairs To Enter/Railing? ramp Home Environment Standard Height Toilet,Walk in Shower,Tub/Shower,Ramp Home Equipment Front Wheel Walker,Four Wheel Walker,Manual Wheelchair, Bedside Commode,Raised Toilet Seat Without Armrests M2 OT-IP Current Condition Start: 08/15/22 12:15 Freq: Status: Active Protocol: Document 08/15/22 12:15 [facility] (Rec: 08/15/22 12:36 [facility] [id number]) Occupational Therapy Current Condition Current Condition Evaluation Date 08/15/22 Treatment Diagnosis Bradycardia, recent NSTEMI Diagnosis Onset Date 08/15/22 Post Operative Precautions Posterior Hip Precautions No Hip Flexion > 90 degrees,No Hip Internal Rotation,No Hip Adduction M3 OT- IP Subjective and Pain Start: 08/15/22 12:15 Freq: Status: Active Protocol: Document 08/15/22 12:15 [facility] (Rec: 08/15/22 12:36 [facility] [id number]) OT- Subjective Occupational Therapy Visit Type Type Initial Evaluation Visit Start Time 11:30 Visit Stop Time 12:01 Total Visit Minutes 31 Occupational Therapy Visit Comments Patient Comments Pt agreed to do OT eval and wanting to brush her teeth. Patient/Caregiver Goals To go home. OT Pain Assessment Pain When Pain Assessed At Rest Pain Present Pain Present Denied Pain M4 OT- IP ADL's Start: 08/15/22 12:15 Freq: Status: Active Protocol: Document 08/15/22 12:15 [facility] (Rec: 08/15/22 12:36 [facility] [id number]) OT [id number] Comments OT Self-Feeding Comments Not at meal time. OT ADL-Grooming General Evaluation Grooming Ability Independent OT ADL-Oral Care General Eval Oral Care Ability Independent OT ADL-Dressing General Eval Lower Body Dressing Ability Maximum Assistance Comments OT Dressing Comments Due to posterior hip precautions, pt's has been assistng her with her LB dressing needs. Pt has a director software and sock aid at home. OT ADL-Toileting Comments OT Toileting Comments Pt states has been able to use the toilet on her own. OT ADL-Bathing Comments OT Bathing Comments Pt states does not like using a shower chair andn has mainly been sponging off recently. M5 OT- IP IADL's Start: 08/15/22 12:15 Freq: Status: Active Protocol: Document 08/15/22 12:15 [facility] (Rec: 08/15/22 12:36 [facility] [id number]) OT-Instrumental Activities of Daily Living Home Safety Awareness Awareness of Need for Assistance at Home Good Awareness Ability to Problem Solve Emergency Able to Problem Solve Situations Meal Preparation Meal Preparation Caregiver Provides Assist Warp Dyeing Tender Warp Dyeing Tender Caregiver Provides Assist M6 OT- IP Functional Cognition Start: 08/15/22 12:15 Freq: Status: Active Protocol: Document 08/15/22 12:15 [facility] (Rec: 08/15/22 12:36 [facility] [id number]) Cognitive Factors Limiting Selfcare Function Cognitive Ability Level of Alertness Alert Patient Orientation Name,Age,Birthday,Month,Date, Year,Day of Week,Place, Situation Attention Span Ability Capable of Focused Attention, Capable of Sustained Attention Ability to Follow Commands Able to Follow Multi-Step Commands Cognitive Comments Cognitive Assessment Comments Pt appears intact for all cognitive needs. OT- Vision and Hearing OT- Hearing Assessment OT- Hearing Assessment WFL OT- Vision Assessment Visual Acuity Glasses For Reading M7 OT- IP Mobility and Balance Start: 08/15/22 12:15 Freq: Status: Active Protocol: Document 08/15/22 12:15 [facility] (Rec: 08/15/22 12:36 [facility] [id number]) OT- Bed Mobility Assessment Supine to Sit Supine to Sit Assist Independent Sit to Supine Sit to Supine Assist Independent OT-Transfer Assessment Sit to and From Stand Sit to and from Stand Independent Transfers Transfer Ability Independent Technique Transfer Destination Bed Comments Mobility Comments Pt independent with mobility in the room for bed mobility and getting in and out of the bed. OT- Balance Assessment Sitting Balance and Reactions Static Sitting Balance Ability Normal Dynamic Sitting Balance Ability Good Standing Balance and Reactions Static Standing Balance Ability Good Dynamic Standing Balance Ability Fair M8 OT- IP Objective Assessments Start: 08/15/22 12:15 Freq: Status: Active Protocol: Document 08/15/22 12:15 [facility] (Rec: 08/15/22 12:36 [facility] [id number]) OT Strength Upper Extremity Strength Assessment Within Functional Limits OT-Muscle Tone Assessment Muscle Tone WNL Yes M9 OT- IP Assessment and Plan Start: 08/15/22 12:15 Freq: Status: Active Protocol: Document 08/15/22 12:15 [facility] (Rec: 08/15/22 12:36 [facility] [id number]) OT Summary Assessment and Plan Potential Rehabilitation Potential Good Analytic Complexity at Evaluation Low Summary OT Impairments Functional Mobility,Dressing, Bathing,Activity Tolerance Progress Towards Goals Progressing Toward Goals Assessment Summary Pt low complexity and main barrier is decreased activity tolerance due to pt is bradycardic. Able to go over energy conservation strategies , and information given regarding resources for caregivers. Pt to go home when medically stable. Goals Patient/Caregiver Education Goal Demonstrate Energy Conservation and Pacing Days to Meet Goals 1 Frequency of Treatment Frequency Of Treatment Once a Day Treatment Plan OT Treatment Plan Patient/Family Education, Discharge Planning Discharge Recommendations OT Discharge Recommendations Home with Assistance Transportation Needs at Discharge Private Vehicle
--- NOTE | 2022-08-15 13:57 | CM.DANOTE ---
Initial Discharge Assessment Note: Case reviewed, met with patient. Introduced self and role. Payer: TIM SCHW[employer]Z out of [facility] PCP: Raffi Washingtonjose 72 year old with significant PMH and recent hip surgery in June. She was admitted with SOB, exertional angina, bradycardia, fatigue. She sees cardiology at [facility]. She had an Echo a week ago. She lives with her life partner Yovani who assists her and drives. Patient is usually independent and can drive. Plan: When medically cleared, discharge home to care of partner. KIEL Discharge Planning/Care Management CM Discharge Assessment Start: 08/15/22 12:21 Freq: Status: Active Protocol: Document 08/15/22 13:27 (Rec: 08/15/22 13:56 [id number]) Discharge Planning Assessment Assigned Automobile Mechanic Motor Jud Allen RN/DCP Advance Directives? No History Provided By Patient,Medical Record Prior Living Arrangements House Household Members significant other Type of transporation used prior to Relies on Others admit Independent with ADL's Yes Is patient alert and oriented? Yes Caregiver for Another No DME Already Rented / Owned Bath Bench,Wheelchair,Elevated Toilet Seat,FWW / Walker Comment Patient declines Home Health Barriers to Discharge No Discharge Plan Home Transportation Arrangement Partner or friend Referrals Initiated None needed Additional Comment Declines Whiteboard Updated in Patient Room with Yes name and ext. # of Automobile Mechanic Motor Review Status In Process Next Review Type Continued Stay Review
--- NOTE | 2022-08-15 14:26 | PM.DS.1 ---
History of Present Illness History of Present Illness Date Patient Seen: 08/15/22 Time Patient Seen: 12:00 Chief complaint: heart is fluctuating, uncontrolled temperature Narrative: Sue Martin is a 72-year-old female with a PMH of idiopathic pulmonary fibrosis, HTN, hypothyroid, fibromyalgia, chronic pain medication, meth use or hx , regular ETOH use, ascending aortic aneurysm, depression, history of epilepsy, NSTEMI 06/12-pending cardiac follow-up/catheterization, and left hip fracture ORIF with ARF 06/29/2022??Followed by Cardiology at [facility] for ?too bad valves and aortic aneurysm?.? After MD with metoprolol 50 mg b.i.d. and complains of low energy with exertional angina/shortness of breath that resolves with nitroglycerin occurring more frequently, slow heart beat and over last 24 hours chills and significantly increased fatigue which has been dramatically decreasing her activity level. Her cardiology office today advised she come in for further evaluation.? She reports no overt fevers, cough, orthopnea, lower extremity edema, headaches but overall general malaise and fatigue. On admit patient denies chest pain & SOB at rest, headache, changes in vision, difficulty swallowing, speech impairment, weakness, numbness, tingling, difficulty with ambulation, recent falls, head injury, LOC, fever, body aches, chills, cough, recent exposure to illness, abdominal pain, nausea, vomiting, urinary incontinence/retention, dysuria, frequency, urgency, hematuria, bowel changes, constipation, incontinence, melena, rashes, recent illness with the exception of those noted above.. Admit vitals temp 98?, 116/68, continued bradycardia HR 41, tachypneic RR 42, O2 saturation 97% on room air. CBC unremarkable, chloride 97, BUN 27, creatinine clearance 42, PT 13.5 although INR stable 1.2 PTT 50, troponin 0.018, COVID is negative. Patient's EKG sinus Abhijit rate of 44 LVH with repolarization abnormalities prolonged QTC [address] or T-wave changes. Last echo 01/10 with an EF 60 65%. Chest x-ray demonstrated aneurysmal dilation ascending thoracic aorta redemonstrated, enlarged heart. [facility] was consulted in the ED where patient is being followed on-call mobile application tester recommended decreasing the metoprolol dose by half and adding 2.5 amlodipine, and repeating echo, with urgent follow-up in their clinic. Patient admitted for observation due to bradycardia, exertional angina/dyspnea. Discharge Providers Provider Date of admission: 08/15/22 01:56 Discharge Date: 08/15/22 Primary care physician: Raffi Quiroga MD Consults: 08/15/22 02:04 Consult to Occupational Therapy Evaluate & Treat Comment: Fatigue, Hipfx-ORIF 07/12 Physician Instructions: Evaluate and treat Consult to Physical Therapy Evaluate & Treat Comment: Fatigue, Hipfx-ORIF 07/12 Physician Instructions: Evaluate and Treat 08/15/22 02:38 Consult to Superintendent [employer] Routine Comment: Discharge provider: Yovani Vega DO Summary Hospital Course Discharge Diagnosis: Sue Martin is a 72-year-old female with a PMH of idiopathic pulmonary fibrosis, HTN, hypothyroid, fibromyalgia, ascending aortic aneurysm, depression, history of epilepsy, NSTEMI 06/12-pending cardiac follow-up/catheterization, and left hip fracture ORIF with ARF 06/29/2022??Followed by Cardiology at [facility] for ?too bad valves and aortic aneurysm?.? After MD metoprolol 50 mg b.i.d. initiated and complains of low energy with exertional angina/shortness of breath,and bradycardia. Patient has sustained bradycardia in ED and on floor in the 40s. Patient admitted for observation due to bradycardia, exertional angina/dyspnea. Once bradycardia can be resolved the patient can be seen emergently by Dr. Platt cardiology at [facility] for cardiac catheterization 1. Bradycardia, with exertional angina/dyspnea, acute, present on admission -EKG sinus Abhijit rate of 44 LVH with repolarization abnormalities prolonged QTC [address] or T-wave changes. -echo 01/10 with an EF 60 65%. -patient verbalized that she had echo completed by Dr. Platt [facility] approximately 1 week ago which was found Dr. Vega to have been completed on 08/02/2021-will not repeat echo. -metoprolol stopped due to bradycardia -initiated amlodipine 2.5 q.day -Recommend reaching out to Dr Platt for fast tracking Cardiac cath as an outpatient. -EMERGENT follow-up. 2. History of recent NSTEMI, requiring cardiac catheterization, acute on chronic, present on admission-patient is stable and in no distress -initial troponin 0.018 will trend x3 -06/28/2022 admit: Troponin was 0.050, down trending to 0.041.? It likely to be cardiac demand ischemia. -PT 13.5 although INR stable 1.2 PTT 50 -Ordered BNP, TSH/Free T4 3. Ascending aortic aneurysm, x2, chronic, present on admission -managed by Dr. Lc Yusuf Cardiology Measuring 6.4 cm.? She will need close follow-up.? She is on metoprolol for blood pressure control. 4. Idiopathic pulmonary fibrosis, chronic, present on admission She is not on any outpatient medications or inhalers. 5. Fibromyalgia with chronic pain syndrome -Patient takes fentanyl 75 mcg Q 72 hours.? Percocet q.4-6 hours- -discussed with patient my concerns regarding polypharmacy in relation to her bradycardia and that she may need to be tapered back on her pain medications-a discussion for follow-up with Cardiology and PCP 6. Depression, chronic, present on admission Continue outpatient dose of Lamictal.? She also uses diazepam at bedtime for sleep. 8. Hypothyroidism, acquired, chronic, present on admission - TSH 5.89, free T4 1.74 and normal -PCP can decide if to change synthroid dose CODE: Full Proxy: Yovani Wheat, life partner COVID PCR:Negative DVT/VTE prophylaxis: Lovenox and SCD Hospital Course: Admitted for bradycardia and echo. Recent echo found from 1 week prior which showed EF 60-65%. Her home metoprolol was held and sinus abhijit continued but only to the 40's with sleep and 50's while awake. She was discharged to f/u with outpatient cardiology for possible cath. Time Spent with Patient Time spent: Greater than 30 minutes Exam Vital Signs (past 8 hours): - 08/15/22 08:00 08/15/22 08:00 Temperature 97.6 F Pulse Rate 43 L Respiratory Rate 42 H Blood Pressure 123/53 L Pulse Oximetry 98 Oxygen Delivery Method Room Air Oxygen Flow Rate 0 Oxygen Delivery Method Room Air Oxygen Flow Rate 0 Narrative Exam Narrative: General: Patient is a thin frail appearing elderly female in no distress at this time. HEENT: Normocephalic, atraumatic, extraocular muscles intact, oral pharynx is clear and mucous membranes are moist. Neck is supple and symmetric, trachea is midline, no adenopathy, no thyroid enlargement, nontender, no masses palpated. Negative for JVD Chest: no nasal flaring, retractions, or tachypneic labored breathing. Lungs: Auscultation of all lung sharpe are clear without adventitious sounds, wheezes, rhonchi, or rales. Cardio: Bradycardic rate and rhythm Abdomen: Soft nontender, negative for organomegaly, or masses. Bowel sounds are present in all 4 quadrants without guarding or rebound, no CVA tenderness. Musculoskeletal: Muscle strength and tone are equal within normal limits, no deformity, crepitus, effusions, cyanosis, clubbing or edema present. Full range of motion intact radial and pedal pulses are normal. Skin: Warm dry and intact without rashes, ulcerations or petechiae. Neuro: Alert and orientated x3, moves all extremities, sensation to touch intact, no gross deficits noted of cranial nerves. Psych: Patient has a well-kept appearance, appropriate affect, mental status attitude thought context and judgment are appropriate for age. Objective Labs 08/14/22 21:59 08/15/22 05:47 Labs: Laboratory Results - last 24 hr 08/14/22 08/14/22 08/14/22 21:59 21:59 21:59 WBC 9.4 RBC 5.06 Hgb 14.2 Hct 42.9 MCV 84.9 MCH 28.0 MCHC 33.0 RDW 15.0 H Plt Count 328 Neut % (Auto) 72.2 Lymph % (Auto) 18.2 L [place] % (Auto) 7.7 Eos % (Auto) 1.0 L Baso % (Auto) 0.9 Neut # (Auto) 6800 Lymph # (Auto) 1700 [place] # (Auto) 700 Eos # (Auto) 100 Baso # (Auto) 100 PT 13.5 H INR 1.2 APTT 50 H Sodium 135 L Potassium 4.4 Chloride 97 L Carbon Dioxide 27 BUN 27 H Creatinine 0.87 Estimated GFR > 60 BUN/Creatinine Ratio 31.0 H Glucose 103 Calcium 9.4 Magnesium 1.9 Total Bilirubin 0.8 AST 26 ALT 17 Alkaline Phosphatase 109 Total Creatine Kinase 44 CK-MB (CK-2) TNP CK-MB (CK-2) Rel Index TNP Troponin I 0.018 NT-Pro-B Natriuret Pep Total Protein 7.7 Albumin 4.4 Globulin 3.3 Albumin/Globulin Ratio 1.3 Lipase 152 TSH Free T4 SARS-CoV-2 (PCR) 08/14/22 08/14/22 08/14/22 22:04 22:04 22:05 WBC RBC Hgb Hct MCV MCH MCHC RDW Plt Count Neut % (Auto) Lymph % (Auto) [place] % (Auto) Eos % (Auto) Baso % (Auto) Neut # (Auto) Lymph # (Auto) [place] # (Auto) Eos # (Auto) Baso # (Auto) PT INR APTT Sodium Potassium Chloride Carbon Dioxide BUN Creatinine Estimated GFR BUN/Creatinine Ratio Glucose Calcium Magnesium Total Bilirubin AST ALT Alkaline Phosphatase Total Creatine Kinase CK-MB (CK-2) CK-MB (CK-2) Rel Index Troponin I NT-Pro-B Natriuret Pep 6090 H Total Protein Albumin Globulin Albumin/Globulin Ratio Lipase TSH 5.89 H Free T4 1.74 SARS-CoV-2 (PCR) Negative 08/15/22 08/15/22 08/15/22 02:13 05:47 05:47 WBC RBC Hgb Hct MCV MCH MCHC RDW Plt Count Neut % (Auto) Lymph % (Auto) [place] % (Auto) Eos % (Auto) Baso % (Auto) Neut # (Auto) Lymph # (Auto) [place] # (Auto) Eos # (Auto) Baso # (Auto) PT INR APTT Sodium 134 L Potassium 4.1 Chloride 96 L Carbon Dioxide 28 BUN 27 H Creatinine 0.89 Estimated GFR > 60 BUN/Creatinine Ratio 30.3 H Glucose 97 Calcium 9.2 Magnesium Total Bilirubin AST ALT Alkaline Phosphatase Total Creatine Kinase CK-MB (CK-2) CK-MB (CK-2) Rel Index Troponin I 0.013 0.014 NT-Pro-B Natriuret Pep Total Protein Albumin Globulin Albumin/Globulin Ratio Lipase TSH Free T4 SARS-CoV-2 (PCR) [facility] Medical History Fibromyalgia Hypertension Hypothyroidism Myocardial infarction Restrictive lung disease Surgical History Status post hip surgery Family History Mother TIA (transient ischemic attack) Father No problems noted. Social History household members: significant other Smoking Status: Former smoker alcohol intake: current substance use type: does not use Discharge Plan Discharge Plan Patient Disposition: Home Discharge orders & Medications Prescriptions: Continued fluoxetine [Prozac] 40 MG capsule 60 mg PO DAILY Qty: 0 fentanyl 75 mcg/hr patch 72 hour 75 mcg transdermal Q72H vitamin B complex Tablet 1 tab PO DAILY diazepam [Valium] 10 mg Tablet 10 mg PO BEDTIME cholecalciferol (vitamin D3) 50 mcg (2,000 unit) Tablet 50 mcg PO DAILY Rx Instructions: Takes 2 tablets daily oxycodone-acetaminophen [Percocet] 5-325 mg Tablet 1 tab PO Q6H PRN (Reason: Pain (Scale Score 4-6)) lamotrigine [Lamictal] 100 mg Tablet 100 mg PO DAILY aspirin 81 mg Tablet,Delayed Release (Dr/Ec) 81 mg PO DAILY furosemide 20 mg Tablet 20 mg PO DAILY levothyroxine 100 mcg Capsule 100 mcg PO DAILY potassium chloride 20 mEq Tablet Extended Release 20 meq PO DAILY Discontinued metoprolol tartrate 50 mg Tablet 50 mg PO DAILY Follow up/Referrals: Raffi Quiroga MD [Primary Care Provider] - 08/29/22 2:30 pm (appt:08/29 @ 2:[address] Saldivar (Dr Quiroga is out of town) ) Visit Report/Discharge Packet Instructions: DI for Bradycardia Stand Alone Forms: Patient Portal/API, Stroke Signs & Symptoms Discharge Data Primary Care Provider: Raffi Quiroga Attending Provider: Mindy Trent
== END 2022-08-15 15:00 | disposition home or self-care (01) ==
LOC: ED 08-15 01:17 → AC 08-15 01:57 → ICU 08-15 02:19
PROVIDERS: Student in an Organized Health Care Education/Training Program; Admitting Provider Nurse Practitioner Family; Emergency Provider Emergency Medicine; PCP Family Medicine; Visit Provider Nurse Practitioner Family
DX: R00.1 Bradycardia, unspecified (principal); M79.7 Fibromyalgia; I25.2 Old myocardial infarction; I71.40 Abdominal aortic aneurysm, without rupture, unspecified; J84.112 Idiopathic pulmonary fibrosis; G89.4 Chronic pain syndrome; F32.A Depression, unspecified; E03.9 Hypothyroidism, unspecified; E11.9 Type 2 diabetes mellitus without complications; Z20.822 Contact with and (suspected) exposure to COVID-19
CPT/HCPCS: 36415; 71045; 80048; 80053; 82550; 83690; 83735; 83880; 84439; 84443; 84484; 85025; 85610; 85730; 87635; 93005; 96372; 97161; 97165; 99284; C9803; G0378; J1650

== ENCOUNTER 2022-08-25 12:28 | Emergency (ER) | payer MEDICARE, BC, SELFPAY ==
[2022-08-15 02:19] VITALS: BMI 17.6
[2022-08-25 12:31] VITALS: BP 127/52; PULSE 70; RESP 17; TEMP 36.6; O2SAT 98
--- NOTE | 2022-08-25 12:37 | DI.RAD.S_ITS ---
PROCEDURE: XR HIP W PEL IF DONE LT 2V INDICATIONS: Hip pain TECHNIQUE: AP pelvis and lateral view of the left hip acquired. COMPARISON: [facility], [facility], XR HIP W PEL IF DONE LT 2V, 06/28/2022, 16:10. FINDINGS: Bones: Patient is status post left hip arthroplasty, with hardware components in expected positions. The hip joint appears congruent. The visualized bony structures appear intact. Soft tissues: Overlying postoperative changes are noted. No suspicious soft tissue densities. IMPRESSION: Left hip hemiarthroplasty good position. Moderate right hip osteoarthritis. No fracture Approved by: Donnie Jara M.D. on 08/25/2022 at 13:18
--- NOTE | 2022-08-25 13:28 | ED.LOWEXIN ---
HPI - Extremity Injury (Lower) <Dunia Dumont, [facility] - Last Filed: 08/25/22 14:44> General Chief Complaint: Extremity Injury, Lower Stated Complaint: Hip Pain Time Seen by Provider: 08/25/22 13:13 Source: patient Mode of arrival: Ambulatory History of Present Illness HPI Narrative: This is a 72-year-old female presents to the emergency department via EMS after a reported subluxation/dislocation of her left hip when she was transferring from a seated squatting position to standing. She states that she felt it pop out, and she fell down to her right knee, denies any injury, states that she was helped to stand by her and she was able to reduce it on her own with extension. She states that she is able to ambulate, denies any worsening pain, states that it hurt right afterwards but no longer does. She denies any pain at this time and is ambulatory. Denies any health changes over the last week, states that she has heart surgery coming up on 08/31/2022, her left hip arthroplasty was on 06/28/[address] Oh here at this hospital. She states that she has aortic valve problems and an aortic aneurysm. She is not on anticoagulants at this time, states she only takes a baby aspirin. Related Data Home Medications Medication Instructions Recorded Confirmed fluoxetine 40 mg capsule (Prozac) 60 mg PO DAILY ##0 03/06/13 08/25/22 fentanyl 75 mcg/hr transdermal 75 mcg transdermal Q72H pain 06/28/22 08/15/22 patch cholecalciferol (vitamin D3) 50 50 mcg PO DAILY 06/30/22 08/15/22 mcg (2,000 unit) tablet diazepam 10 mg tablet (Valium) 10 mg PO BEDTIME 06/30/22 08/25/22 lamotrigine 100 mg tablet 100 mg PO DAILY 06/30/22 08/25/22 (Lamictal) oxycodone-acetaminophen 5 mg-325 1 tab PO Q6H PRN Pain (Scale Score 06/30/22 08/15/22 mg tablet (Percocet) 4-6) vitamin B complex 1 tab PO DAILY 06/30/22 08/15/22 aspirin 81 mg tablet,delayed 81 mg PO DAILY 08/15/22 08/25/22 release furosemide 20 mg tablet 20 mg PO DAILY 08/15/22 08/25/22 levothyroxine 100 mcg capsule 100 mcg PO DAILY 08/15/22 08/25/22 potassium chloride 20 mEq 20 meq PO DAILY 08/15/22 08/25/22 tablet,extended release Allergies Allergy/AdvReac Type Severity Reaction Status Date / Time sulfamethoxazole Allergy Verified 08/25/22 12:33 [From ] trimethoprim [From ] Allergy Verified 08/25/22 12:33 adhesive tape AdvReac Verified 08/25/22 12:33 Review of Systems <NILESH Jennings - Last Filed: 08/25/22 14:44> Review of Systems ROS Unobtainable: All systems reviewed & are unremarkable except as noted in HPI and below Patient History <NILESH Jennings - Last Filed: 08/25/22 14:44> Medical History Fibromyalgia Hypertension Hypothyroidism Myocardial infarction Restrictive lung disease Surgical History Status post hip surgery Family History Mother TIA (transient ischemic attack) Father No problems noted. Social History household members: significant other Smoking Status: Former smoker alcohol intake: current substance use type: does not use Smoking Status: Former smoker alcohol intake frequency: 0-2 drinks per day Substance Use Type: methamphetamine Exam <NILESH Jennings - Last Filed: 08/25/22 14:44> Narrative Exam Narrative: Reviewed vitals signs and nursing notes. General: cooperative, comfortable, in no acute distress, well groomed, mildly tremulous, interactive and pleasant, seated but stood and walked around to show that she does not have a deficit, has steady gait HEENT: symmetrical facial expressions, dry mucous membranes Cardiovascular: regular rate and rhythm, no peripheral edema, warm extremities Respiratory: normal effort, able to speak in complete sentences, without wheezing, stridor, or abnormal breath sounds. No retractions or tachypnea. GI: abdomen soft, nontender to palpation, nondistended, without masses, rebound tenderness or exquisite tenderness with exam. MSK: moves all extremities, neurovascularly intact, no weakness, normal tone, ambulatory with steady gait, without limp, feet are equal in temperature and warm, pulses palpable and equal DP and PTs, Skin: brisk capillary refill, without pallor or erythema Neuro: normal speech and cognition, A&O x3, clear speech Psych: mental status is grossly normal, congruent mood, normal affect, pleasant and cooperative Initial Vital Signs Initial Vital Signs: Vital Signs Temperature 98 F 08/25/22 12:31 Pulse Rate 70 08/25/22 12:31 Respiratory Rate 17 08/25/22 12:31 Blood Pressure 127/52 L 08/25/22 12:31 Pulse Oximetry 98 08/25/22 12:31 Oxygen Delivery Method 08/25/22 12:31 <Lang Bell DO - Last Filed: 08/25/22 14:48> Initial Vital Signs Initial Vital Signs: Vital Signs Temperature 98 F 08/25/22 12:31 Pulse Rate 70 08/25/22 12:31 Respiratory Rate 17 08/25/22 12:31 Blood Pressure 127/52 L 08/25/22 12:31 Pulse Oximetry 98 08/25/22 12:31 Oxygen Delivery Method 08/25/22 12:31 Course <NILESH Jennings - Last Filed: 08/25/22 14:44> Orders Ordered: ED Orders 08/25/22 12:37 XR hip w pel if done LT 2V Stat Vital Signs Vital signs: Vital Signs - 8 hr 08/25/22 12:31 08/25/22 14:31 Temperature 98 F Pulse Rate 70 70 Respiratory Rate 17 18 Blood Pressure 127/52 L 102/50 L Pulse Oximetry 98 98 Oxygen Delivery Method Room Air Room Air <DO Kalen Lawrence Last Filed: 08/25/22 14:48> Orders Ordered: ED Orders 08/25/22 12:37 XR hip w pel if done LT 2V Stat Vital Signs Vital signs: Vital Signs - 8 hr 08/25/22 12:31 08/25/22 14:31 Temperature 98 F Pulse Rate 70 70 Respiratory Rate 17 18 Blood Pressure 127/52 L 102/50 L Pulse Oximetry 98 98 Oxygen Delivery Method Room Air Room Air MDM - Extremity Injury (Lower) <NILESH Jennings Last Filed: 08/25/22 14:44> Imaging Data Hip XR: Radiologist's Impression: PROCEDURE:? XR HIP W PEL IF DONE LT 2V ? INDICATIONS:? Hip pain ? TECHNIQUE:? AP pelvis and lateral view of the left hip acquired.? ? COMPARISON:? [facility], [place], XR HIP W PEL IF DONE LT 2V, 06/28/2022, 16:10. ? FINDINGS:? ? Bones:? Patient is status post left hip arthroplasty, with hardware components in expected positions.? The hip joint appears congruent.? The visualized bony structures appear intact.? ? Soft tissues:? Overlying postoperative changes are noted.? No suspicious soft tissue densities.? ? ? IMPRESSION:? Left hip hemiarthroplasty good position.? Moderate right hip osteoarthritis. ?No fracture ? Approved by: Donnie Jara M.D. on 08/25/2022 at 13:18? MDM Narrative Medical decision making narrative: Chief Complaint: Left hip pain Differential diagnoses include but are not limited to: Hip subluxation, hardware failure, pelvis fracture/injury, hemarthrosis, muscular strain/sprain, I have reviewed the patient's vital signs and nursing notes as well as prior records if available. Independently reviewed imaging including: Left hip x-ray with pelvis was negative for hardware problem or fracture Course of care and re-evaluations: Patient is wearing her fentanyl patch, denies any for pain medication, she is ambulatory, she walked around 2 times, she was given juice, crackers and a sandwich as she has not had any food today. When her blood pressure was being checked it was initially low and she was moved over to a room to recheck it from the hallway. When this was rechecked on 2 different types her systolic was over 100, she did not have any dizziness, lightheadedness or any other symptoms whatsoever. She states that she just has not had anything to eat or drink yet today and was given a full meal which she consumed prior to leaving and she felt better and her vitals have been rechecked after this as well. Patient understands to follow-up with her hip surgeon as needed and to keep a walker near her at all times, we reviewed her range of motion limitations and the hand book that she brought with her from surgery. Patient's symptoms improved over duration of stay with above-stated therapies. Social considerations that may affect disposition: none Questions are addressed and there is agreement with the plan and for follow-up. Patient is appropriate for outpatient management. MIPS: This encounter doesn't have any diagnosis' associated with MIPS criteria. Discharge Plan Departure Patient Disposition: Home Clinical Impression: Hip pain, History of arthroplasty of left hip Instructions: DI for Hip Pain Activity Restrictions/Additional Instructions: *You have been diagnosed with likely a hip subluxation with self resolution/reduction. Please return if you have any worsening hip pain. Your x-ray does not show any concerning findings, please avoid illness and I wish you well for your heart surgery. If you have worsening pain, please consider having this evaluated. Stay hydrated, use your walker to help support you so that you do not have a fall. Remember to review your exercises and limitations so that you do not have a similar incident and worse injury. *What to do: *Please continue to take your regular medications as directed. [ ] New medication prescriptions sent to your pharmacy: [ ] [ ] New medication written as a paper prescription [ x] No new medications given *Please follow up with your primary care provider in 2-3 days, call for an appointment. Let them know you were seen in the Emergency Department and that we asked that you be seen for follow-up. We will electronically transmit a record of today's note if your PCP is in our system *If you do not have a primary care provider please contact [phone] to establish care with one of [facility] primary care providers. *Return to Emergency Department if you should have any new, worsening, or concerning symptoms, such as [fever greater than 101F, chills, worsening pain, persistent vomiting or other bothersome symptoms]. Prescriptions: No Action fluoxetine [Prozac] 40 MG capsule 60 mg PO DAILY Qty: 0 fentanyl 75 mcg/hr patch 72 hour 75 mcg transdermal Q72H vitamin B complex Tablet 1 tab PO DAILY diazepam [Valium] 10 mg Tablet 10 mg PO BEDTIME cholecalciferol (vitamin D3) 50 mcg (2,000 unit) Tablet 50 mcg PO DAILY Rx Instructions: Takes 2 tablets daily oxycodone-acetaminophen [Percocet] 5-325 mg Tablet 1 tab PO Q6H PRN (Reason: Pain (Scale Score 4-6)) lamotrigine [Lamictal] 100 mg Tablet 100 mg PO DAILY aspirin 81 mg Tablet,Delayed Release (Dr/Ec) 81 mg PO DAILY furosemide 20 mg Tablet 20 mg PO DAILY levothyroxine 100 mcg Capsule 100 mcg PO DAILY potassium chloride 20 mEq Tablet Extended Release 20 meq PO DAILY Referrals: Braulio Oh MD [Physician] - Raffi Quiroga MD [Primary Care Provider] - Stand Alone Forms: Patient Portal/API <Lang Bell DO - Last Filed: 08/25/22 14:48> Cosign ED Attending Cosignature Attestation: Dr Bell Co-Sign Statement: I was available for consultation during this patient's emergency department visit. This chart is signed by myself for administrative purposes only. I did not have direct contact with this patient during this visit. They were seen independently by the APC.
[2022-08-25 14:31] VITALS: BP 102/50; PULSE 70; RESP 18; O2SAT 98
[2022-08-25 15:04] VITALS: BP 95/49; PULSE 69; RESP 18; O2SAT 98
--- NOTE | 2022-08-25 15:05 | PC.NURSE ---
pt sitting up in chair at bs eating maribel crackers and having juice, pt has not had anything else po prior today except 1 small can of soda. pt request cd and di is making a cd for her. printed reports and copy of xray image for patient as well at her request/. Provider reviewed vitals and gives ok to continue discharge with instructions to patient to eat and drink today. Rn instructed patient further not to skip meals or fluids and to leave here and have a meal and more juice or a soda to drink along with water.
[2022-08-25 15:25] VITALS: BP 109/53; PULSE 60; RESP 18; O2SAT 98
== END 2022-08-25 15:25 | disposition home or self-care (01) ==
PROVIDERS: Emergency Provider Nurse Practitioner Critical Care Medicine; PCP Family Medicine
DX: M25.552 Pain in left hip (principal); Z96.642 Presence of left artificial hip joint; Z79.899 Other long term (current) drug therapy
CPT/HCPCS: 73502; 99283

== ENCOUNTER 2022-11-24 13:45 | Emergency (ER) | payer MEDICARE, BC, SELFPAY ==
[2022-08-15 02:19] VITALS: BMI 17.6
[2022-11-24] VITALS (19 sets, daily range): BP systolic 148–189; BP diastolic 64–83; PULSE 46–138; RESP 16–41; TEMP 36.9; O2SAT 96–100; BMI 18.3
--- NOTE | 2022-11-24 13:55 | DI.CT.S_ITS ---
PROCEDURE: CT HEAD/BRAIN WO CON INDICATIONS: slip and fall/on thinners TECHNIQUE: Noncontrast 4.5 mm thick angled axial sections acquired from the foramen magnum to the vertex, with coronal and sagittal reformats. For radiation dose reduction, the following was used: automated exposure control, adjustment of mA and/or kV according to patient size. COMPARISON: [facility], CT, HEAD WITHOUT CONTRAST, 01/18/2009, 13:34. FINDINGS: Image quality: Excellent. CSF spaces: Basal cisterns are patent. No extra-axial fluid collections. Ventricles are normal in size and shape. Brain: No midline shift. No intracranial masses or hemorrhage. Lane-white matter interface is normal. Diffuse parenchymal volume loss with symmetric expansion of the CSF containing spaces. Periventricular white matter hypodensities are consistent with chronic microvascular ischemic disease. Skull and face: Calvarium and visualized facial bones are intact, without suspicious lesions. Sinuses: Visualized sinuses and mastoids are clear. IMPRESSION: 1. No acute intracranial hemorrhage or large territory infarct identified. 2. Sequela of chronic microvascular ischemic disease. Dictated by: Jn Puckett M.D. on 11/24/2022 at 13:40 Approved by: Jn Puckett M.D. on 11/24/2022 at 13:43
--- NOTE | 2022-11-24 13:55 | DI.CT.S_ITS ---
PROCEDURE: CT CERVICAL SPINE WO CON INDICATIONS: slip and fall/on thinners TECHNIQUE: Noncontrast 3 mm thick sections acquired from the skull base to the T4 level. Sagittal and coronal reformats were then constructed. For radiation dose reduction, the following was used: automated exposure control, adjustment of mA and/or kV according to patient size. COMPARISON: None. FINDINGS: Image quality: Excellent. Bones: No fractures or dislocations. Visualized superior ribs are intact. Remote right posterior rib fractures appear well healed. Soft tissues: Prevertebral soft tissues are normal in thickness. No paravertebral hematomas. No apical pneumothoraces. Ectasia of the ascending aorta measuring 3.7 cm. Small right pleural effusion. IMPRESSION: 1. No cervical fracture or prevertebral soft tissue swelling. 2. Right pleural effusion. 3. Aortic ectasia. Dictated by: Jn Puckett M.D. on 11/24/2022 at 13:32 Approved by: Jn Puckett M.D. on 11/24/2022 at 13:40
--- NOTE | 2022-11-24 15:03 | DI.RAD.S_ITS ---
PROCEDURE: XR SHOULDER RT MIN 2V INDICATIONS: pain after fall TECHNIQUE: 3 views of the shoulder were acquired. COMPARISON: [facility], CR, XR SHOULDER RT MIN 2V, 12/05/2018, 15:40. FINDINGS: Bones: No fractures or dislocations. No suspicious bony lesions. Visualized ribs appear intact. Soft tissues: No suspicious soft tissue calcifications. IMPRESSION: No visualized acute fracture or dislocation. However, if clinical concern and/or pain persist, short interval imaging followup in 7-10 days is recommended, as occult injury cannot be definitively excluded. Dictated by: Bee Patterson M.D. on 11/24/2022 at 15:44 Approved by: Bee Patterson M.D. on 11/24/2022 at 15:45
--- NOTE | 2022-11-24 15:03 | DI.RAD.S_ITS ---
PROCEDURE: XR ELBOW RT MIN 3V INDICATIONS: pain and swelling after fall TECHNIQUE: 3 views of the elbow were acquired. COMPARISON: None. FINDINGS: Bones: There is a slightly irregular appearance of the proximal radial head not well seen on all views. In addition, there is a nondisplaced lucency along the posterior distal humerus appearing to be at the level the condyle, again not well seen on all views. Soft tissues: Moderate elbow joint effusion. No suspicious soft tissue calcifications. IMPRESSION: Suspected either radial head and/or condylar nondisplaced fractures given appearance as well as prominent edema. However, they are not well seen and there is no displacement. Recommend follow-up imaging in 7-10 days for further evaluation. Dictated by: Bee Patterson M.D. on 11/24/2022 at 16:02 Approved by: Bee Patterson M.D. on 11/24/2022 at 16:03
--- NOTE | 2022-11-24 15:03 | ED_ITS ---
HPI - Fall General Chief Complaint: Fall Stated Complaint: mod trauma Time Seen by Provider: 11/24/22 13:58 Source: patient and EMS Mode of arrival: EMS Limitations: no limitations History of Present Illness HPI Narrative: Patient is a 72-year-old female brought in by EMS for evaluation of injuries that she sustained yesterday. She states that yesterday she was working in her yd and she slipped down some wet grass. She did hit her head. No loss of consciousness. She did sustain injuries to her right shoulder and right elbow. She does fall frequently. She has a left eye contusion and Steri-Strips over he r left eye. She states that that happened just a couple days ago when she was walking around an RV and hit her head on the rearview mirror. She reports no lower extremity injuries. No left upper extremity injuries. Patient is on anticoagulation. Related Data Home Medications Medication Instructions Recorded Confirmed fluoxetine 40 mg capsule (Prozac) 60 mg PO DAILY ##0 03/06/13 08/25/22 fentanyl 75 mcg/hr transdermal 75 mcg transdermal Q72H pain 06/28/22 08/15/22 patch cholecalciferol (vitamin D3) 50 50 mcg PO DAILY 06/30/22 08/15/22 mcg (2,000 unit) tablet diazepam 10 mg tablet (Valium) 10 mg PO BEDTIME 06/30/22 08/25/22 lamotrigine 100 mg tablet 100 mg PO DAILY 06/30/22 08/25/22 (Lamictal) oxycodone-acetaminophen 5 mg-325 1 tab PO Q6H PRN Pain (Scale Score 06/30/22 08/15/22 mg tablet (Percocet) 4-6) vitamin B complex 1 tab PO DAILY 06/30/22 08/15/22 aspirin 81 mg tablet,delayed 81 mg PO DAILY 08/15/22 08/25/22 release furosemide 20 mg tablet 20 mg PO DAILY 08/15/22 08/25/22 levothyroxine 100 mcg capsule 100 mcg PO DAILY 08/15/22 08/25/22 potassium chloride 20 mEq 20 meq PO DAILY 08/15/22 08/25/22 tablet,extended release Allergies Allergy/AdvReac Type Severity Reaction Status Date / Time sulfamethoxazole Allergy Verified 11/24/22 14:00 [From ] trimethoprim [From ] Allergy Verified 11/24/22 14:00 adhesive tape AdvReac Verified 11/24/22 14:00 Review of Systems Constitutional Constitutional: Reports system reviewed and no additional complaints, except as documented Cardiovascular Cardiovascular: Reports system reviewed and no additional complaints, except as documented Musculoskeletal Musculoskeletal: Reports system reviewed and no additional complaints, except as documented Integumentary/Breasts Skin/Breast: Reports system reviewed and no additional complaints, except as documented Hematologic/Lymphatic On Anticoagulants: Yes Patient History Medical History Fibromyalgia Hypertension Hypothyroidism Myocardial infarction Restrictive lung disease Surgical History Status post hip surgery Family History Mother TIA (transient ischemic attack) Father No problems noted. Social History household members: significant other Smoking Status: Former smoker alcohol intake: current substance use type: does not use Smoking Status: Former smoker alcohol intake frequency: 0-2 drinks per day Substance Use Type: methamphetamine Exam Initial Vital Signs Initial Vital Signs: Vital Signs Pulse Rate 55 L 11/24/22 13:49 Pulse Oximetry 99 11/24/22 13:49 HENMT Head: contusion (Above right eye and around left eye) and laceration (Above left eye) Face and sinus: normal facial exam Mouth: oral mucosae normal Resp Effort & Inspection: normal respiratory effort Auscultation: clear to auscultation bilaterally Cardio Rate: regular rate Rhythm: regular rhythm GI Inspection: normal to inspection Skin Other: Laceration with Steri-Strips above the left eye. Contusions above both of her eyes. Neuro General: patient alert, patient awake, patient oriented x3 and moves all extremities Speech: speech normal Extrem Other: Bilateral lower extremities unremarkable. Pelvis is unremarkable. Left upper extremities unremarkable. Right wrist is unremarkable. Swelling and discomfort to the right elbow. Right shoulder some discomfort with movement Procedures Orthopedic Splinting/Casting Injury #1: Side: right Upper Extremity Injury Location: elbow Upper Extremity Immobilizer: posterior splint Post splinting neuro exam: no change Post splinting vascular exam: no change Placed by: Nursing Course Orders Ordered: ED Orders 11/24/22 13:55 CT cervical spine wo con Stat CT head/brain wo con Stat 11/24/22 13:57 Consult to MARINE FITTER - Senior Communications Engineer Stat 11/24/22 14:00 EKG-12 Lead Stat 11/24/22 15:00 Basic Metabolic Panel Stat Complete Blood Count AUTO DIFF Stat Troponin & CK Cardiac Panel Stat 11/24/22 15:03 XR elbow RT min 3V Stat XR shoulder RT min 2V Stat Discontinued Medications Acetaminophen (Acetaminophen 325 Mg Tablet) 650 mg PO NOW ONE Stop: 11/24/22 16:05 Last Admin: 11/24/22 16:11 Dose: 650 mg Documented By: GUANACO Vital Signs Vital signs: Vital Signs - 8 hr 11/24/22 13:52 11/24/22 13:49 11/24/22 13:50 Temperature 98.4 F Pulse Rate 51 L 55 L Respiratory Rate 16 Blood Pressure 156/67 H 152/67 H Pulse Oximetry 99 99 Oxygen Delivery Method Room Air 11/24/22 13:50 11/24/22 14:00 11/24/22 14:00 Temperature Pulse Rate 54 L 50 L Respiratory Rate 17 Blood Pressure 162/71 H Pulse Oximetry 99 97 Oxygen Delivery Method Room Air MDM - Fall Lab Data Attestation: I reviewed the patient's lab results. 11/24/22 15:00 11/24/22 15:00 Labs: Lab Results 11/24/22 11/24/22 11/24/22 Range/Units 15:00 15:00 15:00 WBC 7.8 (4.5-11.0) X10^3/uL RBC 3.60 L (4.0-5.2) X10^6/uL Hgb 10.0 L (12.0-16.0) g/dL Hct 30.8 L (36-46) % MCV 85.6 (80-100) fL MCH 27.7 (26-34) PG MCHC 32.3 (30-36) % RDW 18.2 H (11.6-14.8) % Plt Count 206 (150-400) X10^3/uL Neut % (Auto) 68.0 (50-75) % Lymph % (Auto) 21.2 L (25-40) % [place] % (Auto) 8.5 (3-14) % Eos % (Auto) 1.6 L (2-4) % Baso % (Auto) 0.7 (0-2) % Neut # (Auto) 5300 (2346-6072) /uL Lymph # (Auto) 1600 (3322-9863) /uL [place] # (Auto) 700 (0-900) /uL Eos # (Auto) 100 (0-450) /uL Baso # (Auto) 100 (0-100) /uL Sodium 136 L (137-145) mmol/L Potassium 4.7 (3.4-5.1) mmol/L Chloride 100 (98-107) mmol/L Carbon Dioxide 30 (22-32) mmol/L BUN 34 H (7-17) mg/dL Creatinine 0.75 (0.52-1.04) mg/dL Estimated GFR > 60 (>60) mL/min BUN/Creatinine Ratio 45.3 H (6-22) Glucose 99 (80-110) mg/dL Calcium 8.4 (8.4-10.2) mg/dL Total Creatine Kinase 45 (30-135) U/L CK-MB (CK-2) TNP CK-MB (CK-2) Rel Index TNP Troponin I 0.031 (0.01-0.034) ng/mL Urine Dip Bedside Urine Glucose Negative Bedside Urine Bilirubin - Negative Bedside Urine Ketone - Negative Urine Specific [place] 1.015 Bedside Urine Occult Blood - Negative Bedside Urine pH 7 Bedside Urine Protein - Negative Bedside Urine Urobilinogen - Negative Bedside Urine Nitrite - Negative Bedside Urine Leukocytes - Negative Esterase Imaging Data CT scan - head: Radiologist's Impression: PROCEDURE:? CT HEAD/BRAIN WO CON ? INDICATIONS:? slip and fall/on thinners ? TECHNIQUE:? Noncontrast 4.5 mm thick angled axial sections acquired from the foramen magnum to the vertex, with coronal and sagittal reformats.? For radiation dose reduction, the following was used:? automated exposure control, adjustment of mA and/or kV according to patient size.? ? COMPARISON:? [facility], CT, HEAD WITHOUT CONTRAST, 01/18/2009, 13:34. ? FINDINGS:? Image quality:? Excellent.? ? CSF spaces:? Basal cisterns are patent.? No extra-axial fluid collections.? Ventricles are normal in size and shape.? ? Brain:? No midline shift.? No intracranial masses or hemorrhage.? Lane-white matter interface is normal.? Diffuse parenchymal volume loss with symmetric expansion of the CSF containing spaces.? Periventricular white matter hypodensities are consistent with chronic microvascular ischemic disease. ? Skull and face:? Calvarium and visualized facial bones are intact, without jasmine spicious lesions.? ? Sinuses:? Visualized sinuses and mastoids are clear.? ? IMPRESSION:? 1. No acute intracranial hemorrhage or large territory infarct identified. 2. Sequela of chronic microvascular ischemic disease CT - cervical spine: Radiologist's Impression: PROCEDURE:? CT CERVICAL SPINE WO CON ? INDICATIONS:? slip and fall/on thinners ? TECHNIQUE:? Noncontrast 3 mm thick sections acquired from the skull base to the T4 level.? Sagittal and coronal reformats were then constructed.? For radiation dose reduction, the following was used:? automated exposure control, adjustment of mA and/or kV according to patient size.? ? COMPARISON:? None. ? FINDINGS:? Image quality:? Excellent.? ? Bones:? No fractures or dislocations.? Visualized superior ribs are intact.? Remote right posterior rib fractures appear well healed. ? Soft tissues:? Prevertebral soft tissues are normal in thickness.? No paravertebral hematomas.? No apical pneumothoraces.? Ectasia of the ascending aorta measuring 3.7 cm. Small right pleural effusion. ? ? IMPRESSION:? 1. No cervical fracture or prevertebral soft tissue swelling. 2. Right pleural effusion. 3. Aortic ectasia. Extremity x-ray #1: Radiologist's Impression: PROCEDURE:? XR SHOULDER RT MIN 2V ? INDICATIONS:? pain after fall ? TECHNIQUE:? 3 views of the shoulder were acquired.? ? COMPARISON:? [facility], , XR SHOULDER RT MIN 2V, 12/05/2018, 15:40. ? FINDINGS:? ? Bones:? No fractures or dislocations.? No suspicious bony lesions.? Visualized ribs appear intact.? ? Soft tissues:? No suspicious soft tissue calcifications.? ? IMPRESSION:? No visualized acute fracture or dislocation. However, if clinical concern and/or pain persist, short interval imaging followup in 7-10 days is recommended, as occult injury cannot be definitively excluded. Extremity x-ray #2: Radiologist's Impression: PROCEDURE:? XR ELBOW RT MIN 3V ? INDICATIONS:? pain and swelling after fall ? TECHNIQUE:? 3 views of the elbow were acquired.? ? COMPARISON:? None. ? FINDINGS:? ? Bones:? There is a slightly irregular appearance of the proximal radial head not well seen on all views.? In addition, there is a nondisplaced lucency along the posterior distal humerus appearing to be at the level the condyle, again not well seen on all views. ? Soft tissues:? Moderate elbow joint effusion.? No suspicious soft tissue calcifications.? IMPRESSION:? Suspected either radial head and/or condylar nondisplaced fractures given appearance as well as prominent edema.? However, they are not well seen and there is no displacement.? Recommend follow-up imaging in 7-10 days for further evaluation. ECG Data Attestation: I personally reviewed and interpreted this ECG as follows: Interpretation: Sinus bradycardia Ventricular rate of 50 Sinus arrhythmia Normal axis No ST T wave changes MDM Narrative Medical decision making narrative: Head CT and cervical spine CT are unremarkable. Right shoulder x-ray is unremarkable. There was concern about a fracture to the right elbow on the x- ray. This does fit her clinical exam. She was placed in a posterior splint as described above with instructions in care instructions and follow-up. Patient was seen by social work. She has a contusion above her left eye which occurred a couple days ago and is not related to the incident what [facility]. She is a contusion above her right eye from the event that happened yesterday. No specific intervention needed here in the emergency department. No other injuries found on the exam nor reported by the patient. Will discharge patient home with return precautions. She expressed understanding and agreement. Discharge Plan Departure Patient Disposition: Home Clinical Impression: Contusion of eye, right, Closed fracture of right elbow Instructions: DI for Elbow Fracture, How to Take Care of Your Splint Activity Restrictions/Additional Instructions: The splint that was placed today does need to stay on and stay clean and stay dry. Continue to take all of your medications as directed. Contact the orthopedic doctors with a number provided below for follow-up. Return to emergency department for new symptoms. Prescriptions: No Action fluoxetine [Prozac] 40 MG capsule 60 mg PO DAILY Qty: 0 fentanyl 75 mcg/hr patch 72 hour 75 mcg transdermal Q72H vitamin B complex Tablet 1 tab PO DAILY diazepam [Valium] 10 mg Tablet 10 mg PO BEDTIME cholecalciferol (vitamin D3) 50 mcg (2,000 unit) Tablet 50 mcg PO DAILY Rx Instructions: Takes 2 tablets daily oxycodone-acetaminophen [Percocet] 5-325 mg Tablet 1 tab PO Q6H PRN (Reason: Pain (Scale Score 4-6)) lamotrigine [Lamictal] 100 mg Tablet 100 mg PO DAILY aspirin 81 mg Tablet,Delayed Release (Dr/Ec) 81 mg PO DAILY furosemide 20 mg Tablet 20 mg PO DAILY levothyroxine 100 mcg Capsule 100 mcg PO DAILY potassium chloride 20 mEq Tablet Extended Release 20 meq PO DAILY Referrals: Raffi Quiroga MD [Primary Care Provider] - Monica Topete MD [Physician] - Stand Alone Forms: Patient Portal/API
[2022-11-24 15:23] LABS: Add Manual Diff / Slide Review NO; Basophils Absolute Auto 100 /uL (0-100); Basophils Percent Auto 0.7 % (0-2); Eosinophils Absolute Auto 100 /uL (0-450); Eosinophils Percent Auto 1.6 % (2-4); Hematocrit 30.8 % (36-46); Lymphocytes Absolute Auto 1600 /uL (1100-4500); Lymphocytes Percent Auto 21.2 % (25-40); Mean Corpuscular HGB Conc 32.3 % (30-36); Mean Corpuscular Hemoglobin 27.7 PG (26-34); Mean Corpuscular Volume 85.6 fL (80-100); Monocytes Absolute Auto 700 /uL (0-900); Monocytes Percent Auto 8.5 % (3-14); Neutrophils Absolute Auto 5300 /uL (1500-7000); Platelet Count 206 X10^3/uL (150-400); Red Cell Distribution Width 18.2 % (11.6-14.8); White Blood Cell Count 7.8 X10^3/uL (4.5-11.0)
[2022-11-24 15:35] LABS: Creatine Kinase 45 U/L (30-135)
[2022-11-24 15:36] LABS: BUN Creatinine Ratio 45.3 (6-22); Blood Urea Nitrogen 34 mg/dL (7-17); Calcium 8.4 mg/dL (8.4-10.2); Carbon Dioxide 30 mmol/L (22-32); Chloride 100 mmol/L (98-107); Estimated Glomerular Filt Rate > 60 mL/min (>60); Glucose 99 mg/dL (80-110); HEMOLYSIS < 15 (0-50); Potassium 4.7 mmol/L (3.4-5.1); Sodium 136 mmol/L (137-145)
[2022-11-24 15:48] LABS: Troponin I 0.031 ng/mL (0.01-0.034)
[2022-11-24] MEDS: ACETAMINOPHEN 325 MG TABLET 650 MG PO (16:11)
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
== END 2022-11-24 18:44 | disposition home or self-care (01) ==
PROVIDERS: Emergency Provider Emergency Medicine; PCP Family Medicine
DX: S42.401A Unspecified fracture of lower end of right humerus, initial encounter for closed fracture (principal); S00.11XA Contusion of right eyelid and periocular area, initial encounter; S09.90XA Unspecified injury of head, initial encounter; R07.9 Chest pain, unspecified; W01.0XXA Fall on same level from slipping, tripping and stumbling without subsequent striking against object, initial encounter; Y93.H2 Activity, gardening and landscaping; Z79.01 Long term (current) use of anticoagulants
CPT/HCPCS: 29105; 36415; 70450; 72125; 73030; 73080; 80048; 81003; 82550; 84484; 85025; 93005; 99284

== ENCOUNTER → 2023-12-17 16:26 | Outpatient (CLI) | payer MEDICARE, BC, SELFPAY ==
[2022-08-15 02:19] VITALS: BMI 17.6
[2023-12-17 18:14] LABS: Hematocrit 43.1 % (36-46); Hemoglobin 14.5 g/dL (12.0-16.0); Mean Corpuscular HGB Conc 33.5 % (30-36); Mean Corpuscular Hemoglobin 29.9 PG (26-34); Mean Corpuscular Volume 89.1 fL (80-100); Platelet Count 320 X10^3/uL (150-400); Red Blood Cell Count 4.84 X10^6/uL (4.0-5.2); Red Cell Distribution Width 13.8 % (11.6-14.8); White Blood Cell Count 10.7 X10^3/uL (4.5-11.0)
[2023-12-17 19:07] LABS: Estimated Glomerular Filt Rate > 60 mL/min (>60)
== END ==
LOC: LAB 16:27
PROVIDERS: PCP Family Medicine; Referring Provider Family Medicine; Visit Provider Family Medicine
DX: I48.0 Paroxysmal atrial fibrillation (principal)
CPT/HCPCS: 36415; 82565; 85027

== ENCOUNTER 2024-08-22 01:42 | Emergency (ER) | payer MEDICARE, SELFPAY ==
[2022-08-15 02:19] VITALS: BMI 17.6
[2024-08-22 01:46] VITALS: BP 131/60; PULSE 71; O2SAT 97
[2024-08-22 01:48] VITALS: BP 131/60; PULSE 71; RESP 18; TEMP 37.1; O2SAT 96; BMI 20.5
[2024-08-22 02:00] VITALS: BP 128/59; PULSE 69; O2SAT 99
--- NOTE | 2024-08-22 02:01 | DI.RAD.S_ITS ---
PROCEDURE: XR ANKLE RT MIN 3V INDICATIONS: atraumatic lateral ankle swelling TECHNIQUE: 3 views of the ankle were acquired. COMPARISON: [facility], CR, XR ANKLE LT MIN 3V, 12/05/2018, 15:40. FINDINGS: Bones: No fractures or dislocations. Ankle mortise is normally aligned. No suspicious bony lesions. Soft tissues: No tibiotalar joint effusion. Achilles tendon appears normal. IMPRESSION: Soft tissue swelling fracture or foreign body Approved by: Donnie Jara M.D. on 08/22/2024 at 8:06
[2024-08-22] MEDS: HYDROCODONE/ACET 5/325 TABLET 1 TAB PO (02:12)
--- NOTE | 2024-08-22 02:26 | ED.EXTPRO ---
HPI - Extremity Problem General Chief complaint: Extremity Problem,Nontraumatic Stated complaint: swollen painful ankles. Time Seen by Provider: 08/22/24 01:44 Source: patient and EMS Mode of arrival: EMS History of Present Illness HPI Narrative: 74yoF presents by EMS for bilateral lower leg swelling. Patient states she thinks she was could be a allergic reaction to the amlodipine she just started. She states that her legs from her ankles to her knees feel like balloons and when she puts her feet down she says she feels like they're about to explode. She says her right ankle is swollen on the side too. Related Data Home Medications Medication Instructions Recorded Confirmed fluoxetine 40 mg capsule (Prozac) 60 mg PO DAILY ##0 03/06/13 08/25/22 fentanyl 75 mcg/hr transdermal 75 mcg transdermal Q72H pain 06/28/22 08/15/22 patch cholecalciferol (vitamin D3) 50 50 mcg PO DAILY 06/30/22 08/15/22 mcg (2,000 unit) tablet diazepam 10 mg tablet (Valium) 10 mg PO BEDTIME 06/30/22 08/25/22 lamotrigine 100 mg tablet 100 mg PO DAILY 06/30/22 08/25/22 (Lamictal) oxycodone-acetaminophen 5 mg-325 1 tab PO Q6H PRN Pain (Scale Score 06/30/22 08/15/22 mg tablet (Percocet) 4-6) vitamin B complex 1 tab PO DAILY 06/30/22 08/15/22 aspirin 81 mg tablet,delayed 81 mg PO DAILY 08/15/22 08/25/22 release furosemide 20 mg tablet 20 mg PO DAILY 08/15/22 08/25/22 levothyroxine 100 mcg capsule 100 mcg PO DAILY 08/15/22 08/25/22 potassium chloride 20 mEq 20 meq PO DAILY 08/15/22 08/25/22 tablet,extended release Previous Rx's Medication Instructions Recorded cephalexin 500 mg capsule 500 mg PO QID 5 days #20 caps 08/22/24 gabapentin 300 mg capsule 300 mg PO TID #30 caps 08/22/24 Allergies Allergy/AdvReac Type Severity Reaction Status Date / Time sulfamethoxazole Allergy Verified 11/24/22 14:00 [From ] trimethoprim [From ] Allergy Verified 11/24/22 14:00 adhesive tape AdvReac Verified 11/24/22 14:00 Patient History Medical History Myocardial infarction Hypothyroidism Restrictive lung disease Hypertension Fibromyalgia Surgical History Status post hip surgery Family History Mother TIA (transient ischemic attack) Father No problems noted. Social History household members: significant other Smoking Status: Former smoker alcohol intake: current substance use type: does not use Smoking Status: Former smoker alcohol intake frequency: 0-2 drinks per day Exam Initial Vital Signs Initial Vital Signs: Vital Signs Temperature 98.7 F 08/22/24 01:48 Pulse Rate 71 08/22/24 01:48 Respiratory Rate 18 08/22/24 01:48 Blood Pressure 131/60 08/22/24 01:48 Pulse Oximetry 96 08/22/24 01:48 Oxygen Delivery Method Room Air 08/22/24 01:48 Const: Awake, alert, appears chronically unwell Cardiac: regular rate, regular rhythm RESP: unlabored, clear bilaterally, no wheezing MSK: no obvious swelling/edema. Strong DP pulses, full ROM, no calf tenderness Skin: Warm, Dry, scattered excoriations over BLE to knees. Erythema and warmth over R lateral ankle Neuro: AO x3, CN II-XII grossly intact, moves all extremities Course Orders Ordered: ED Orders 08/22/24 02:01 XR ankle RT min 3V Stat Discontinued Medications Hydrocodone Bitart/Acetaminophen (Hydrocodone/Acet 5/325 Tablet) 1 tab PO NOW ONE Stop: 08/22/24 02:03 Last Admin: 08/22/24 02:12 Dose: 1 tab Documented By: COLLEEN Vital Signs Vital signs: Vital Signs - 8 hr 08/22/24 01:48 Temperature 98.7 F Pulse Rate 71 Respiratory Rate 18 Blood Pressure 131/60 Pulse Oximetry 96 Oxygen Delivery Method Room Air MDM - Extremity (Nontraumatic) MDM Narrative Medical decision making narrative: Nontoxic appearing patient with several days bilateral lower extremity swelling. Began after starting amlodipine. On exam there is no obvious swelling. She reports a stinging pain all over her legs. No pain with movement. Scattered excoriations over legs with probable areas of superimposed cellulitis. Patient counseled to cease taking her amlodipine. Plan to trial gabapentin for pain. Added keflex for probable cellulitis Discharge Plan Departure Patient Disposition: Home Clinical Impression: Acute ankle pain, Leg swelling Instructions: DI for Peripheral Edema -- Bilateral Activity Restrictions/Additional Instructions: I recommend stopping your amlodipine as this medication can cause leg swelling. Gabapentin is a good medication for nerve pain. I also plan to treat you for cellulitis with an antibiotic. These has been sent to the [facility] in [place]. Elevate your legs to help decrease swelling. After several days off of the amlodipine your swelling should improve. Talk to your primary care doctor about other blood pressure medications you can take Prescriptions: New gabapentin 300 mg capsule 300 mg PO TID Qty: 30 0RF cephalexin 500 mg capsule 500 mg PO QID 5 Days Qty: 20 0RF No Action fluoxetine [Prozac] 40 MG capsule 60 mg PO DAILY Qty: 0 fentanyl 75 mcg/hr patch 72 hour 75 mcg transdermal Q72H vitamin B complex Tablet 1 tab PO DAILY diazepam [Valium] 10 mg Tablet 10 mg PO BEDTIME cholecalciferol (vitamin D3) 50 mcg (2,000 unit) Tablet 50 mcg PO DAILY Rx Instructions: Takes 2 tablets daily oxycodone-acetaminophen [Percocet] 5-325 mg Tablet 1 tab PO Q6H PRN (Reason: Pain (Scale Score 4-6)) lamotrigine [Lamictal] 100 mg Tablet 100 mg PO DAILY aspirin 81 mg Tablet,Delayed Release (Dr/Ec) 81 mg PO DAILY furosemide 20 mg Tablet 20 mg PO DAILY levothyroxine 100 mcg Capsule 100 mcg PO DAILY potassium chloride 20 mEq Tablet Extended Release 20 meq PO DAILY Referrals: Raffi Quiroga MD [Primary Care Provider] - Stand Alone Forms: Patient Portal/API/Survey
[2024-08-22 02:30] VITALS: BP 143/67; PULSE 69; RESP 16; O2SAT 97
[2024-08-22 03:00] VITALS: BP 156/71; PULSE 73; O2SAT 96
== END 2024-08-22 03:14 | disposition home or self-care (01) ==
PROVIDERS: Emergency Provider Emergency Medicine; PCP Family Medicine
DX: R60.0 Localized edema (principal); M25.572 Pain in left ankle and joints of left foot; M25.571 Pain in right ankle and joints of right foot; I25.2 Old myocardial infarction; I10 Essential (primary) hypertension; E03.9 Hypothyroidism, unspecified; Z88.2 Allergy status to sulfonamides
CPT/HCPCS: 73610; 99283